=== PATIENT | male | born 1985 | race Caucasian/White ===

== ENCOUNTER 2016-08-24 16:45 | Emergency (ER) | payer BC ==
--- NOTE | 2016-08-24 18:22 | EDM.PDOC ---
ED HPI Skin/Rash - General Chief Complaint: Skin Complaint Stated Complaint: PAIN/INFECTION RT LEG Time Seen by Provider: 08/24/16 16:48 Source: Reports: Patient History Limitations: Reports: No limitations - History of Present Illness INITIAL COMMENTS - FREE TEXT/NARRATIVE: History of present illness: [] Patient complains of 3 days of a leg lesion of his right lateral leg that is causing severe pain. He denies any recent trauma to his leg. Patient states he does not feel well however he has not had any fevers, chills, the lesion is not draining any fluid. Review of systems: As per history of present illness and below otherwise all systems reviewed and negative. Past medical history: As per history of present illness and as reviewed below otherwise noncontributory. Surgical history: As per history of present illness and as reviewed below otherwise noncontributory. Social history: No reported history of drug or alcohol abuse. Family history: As per history of present illness and as reviewed below otherwise noncontributory. Physical exam: General: Well developed, well nourished in NAD HEENT: Atraumatic, normocephalic, pupils reactive, negative for conjunctival pallor or scleral icterus, mucous membranes moist, throat clear, neck supple, nontender, trachea midline. Lungs: Clear to auscultation, breath sounds equal bilaterally, chest nontender. Heart: S1S2, regular, negative for clicks, rubs, or JVD. Abdomen: Soft, nondistended, nontender. Negative for masses or hepatosplenomegaly. Negative for costovertebral tenderness. Pelvis: Stable nontender. Genitourinary: Deferred. Rectal: Deferred. Extremities: Atraumatic, negative for cords or calf pain. Neurovascular unremarkable. Neuro: Awake, alert, oriented. Cranial nerves II through XII unremarkable. Cerebellum unremarkable. Motor and sensory unremarkable throughout. Exam nonfocal. Diagnostics: [] CBC is normal and x-ray done is negative for gas or fracture. Therapeutics: []bactrim bid Impression: []cellulitis right leg Plan: []bactrim, tramadol for pain. warm soaks return if sx worsen Definitive disposition and diagnosis as appropriate pending reevaluation and review of above. - Related Data Allergies Allergy/AdvReac Type Severity Reaction Status Date / Time No Known Allergies Allergy Verified 08/24/16 17:08 Home Meds: Ambulatory Orders Medication Instructions Recorded Confirmed Sulfamethoxazole/Trimethoprim 1 each PO BID #20 tablet 08/24/16 [Bactrim Ds Tablet] traMADol [Ultram] 50 mg PO Q8H PRN #12 tablet 08/24/16 Past Medical History - Past Surgical History Musculoskeletal Surgical History: Reports: Other (see below) Other Musculoskeletal Surgeries/Procedures:: right foot partial amputation with reattachement. Social & Family History - Family History Family Medical History: Noncontributory - Tobacco Use Smoking Status *Q: Light Tobacco Smoker Years of Tobacco use: 3 Packs/Tins Daily: 0.5 - Recreational Drug Use Recreational Drug Use: No ED ROS GENERAL - Review of Systems Review Of Systems: See Below (See history of present illness) ED EXAM, SKIN/RASH Exam: See Below (See history of present illness) Course - Vital Signs Last Recorded V/S: Last Vital Signs Temp 36.6 C 08/24/16 17:09 Pulse 95 08/24/16 17:09 Resp 20 08/24/16 17:09 BP 147/85 H 08/24/16 17:09 Pulse Ox 98 08/24/16 17:09 - Orders/Labs/Meds Orders: Active Orders 24 hr Category Date Time Status Tibia Fibula Rt [CR] Stat Exams 08/24/16 17:15 Taken CULTURE BLOOD [BC] Stat Lab 08/24/16 17:28 Received CULTURE BLOOD [BC] Stat Lab 08/24/16 17:33 Received Blood Culture x2 Reflex Set [OM.PC] Stat Oth 08/24/16 17:16 Ordered Labs: Laboratory Tests 08/24/16 Range/Units 17:28 WBC 9.15 (4.0-11.0) K/uL RBC 4.85 (4.50-5.90) M/uL Hgb 14.7 (13.0-17.0) g/dL Hct 43.8 (38.0-50.0) % MCV 90.3 (80.0-98.0) fL MCH 30.3 (27.0-32.0) pg MCHC 33.6 (31.0-37.0) g/dL RDW Std Deviation 43.6 (28.0-62.0) fl RDW Coeff of Aruna 13 (11.0-15.0) % Plt Count 227 (150-400) K/uL MPV 10.00 (7.40-12.00) fL Neut % (Auto) 79.8 (48.0-80.0) % Lymph % (Auto) 12.9 L (16.0-40.0) % [place] % (Auto) 6.4 (0.0-15.0) % Eos % (Auto) 0.8 (0.0-7.0) % Baso % (Auto) 0.1 (0.0-1.5) % Neut # (Auto) 7.3 H (1.4-5.7) K/uL Lymph # (Auto) 1.2 (0.6-2.4) K/uL [place] # (Auto) 0.6 (0.0-0.8) K/uL Eos # (Auto) 0.1 (0.0-0.7) K/uL Baso # (Auto) 0.0 (0.0-0.1) K/uL Nucleated RBC % 0.0 /100WBC Nucleated RBCs # 0 K/uL Departure - Departure Time of Disposition: 18:31 Disposition: Home, Self-Care 01 Condition: good Clinical Impression: Cellulitis of leg Qualifiers: Laterality: right Qualified Code(s): L03.115 - Cellulitis of right lower limb Clinical Impression: (Ruled Out): Cellulitis and abscess of leg Prescriptions: Sulfamethoxazole/Trimethoprim [Bactrim Ds Tablet] 1 each PO BID #20 tablet traMADol [Ultram] 50 mg PO Q8H PRN #12 tablet PRN Reason: Pain Instructions: Cellulitis, Adult, [id number] Referrals: PCP,None [Primary Care Provider] - Forms: ED Department Discharge Additional Instructions: The following information is given to patients seen in the emergency department who are being discharged to home. This information is to outline your options for follow-up care. We provide all patients seen in our emergency department with a follow-up referral. The need for follow-up, as well as the timing and circumstances, are variable depending upon the specifics of your emergency department visit. If you don't have a primary care physician on staff, we will provide you with a referral. We always advise you to contact your personal physician following an emergency department visit to inform them of the circumstance of the visit and for follow-up with them and/or the need for any referrals to a consulting specialist. The emergency department will also refer you to a specialist when appropriate. This referral assures that you have the opportunity for follow-up care with a specialist. All of these measure are taken in an effort to provide you with optimal care, which includes your follow-up. Under all circumstances we always encourage you to contact your private physician who remains a resource for coordinating your care. When calling for follow-up care, please make the office aware that this follow-up is from your recent emergency room visit. If for any reason you are refused follow-up, please contact the [facility] Emergency Department at and asked to speak to the emergency department charge nurse. Tramadol and Bactrim [facility] [address] [place] [id number] - My Orders Last 24 Hours: My Active Orders 08/24/16 17:15 Tibia Fibula Rt [CR] Stat 08/24/16 17:16 Blood Culture x2 Reflex Set [OM.PC] Stat 08/24/16 17:28 CULTURE BLOOD [BC] Stat 08/24/16 17:33 CULTURE BLOOD [BC] Stat - Assessment/Plan Last 24 Hours: My Active Orders 08/24/16 17:15 Tibia Fibula Rt [CR] Stat 08/24/16 17:16 Blood Culture x2 Reflex Set [OM.PC] Stat 08/24/16 17:28 CULTURE BLOOD [BC] Stat 08/24/16 17:33 CULTURE BLOOD [BC] Stat
[2016-08-24 18:49] VITALS: BP 143/86
--- NOTE | 2016-08-25 14:10 | CR ---
EXAM DATE: 08/24/16 PATIENT'S AGE: 31 Patient: HANSA MORRIS Facility: [place], [place] Site . Site : 1985 Study: XRay Extremity tib/fib [id number]/10/2017 5:56:25 PM Ordering Physician: Joshua Childress Final Report: HISTORY: Cellulitis. Evaluate for gas-forming organism. Sore lateral mid tibia and fibula. FINDINGS: Four views of the right tibia and fibula demonstrate 2 screws within the talus. There is mild degenerative changes of the tibiotalar joint. There is mild prominence of the soft tissues overlying the mid anterior tibia. No air or radiopaque foreign body is identified within the soft tissues. No fracture or dislocation seen. IMPRESSION: No air is identified within the site of cellulitis over the mid right tibia. Dictated by Melvi Barrera MD @ 08/24/2016 6:21:29 PM Dictated by: Melvi Barrera MD @ 08/24/2016 18:21:31 (Electronic Signature) Report Signed by Proxy and Original Signed Document filed in the Medical Record. FAITH
== END 2016-08-24 18:48 | disposition home or self-care (01) ==
LOC: MW.ED 16:45
DX: L03.115 Cellulitis of right lower limb (principal); F17.210 Nicotine dependence, cigarettes, uncomplicated; Z98.890 Other specified postprocedural states
CPT/HCPCS: 36415; 73590-26-RT; 73590-RT; 85025; 87040; 99283; 99284

== ENCOUNTER 2016-12-06 15:11 | Emergency (ER) | payer BC ==
--- NOTE | 2016-12-06 15:19 | EDM.PDOC ---
ED HPI GENERAL MEDICAL PROBLEM - General Chief Complaint: Skin Complaint Stated Complaint: RASH ON ABDOMEN Time Seen by Provider: 12/06/16 15:19 Source of Information: Reports: Patient History Limitations: Reports: No Limitations - History of Present Illness INITIAL COMMENTS - FREE TEXT/NARRATIVE: HISTORY AND PHYSICAL: History of present illness: [Patient comes to the emergency room complaining of red itchy spots to his trunk and extremities. Started with itchy sensation behind his left ear but he does not believe he had any lesions. Itching and lesions began on his chest and abdomen the next day gradually spread to upper and lower extremities. Have been present for the past 4 days that are gradually worsening. Patient states that he has not been using any new laundry soap, lotions or shower gels. No one else in his home has similar symptoms. He [place] but his and children were there as well and they're symptom-free. He lives in an apartment with his family. He has otherwise been feeling well. No recent illnesses or infections. No fever or chills. No chest pain shortness of breath or difficulty breathing. No abdominal pain. He has tried oatmeal baths, calamine lotion, and Aloe Vera cream with no improvement in his itching. He has no pain associated.] Review of systems: As per history of present illness and below otherwise all systems reviewed and negative. Past medical history: As per history of present illness and as reviewed below otherwise noncontributory. Surgical history: As per history of present illness and as reviewed below otherwise noncontributory. Social history: No reported history of drug or alcohol abuse. Family history: As per history of present illness and as reviewed below otherwise noncontributory. Physical exam: HEENT: Atraumatic, normocephalic. No lesions behind either ear. Oral mucous membranes moist, no lesions noted. throat clear., neck supple, nontender, no lymphadenopathy. Lungs: Clear to auscultation, breath sounds equal bilaterally. Heart: S1S2, regular. Abdomen: Soft, nondistended, nontender. Skin: Well circumscribed erythematous maculopapular lesions scattered across chest, back, abdomen, upper and lower extremities. Scratch raymond noted to abdomen and left upper extremity. These lesions are also in the web of his fingers but they do not appear to be alyson type lesions. Genitourinary: Deferred. Rectal: Deferred. Extremities: Atraumatic, negative for cords or calf pain. Neurovascular unremarkable. Neuro: Awake, alert, oriented. Motor and sensory unremarkable throughout. Exam nonfocal. Therapeutics: [SoluMedrol 125mg IM] Impression: [allergic reaction] Plan: [Patient symptoms appear consistent with allergic reaction though his skin lesions do not look like a typical wheal/welt presentation. Will treat with Solu -Medrol 125 mg IM in the ER and he is given Rx for Medrol Dosepak. Encouraged him to establish care with a local primary care provider and to follow-up there if he has further concerns regarding this rash. Recommend Claritin or Zyrtec daily, and Benadryl at bedtime. He is in agreement with today's plan. All questions are answered and concerns are addressed.] Definitive disposition and diagnosis as appropriate pending reevaluation and review of above. - Related Data Allergies Allergy/AdvReac Type Severity Reaction Status Date / Time No Known Allergies Allergy Verified 12/06/16 15:19 Home Meds: Home Meds . [No Known Home Meds] 12/06/16 [History] Past Medical History - Past Surgical History Musculoskeletal Surgical History: Reports: Other (See Below) Social & Family History - Family History Family Medical History: Noncontributory - Tobacco Use Smoking Status *Q: Light Tobacco Smoker Years of Tobacco use: 3 Packs/Tins Daily: 0.5 - Recreational Drug Use Recreational Drug Use: No ED ROS GENERAL - Review of Systems Review Of Systems: ROS reveals no pertinent complaints other than HPI. ED EXAM, SKIN/RASH Exam: See Below Course - Vital Signs Last Recorded V/S: Last Vital Signs Temp 98.3 F 12/06/16 15:21 Pulse 80 12/06/16 15:21 Resp 18 12/06/16 15:21 BP 121/70 12/06/16 15:21 Pulse Ox 97 12/06/16 15:21 - Orders/Labs/Meds Meds: Medications Discontinued Medications Generic Name Dose Route Start Last Admin Trade Name Freq PRN Reason Stop Dose Admin Methylprednisolone Sodium Succinate 125 mg 12/06/16 15:27 12/06/16 15:35 Solu-Medrol IM 12/06/16 15:28 125 mg ONETIME ONE Administration Departure - Departure Time of Disposition: 15:30 Disposition: Home, Self-Care 01 Condition: Good Clinical Impression: Hives - Discharge Information Instructions: Hives Referrals: PCP,None [Primary Care Provider] - Forms: ED Department Discharge Additional Instructions: The following information is given to patients seen in the emergency department who are being discharged to home. This information is to outline your options for follow-up care. We provide all patients seen in our emergency department with a follow-up referral. The need for follow-up, as well as the timing and circumstances, are variable depending upon the specifics of your emergency department visit. If you don't have a primary care physician on staff, we will provide you with a referral. We always advise you to contact your personal physician following an emergency department visit to inform them of the circumstance of the visit and for follow-up with them and/or the need for any referrals to a consulting specialist. The emergency department will also refer you to a specialist when appropriate. This referral assures that you have the opportunity for follow-up care with a specialist. All of these measure are taken in an effort to provide you with optimal care, which includes your follow-up. Under all circumstances we always encourage you to contact your private physician who remains a resource for coordinating your care. When calling for follow-up care, please make the office aware that this follow-up is from your recent emergency room visit. If for any reason you are refused follow-up, please contact the [facility] emergency department at and asked to speak to the emergency department charge nurse. [address] [address] Establish care with a local primary care provider at the clinic listed above. Take Claritin 10 mg or Zyrtec 10 mg daily to reduce itching and allergic response. Return to ER as needed as discussed.
[2016-12-06 15:27] VITALS: BP 121/70
[2016-12-06] MEDS ORDERED: methylPREDNISolone Sodium Succinate 125 MG/2 ML SDV IM ONE (15:27)
== END 2016-12-06 16:04 | disposition home or self-care (01) ==
LOC: MW.ED 15:11
DX: L50.0 Allergic urticaria (principal); F17.210 Nicotine dependence, cigarettes, uncomplicated
CPT/HCPCS: 99283; J2930

== ENCOUNTER 2016-12-24 05:15 | Emergency (ER) | payer OTHER, BC ==
[2016-12-24] MEDS ORDERED: Bacitracin Oint 1 GM U/D Packet TOP ONE (05:28)
[2016-12-24] MEDS ORDERED: Ketorolac 60 MG/2 ML SDV IM ONE (05:40)
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
[2016-12-24] MEDS ORDERED: Lidocaine 1% with EPINEPHrine 1:100,000 20 ML MDV INJECT ONE (05:52)
[2016-12-24 06:48] VITALS: BP 122/79
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
== END 2016-12-24 06:50 | disposition home or self-care (01) ==
LOC: MW.ED 05:15
DX: S01.111A Laceration without foreign body of right eyelid and periocular area, initial encounter (principal); S20.219A Contusion of unspecified front wall of thorax, initial encounter; F17.210 Nicotine dependence, cigarettes, uncomplicated; V89.2XXA Person injured in unspecified motor-vehicle accident, traffic, initial encounter
CPT/HCPCS: 12011; 70486; 71020; 96372; 99284; J1885; 99283

== ENCOUNTER 2018-08-29 10:23 | Emergency (ER) | payer BC ==
[2018-08-29] MEDS ORDERED: Acetaminophen/HYDROcodone 325-5 MG Tab PO ONE (11:16)
[2018-08-29] MEDS ORDERED: Sulfamethoxazole/Trimethoprim 800-160 MG Tab PO ONE (11:16)
--- NOTE | 2018-08-29 11:18 | EDM.PDOC ---
ED HPI GENERAL MEDICAL PROBLEM - General Chief Complaint: Skin Complaint Stated Complaint: INFECTION ON LEG Time Seen by Provider: 08/29/18 11:01 Source of Information: Reports: Patient History Limitations: Reports: No Limitations - History of Present Illness INITIAL COMMENTS - FREE TEXT/NARRATIVE: HISTORY AND PHYSICAL: History of present illness: Patient is a 33-year-old male who presents to the emergency room with complaints of an abscess to the right mid lateral carcamo. 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 Noticed a small localized area that appeared to be like a "pimple" which is progressively gotten larger and more red surrounding the site. The area is fluctuant although he states that he has not had any drainage from the site. Patient denies any fever, chills, headache, change in vision, syncope or near syncope. Denies any chest pain, back pain, shortness of breath or cough. Denies any abdominal pain, nausea, vomiting, diarrhea, constipation or dysuria. Has not noted any blood in urine or stool. Patient has been eating and drinking appropriately. Review of systems: As per history of present illness and below otherwise all systems reviewed and negative. Past medical history: As per history of present illness and as reviewed below otherwise noncontributory. Surgical history: As per history of present illness and as reviewed below otherwise noncontributory. Social history: See social history for further information Family history: As per history of present illness and as reviewed below otherwise noncontributory. Physical exam: General: Well-developed and well-nourished 33-year-old male. Alert and oriented. Nontoxic appearing and in no acute distress. HEENT: Atraumatic, normocephalic, pupils equal and reactive bilaterally, negative for conjunctival pallor or scleral icterus, neck supple, nontender, trachea midline. No drooling or trismus noted. No meningeal signs. No hot potato voice noted. Lungs: Clear to auscultation, breath sounds equal bilaterally, chest nontender. Heart: S1S2, regular rate and rhythm without overt murmur Abdomen: Soft, nondistended, nontender. Pelvis: Stable nontender. Genitourinary: Deferred. Rectal: Deferred. Skin: Quarter size area of fluctuance with pinpoint center, tender with palpation. Palmar sized surface of erythema surrounding the abscess. Otherwise skin is Intact, warm, dry. No lesions or rashes noted. Extremities: See skin. Atraumatic, moves all extremities per self with difficulty or deficits, negative for cords or calf pain. Neurovascular unremarkable. Neuro: Awake, alert, oriented. Cranial nerves II through XII unremarkable. Cerebellum unremarkable. Motor and sensory unremarkable throughout. Exam nonfocal. Notes: 1% lidocaine was used to anesthetize the area. 11 blade was used to I&D the area , and not conditions were broken up. Minimal amount of purulent drainage was expressed from the site. The surrounding erythema was outlined with surgical marker. We discussed the need for close follow-up with primary care as there is both the abscess and early cellulitis surrounding skin. Supportive care measures were reviewed and discussed. Voices understanding and is agreeable to plan of care. Denies any further questions or concerns at this time. Diagnostics: None Therapeutics: I&D, Bactrim DS, [place] Prescription: Bactrim DS Tramadol Impression: Abscess Cellulitis, right lower extremity Plan: 1. Keep the area clean and dry. Continue to monitor for signs of improvement. Monitor the area that was outlined with the surgical marker as we discussed. 2. Take the antibiotic as directed. You may use the tramadol as directed. Do not take with driving or needing to be functioning outside of the house assist does cause drowsiness. 3. Follow-up with your primary care provider as we discussed. Return to the ED as needed and as discussed. Definitive disposition and diagnosis as appropriate pending reevaluation and review of above. Right Lower Leg Pain Score (Numeric/FACES): 10 - Related Data Allergies Allergy/AdvReac Type Severity Reaction Status Date / Time No Known Allergies Allergy Verified 12/24/16 05:27 Home Meds: Home Meds Sulfamethoxazole/Trimethoprim [Bactrim Ds Tablet] 1 each PO BID 10 Days #20 tablet 08/29/18 [Rx] traMADol [Ultram] 50 mg PO Q4H PRN #15 tab 08/29/18 [Rx] Past Medical History - Past Health History Medical/Surgical History: Denies Medical/Surgical History HEENT History: Reports: None Cardiovascular History: Reports: None Respiratory History: Reports: None Gastrointestinal History: Reports: None Genitourinary History: Reports: None Neurological History: Reports: None Psychiatric History: Reports: None Endocrine/Metabolic History: Reports: None Hematologic History: Reports: None Oncologic (Cancer) History: Reports: None Dermatologic History: Reports: None - Infectious Disease History Infectious Disease History: Reports: MRSA - Past Surgical History Head Surgeries/Procedures: Reports: None Musculoskeletal Surgical History: Reports: Other (See Below) Other Musculoskeletal Surgeries/Procedures:: ankle surgery Social & Family History - Family History Family Medical History: Noncontributory - Tobacco Use Smoking Status *Q: Never Smoker - Caffeine Use Caffeine Use: Reports: Coffee - Recreational Drug Use Recreational Drug Use: No ED ROS GENERAL - Review of Systems Review Of Systems: ROS reveals no pertinent complaints other than HPI. ED EXAM, SKIN/RASH Exam: See Below Course - Vital Signs Last Recorded V/S: Last Vital Signs Temp 97.2 F 08/29/18 11:54 Pulse 68 08/29/18 11:54 Resp 18 08/29/18 10:57 BP 130/80 08/29/18 11:54 Pulse Ox 97 08/29/18 11:54 - Orders/Labs/Meds Orders: Active Orders 24 hr Category Date Time Status Communication Order [RC] STAT Care 08/29/18 11:18 Active Meds: Medications Discontinued Medications Generic Name Dose Route Start Last Admin Trade Name Freq PRN Reason Stop Dose Admin Hydrocodone Bitart/Acetaminophen 1 tab 08/29/18 11:16 08/29/18 11:38 [place] 325-5 Mg PO 08/29/18 11:17 1 tab ONETIME ONE Administration Lidocaine HCl 5 ml 08/29/18 11:03 08/29/18 11:54 Xylocaine-Mpf 1% INJECT 08/29/18 11:04 5 ml ONETIME ONE Administration Trimethoprim/Sulfamethoxazole 1 tab 08/29/18 11:16 08/29/18 11:39 Septra Ds PO 08/29/18 11:17 1 tab ONETIME ONE Administration Departure - Departure Time of Disposition: 11:17 Disposition: Home, Self-Care 01 Clinical Impression: Abscess Cellulitis Qualifiers: Site of cellulitis: extremity Site of cellulitis of extremity: lower extremity Laterality: right Qualified Code(s): L03.115 - Cellulitis of right lower limb - Discharge Information Prescriptions: Sulfamethoxazole/Trimethoprim [Bactrim Ds Tablet] 1 each PO BID 10 Days #20 tablet traMADol [Ultram] 50 mg PO Q4H PRN #15 tab PRN Reason: Pain Instructions: Skin Abscess, [id number], Cellulitis, Adult, [id number] Referrals: PCP,Unknown [Primary Care Provider] - Forms: ED Department Discharge Additional Instructions: The following information is given to patients seen in the emergency department who are being discharged to home. This information is to outline your options for follow-up care. We provide all patients seen in our emergency department with a follow-up referral. The need for follow-up, as well as the timing and circumstances, are variable depending upon the specifics of your emergency department visit. If you don't have a primary care physician on staff, we will provide you with a referral. We always advise you to contact your personal physician following an emergency department visit to inform them of the circumstance of the visit and for follow-up with them and/or the need for any referrals to a consulting specialist. The emergency department will also refer you to a specialist when appropriate. This referral assures that you have the opportunity for follow-up care with a specialist. All of these measure are taken in an effort to provide you with optimal care, which includes your follow-up. Under all circumstances we always encourage you to contact your private physician who remains a resource for coordinating your care. When calling for follow-up care, please make the office aware that this follow-up is from your recent emergency room visit. If for any reason you are refused follow-up, please contact the [facility] Emergency Department at and asked to speak to the emergency department charge nurse. [facility] Primary Care [address] [place] [id number] [facility] [address] [place] [id number] 1. Keep the area clean and dry. Continue to monitor for signs of improvement. Monitor the area that was outlined with the surgical marker as we discussed. 2. Take the antibiotic as directed. You may use the tramadol as directed. Do not take with driving or needing to be functioning outside of the house assist does cause drowsiness. 3. Follow-up with your primary care provider as we discussed. Return to the ED as needed and as discussed. - My Orders Last 24 Hours: My Active Orders 08/29/18 11:18 Communication Order [RC] STAT - Assessment/Plan Last 24 Hours: My Active Orders 08/29/18 11:18 Communication Order [RC] STAT
[2018-08-29 11:55] VITALS: BP 130/80
== END 2018-08-29 11:55 | disposition home or self-care (01) ==
LOC: MW.ED 10:23
DX: L02.415 Cutaneous abscess of right lower limb (principal); L03.115 Cellulitis of right lower limb; Z79.899 Other long term (current) drug therapy
CPT/HCPCS: 10060; 99282; A9270; J2001

== ENCOUNTER 2018-11-04 20:48 | Emergency (ER) | payer BC ==
[2018-11-04] MEDS ORDERED: Sodium Chloride 0.9% 1,000 ML IV ONE (21:33)
--- NOTE | 2018-11-04 21:34 | EDM.PDOC ---
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 The spillover last 5 days. No fever chills nausea vomiting or other complaints Review of systems: As per history of present illness and below otherwise all systems reviewed and negative. Past medical history: As per history of present illness and as reviewed below otherwise noncontributory. Surgical history: As per history of present illness and as reviewed below otherwise noncontributory. Social history: No reported history of drug or alcohol abuse. Family history: As per history of present illness and as reviewed below otherwise noncontributory. Physical exam: HEENT: Atraumatic, normocephalic, pupils reactive, negative for conjunctival pallor or scleral icterus, mucous membranes moist, throat clear, neck supple, nontender, trachea midline. Lungs: Clear to auscultation, breath sounds equal bilaterally, chest nontender. Heart: S1S2, regular, negative for clicks, rubs, or JVD. Abdomen: Soft, nondistended, nontender. Negative for masses or hepatosplenomegaly. Negative for costovertebral tenderness. Pelvis: Stable nontender. Genitourinary patient has a area of erythema and induration in his left groin with no fluctuance this is approximately 3 cm x 5 cm. And tender to palpation Rectal: Deferred. Extremities: Atraumatic, negative for cords or calf pain. Neurovascular unremarkable. Neuro: Awake, alert, oriented. Cranial nerves II through XII unremarkable. Cerebellum unremarkable. Motor and sensory unremarkable throughout. Exam nonfocal. Diagnostics: CBC CMP CT abdomen and pelvis with IV contrast Therapeutics: Saline 1 L bolus Impression: #1 left groin cellulitis rule out abscess Definitive disposition and diagnosis as appropriate pending reevaluation and review of above. left groin Pain Score (Numeric/FACES): 8 - Related Data Allergies Allergy/AdvReac Type Severity Reaction Status Date / Time No Known Allergies Allergy Verified 11/04/18 21:26 Home Meds: Home Meds . [No Known Home Meds] 11/04/18 [History] Past Medical History - Past Health History Medical/Surgical History: Denies Medical/Surgical History HEENT History: Reports: None Cardiovascular History: Reports: None Respiratory History: Reports: None Gastrointestinal History: Reports: None Genitourinary History: Reports: None Neurological History: Reports: None Psychiatric History: Reports: None Endocrine/Metabolic History: Reports: None Hematologic History: Reports: None Oncologic (Cancer) History: Reports: None Dermatologic History: Reports: None - Infectious Disease History Infectious Disease History: Reports: Chicken Pox - Past Surgical History Head Surgeries/Procedures: Reports: None Musculoskeletal Surgical History: Reports: Other (See Below) Other Musculoskeletal Surgeries/Procedures:: 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 Social & Family History - Family History Family Medical History: Noncontributory - Caffeine Use Caffeine Use: Reports: Coffee - Recreational Drug Use Recreational Drug Use: Yes ED ROS GENERAL - Review of Systems Review Of Systems: ROS reveals no pertinent complaints other than HPI. ED EXAM, SKIN/RASH Exam: See Below (See dictation) Course - Vital Signs Last Recorded V/S: Last Vital Signs Temp 36.9 C 11/04/18 21:23 Pulse 93 11/04/18 21:23 Resp 18 11/04/18 21:23 BP 149/93 H 11/04/18 21:23 Pulse Ox 96 11/04/18 21:23 - Orders/Labs/Meds Labs: Laboratory Tests 11/04/18 11/04/18 Range/Units 21:39 21:39 WBC 11.81 H (4.0-11.0) K/uL RBC 4.66 (4.50-5.90) M/uL Hgb 14.5 (13.0-17.0) g/dL Hct 41.2 (38.0-50.0) % MCV 88.4 (80.0-98.0) fL MCH 31.1 (27.0-32.0) pg MCHC 35.2 (31.0-37.0) g/dL RDW Std Deviation 41.0 (28.0-62.0) fl RDW Coeff of Aruna 13 (11.0-15.0) % Plt Count 204 (150-400) K/uL MPV 10.70 (7.40-12.00) fL Neut % (Auto) 83.3 H (48.0-80.0) % Lymph % (Auto) 8.9 L (16.0-40.0) % [place] % (Auto) 6.8 (0.0-15.0) % Eos % (Auto) 0.9 (0.0-7.0) % Baso % (Auto) 0.1 (0.0-1.5) % Neut # (Auto) 9.8 H (1.4-5.7) K/uL Lymph # (Auto) 1.1 (0.6-2.4) K/uL [place] # (Auto) 0.8 (0.0-0.8) K/uL Eos # (Auto) 0.1 (0.0-0.7) K/uL Baso # (Auto) 0.0 (0.0-0.1) K/uL Nucleated RBC % 0.0 /100WBC Nucleated RBCs # 0 K/uL Sodium 134 L (136-148) mmol/L Potassium 3.6 (3.5-5.1) mmol/L Chloride 101 (98-107) mmol/L Carbon Dioxide 24.8 (21.0-32.0) mmol/L BUN 18 (7.0-18.0) mg/dL Creatinine 0.8 (0.8-1.3) mg/dL Est Cr Clr Drug Dosing 155.50 mL/min Estimated GFR (MDRD) > 60.0 ml/min Glucose 106 (74-106) mg/dL Calcium 9.0 (8.5-10.1) mg/dL Total Bilirubin 0.7 (0.2-1.0) mg/dL AST 17 (15-37) IU/L ALT 28 (14-63) IU/L Alkaline Phosphatase 73 (46-116) U/L Total Protein 7.4 (6.4-8.2) g/dL Albumin 4.2 (3.4-5.0) g/dL Globulin 3.2 (2.6-4.0) g/dL Albumin/Globulin Ratio 1.3 (0.9-1.6) Meds: Medications Discontinued Medications Generic Name Dose Route Start Last Admin Trade Name Freq PRN Reason Stop Dose Admin Sodium Chloride 1,000 mls @ 999 mls/hr 11/04/18 21:33 11/04/18 21:45 Normal Saline IV 11/04/18 22:33 999 mls/hr STAT ONE Administration Iopamidol 100 ml 11/04/18 23:10 11/04/18 23:11 Isovue Multipack-370 (76%) IVPUSH 11/04/18 23:11 100 ml ONETIME STA Administration Departure - Departure Time of Disposition: 23:26 Disposition: Home, Self-Care 01 Condition: Good Clinical Impression: Cellulitis Qualifiers: Site of cellulitis: extremity Site of cellulitis of extremity: lower extremity Laterality: right Qualified Code(s): L03.115 - Cellulitis of right lower limb - Discharge Information Referrals: PCP,None [Primary Care Provider] - Forms: ED Department Discharge Additional Instructions: The following information is given to patients seen in the emergency department who are being discharged to home. This information is to outline your options for follow-up care. We provide all patients seen in our emergency department with a follow-up referral. The need for follow-up, as well as the timing and circumstances, are variable depending upon the specifics of your emergency department visit. If you don't have a primary care physician on staff, we will provide you with a referral. We always advise you to contact your personal physician following an emergency department visit to inform them of the circumstance of the visit and for follow-up with them and/or the need for any referrals to a consulting specialist. The emergency department will also refer you to a specialist when appropriate. This referral assures that you have the opportunity for followup care with a specialist. All of these measure are taken in an effort to provide you with optimal care, which includes your followup. Under all circumstances we always encourage you to contact your private physician who remains a resource for coordinating your care. When calling for followup care, please make the office aware that this follow-up is from your recent emergency room visit. If for any reason you are refused follow-up, please contact the [facility] emergency department at and asked to speak to the emergency department charge nurse. Clindamycin and Bactrim as prescribed warm compresses as directed follow-up private medical doctor for reevaluation and return as needed as discussed
[2018-11-04 22:12] LABS: CHLORIDE,CL 101 mmol/L (98-107); SODIUM,NA 134 mmol/L (136-148)
[2018-11-04] MEDS ORDERED: Iopamidol 755 MG/ML 500 ML Multipack Bottle IVPUSH STA (23:10)
--- NOTE | 2018-11-04 23:24 | CT ---
INDICATION: Pain and swelling in left groin area. CT ABDOMEN AND PELVIS WITH CONTRAST TECHNIQUE: Multidetector CT imaging was performed through the abdomen and pelvis following intravenous contrast administration using 100 mL Isovue 370. Coronal and sagittal reconstructions were generated. COMPARISON: None. FINDINGS: Lower chest: Minimal basilar lung atelectasis. Liver: Within normal limits. Gallbladder and bile ducts: No gallbladder wall thickening or calcified gallstones. No biliary dilation identified. Pancreas: Unremarkable. Spleen: Normal. Adrenals: No nodules or masses. Kidneys, ureters, and urinary bladder: Small nonobstructing left intrarenal stones. Very small left renal cyst. No hydronephrosis. No bladder mass or definite wall thickening. Gastrointestinal tract: Normal caliber bowel without wall thickening. The appendix is normal. Vascular structures: Normal for age. Peritoneum: No free air, abscess, or significant free fluid. Lymph nodes: No pathologically enlarged nodes identified. Reproductive organs: No pelvic masses. Bones and extra-abdominal soft tissues: Unremarkable bony structures. Subcutaneous fat stranding and skin thickening over the left groin, consistent with superficial cellulitis. No fluid collections suggestive of abscess. IMPRESSION: 1. Subcutaneous fat stranding and skin thickening over the left groin consistent with superficial cellulitis. No abscess identified. 2. Small nonobstructing left intrarenal stones. ANDREINA DC MD [employer] Dictated by Dwayne Dc MD @ 11/04/2018 11:22:56 PM Dictated by: Dwayne Dc MD @ 11/04/2018 23:23:20 (Electronically Signed)
[2018-11-04 23:43] VITALS: BP 130/80
== END 2018-11-04 23:42 | disposition home or self-care (01) ==
LOC: MW.ED 20:48
DX: L03.115 Cellulitis of right lower limb (principal)
CPT/HCPCS: 74177; 80053; 85025; 96360; 99284; J7040; Q9967

== ENCOUNTER 2018-11-06 20:37 | Observation (INO) | payer BC ==
[2018-11-06] MEDS ORDERED: Sodium Chloride 0.9% 1,000 ML IV ONE (20:45)
--- NOTE | 2018-11-06 20:59 | EDM.PDOC ---
ED HPI GENERAL MEDICAL PROBLEM - General Chief Complaint: Skin Complaint Stated Complaint: HIP/PELVIS INFECTION Time Seen by Provider: 11/06/18 20:37 Source of Information: Reports: Patient History Limitations: Reports: No Limitations - History of Present Illness INITIAL COMMENTS - FREE TEXT/NARRATIVE: HISTORY AND PHYSICAL: History of present illness: Patient is a 33-year-old male presents to the ED today for concern of a cellulitis infection that has worsened despite outpatient treatment. Patient was seen here in the ED on 11/04/18 and was given a trial of outpatient antibiotics for a cellulitis. Patient returns for worsening of the cellulitis despite taking antibiotics. Patient denies any new symptoms or any other concerns at this time. While here in the ED 2 days ago, he did have a CT scan to rule out abscess was negative. Patient denies fever, chills, chest pain, shortness of breath, or cough. Denies headache, neck stiff ness, change in vision, syncope, or near syncope. Denies nausea, vomiting, abdominal pain, diarrhea, constipation, or dysuria. Has not noted any blood in urine or stool. Patient has been eating and drinking appropriately. Review of systems: As per history of present illness and below otherwise all systems reviewed and negative. Past medical history: As per history of present illness and as reviewed below otherwise noncontributory. Surgical history: As per history of present illness and as reviewed below otherwise noncontributory. Social history: See social history for further information Family history: As per history of present illness and as reviewed below otherwise noncontributory. Physical exam: General: Patient is alert, oriented, and in no acute distress. Patient sitting comfortably on exam table. HEENT: Atraumatic, normocephalic, pupils equal and reactive bilaterally, negative for conjunctival pallor or scleral icterus, mucous membranes moist, TMs normal bilaterally, throat clear, neck supple, nontender, trachea midline. No drooling or trismus noted. No meningeal signs. No hot potato voice noted. Lungs: Clear to auscultation, breath sounds equal bilaterally, chest nontender. Heart: S1S2, regular rate and rhythm without overt murmur Abdomen: Soft, nondistended, nontender. Negative for masses or hepatosplenomegaly. Negative for costovertebral tenderness. Pelvis: Stable nontender. Genitourinary: Deferred. Rectal: Deferred. Skin: Erythema is spread up into the left flank area and down into the left leg. There is 1 area of swelling in the left groin approximately 8cm by 3 cm. Extremities: Atraumatic, negative for cords or calf pain. Neurovascular unremarkable. Neuro: Awake, alert, oriented. Cranial nerves II through XII unremarkable. Cerebellum unremarkable. Motor and sensory unremarkable throughout. Exam nonfocal. Notes: Dr. Olmos directly involved in patient care. Dr. Hoffman was directly involved in patient care. Dr. Wong consult on patient and will admit to observation. Voices understanding and is agreeable to plan of care. Denies any further questions or concerns at this time. Diagnostics: CBC, CMP, UA, lactate, blood cultures x 2, US groin Therapeutics: NS, vancomycin Impression: Groin cellulitis Failed outpatient treatment Plan: 1. Admit to observation to Dr. Wong. Definitive disposition and diagnosis as appropriate pending reevaluation and review of above. Headache Pain Score (Numeric/FACES): 6 left groin Pain Score (Numeric/FACES): 7 - Related Data Allergies Allergy/AdvReac Type Severity Reaction Status Date / Time No Known Allergies Allergy Verified 11/07/18 01:00 Home Meds: Home Meds Sulfamethoxazole/Trimethoprim [Bactrim Ds Tablet] 1 each PO BID 10 Days #20 tablet 11/08/18 [Rx] Past Medical History - Past Health History Medical/Surgical History: Denies Medical/Surgical History HEENT History: Reports: None Cardiovascular History: Reports: None Respiratory History: Reports: None Gastrointestinal History: Reports: None Genitourinary History: Reports: None Neurological History: Reports: None Psychiatric History: Reports: None Endocrine/Metabolic History: Reports: None Hematologic History: Reports: None Oncologic (Cancer) History: Reports: None Dermatologic History: Reports: None - Infectious Disease History Infectious Disease History: Reports: Chicken Pox - Past Surgical History Head Surgeries/Procedures: Reports: None Musculoskeletal Surgical History: Reports: Other (See Below) Other Musculoskeletal Surgeries/Procedures:: 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 Social & Family History - Family History Family Medical History: Noncontributory - Caffeine Use Caffeine Use: Reports: Coffee ED ROS GENERAL - Review of Systems Review Of Systems: ROS reveals no pertinent complaints other than HPI. ED EXAM, SKIN/RASH Exam: See Below (see dictation) Course - Vital Signs Last Recorded V/S: Last Vital Signs Temp 36.7 C 11/08/18 08:00 Pulse 73 11/08/18 08:00 Resp 18 11/08/18 08:00 BP 130/77 11/08/18 08:00 Pulse Ox 96 11/08/18 08:00 - Orders/Labs/Meds Labs: Laboratory Tests 11/06/18 11/06/18 11/06/18 Range/Units 20:58 20:58 20:58 WBC 9.78 (4.0-11.0) K/uL RBC 4.74 (4.50-5.90) M/uL Hgb 14.2 (13.0-17.0) g/dL Hct 42.3 (38.0-50.0) % MCV 89.2 (80.0-98.0) fL MCH 30.0 (27.0-32.0) pg MCHC 33.6 (31.0-37.0) g/dL RDW Std Deviation 41.1 (28.0-62.0) fl RDW Coeff of Aruna 13 (11.0-15.0) % Plt Count 240 (150-400) K/uL MPV 10.50 (7.40-12.00) fL Neut % (Auto) 81.1 H (48.0-80.0) % Lymph % (Auto) 10.2 L (16.0-40.0) % [place] % (Auto) 7.0 (0.0-15.0) % Eos % (Auto) 1.5 (0.0-7.0) % Baso % (Auto) 0.2 (0.0-1.5) % Neut # (Auto) 7.9 H (1.4-5.7) K/uL Lymph # (Auto) 1.0 (0.6-2.4) K/uL [place] # (Auto) 0.7 (0.0-0.8) K/uL Eos # (Auto) 0.2 (0.0-0.7) K/uL Baso # (Auto) 0.0 (0.0-0.1) K/uL Nucleated RBC % 0.0 /100WBC Nucleated RBCs # 0 K/uL Lactate 0.9 (0.20-2.00) mmol/L Sodium 140 (136-148) mmol/L Potassium 4.2 (3.5-5.1) mmol/L Chloride 105 (98-107) mmol/L Carbon Dioxide 23.9 (21.0-32.0) mmol/L BUN 17 (7.0-18.0) mg/dL Creatinine 1.1 (0.8-1.3) mg/dL Est Cr Clr Drug Dosing TNP Estimated GFR (MDRD) > 60.0 ml/min Glucose 125 H (74-106) mg/dL Calcium 8.9 (8.5-10.1) mg/dL Total Bilirubin 0.3 (0.2-1.0) mg/dL AST 44 H (15-37) IU/L ALT 53 (14-63) IU/L Alkaline Phosphatase 80 (46-116) U/L Total Protein 7.3 (6.4-8.2) g/dL Albumin 3.8 (3.4-5.0) g/dL Globulin 3.5 (2.6-4.0) g/dL Albumin/Globulin Ratio 1.1 (0.9-1.6) Meds: Medications Discontinued Medications Generic Name Dose Route Start Last Admin Trade Name Freq PRN Reason Stop Dose Admin Acetaminophen 650 mg 11/06/18 22:14 11/08/18 08:52 Tylenol PO 650 mg Q6H PRN Administration Pain (mild 1-3) Acetaminophen 325 mg 11/07/18 16:09 Tylenol PO Q4H PRN Fever Greater Than 101 Hydrocodone Bitart/Acetaminophen 1 - 2 tab 11/07/18 16:09 11/08/18 11:33 [place] 325-5 Mg PO 2 tab Q4H PRN Administration Pain (moderate 4-6) Albuterol 2.5 mg 11/07/18 16:05 Proventil Neb Soln NEB ONETIME PRN Wheezing Atropine Sulfate 0.5 mg 11/07/18 16:05 Atropine 0.1 Mg/Ml IVPUSH ASDIRECTED PRN Hypo-perfusion Atropine Sulfate 1 mg 11/07/18 16:05 Atropine 0.1 Mg/Ml IVPUSH ASDIRECTED PRN Hypo-Perfusion Bupivacaine HCl Confirm 11/07/18 14:51 Sensorcaine-Mpf 0.5% Administered 11/07/18 14:52 Dose 10 ml .ROUTE .STK-MED ONE Cefazolin Sodium Confirm 11/07/18 14:51 Ancef Administered 11/07/18 14:52 Dose 1 gm .ROUTE .STK-MED ONE Dextrose/Water 50 ml 11/07/18 16:05 Dextrose 50% In Water IVPUSH ASDIRECTED PRN Hypoglycemia Enoxaparin Sodium 40 mg 11/07/18 06:45 11/08/18 06:32 Lovenox SUBCUT 40 mg Q24H IZZY Administration Epinephrine HCl 1 mg 11/07/18 16:05 Epinephrine 1:10,000 IVPUSH ASDIRECTED PRN ACLS Guidelines Fentanyl Confirm 11/07/18 15:08 Sublimaze Administered 11/07/18 15:09 Dose 100 mcg .ROUTE .STK-MED ONE Fentanyl 50 mcg 11/07/18 16:05 11/07/18 16:22 Sublimaze IVPUSH 50 mcg Q5M PRN Administration Pain Fentanyl Confirm 11/07/18 16:20 11/07/18 16:30 Sublimaze Administered 11/07/18 16:21 50 mcg Dose Administration 100 mcg .ROUTE .STK-MED ONE Sodium Chloride 1,000 mls @ 999 mls/hr 11/06/18 20:45 11/06/18 21:29 Normal Saline IV 11/06/18 21:45 999 mls/hr STAT ONE Administration Vancomycin HCl 1 gm/ Sodium 250 mls @ 250 mls/hr 11/06/18 20:45 11/06/18 22: 32 Chloride IV 11/06/18 21:44 250 mls/hr ONETIME ONE Administration Sodium Chloride 1,000 mls @ 75 mls/hr 11/06/18 22:15 11/07/18 00:03 Normal Saline IV 75 mls/hr ASDIRECTED IZZY Administration Vancomycin HCl 1.5 gm/ Sodium 500 mls @ 333.333 mls/hr 11/07/18 03:00 03:45 Chloride IV 333.333 mls/hr Q8H IZZY Administration Vancomycin HCl 1.25 gm/ Sodium 250 mls @ 166.667 mls/hr 11/07/18 11:00 11:26 Chloride IV Not Given Q8H IZZY Lactated Ringer's 1,000 mls @ 125 mls/hr 11/07/18 16:15 11/08/18 03:52 Ringers, Lactated IV 125 mls/hr ASDIRECTED IZZY Administration Lidocaine Confirm 11/07/18 15:07 Xylocaine-Mpf 2% Administered 11/07/18 15:08 Dose 5 ml .ROUTE .STK-MED ONE Midazolam HCl Confirm 11/07/18 15:08 Versed 1 Mg/Ml Administered 11/07/18 15:09 Dose 2 mg .ROUTE .STK-MED ONE Morphine Sulfate 2 mg 11/07/18 08:55 11/08/18 06:36 Morphine IVPUSH 2 mg Q2H PRN Administration Pain Morphine Sulfate 0 mg 11/07/18 16:09 Morphine IVPUSH Q1H PRN Pain (severe 7-10) Naloxone HCl 0.1 mg 11/07/18 16:05 Narcan IVPUSH ASDIRECTED PRN Respiratory Depression Ondansetron HCl 4 mg 11/07/18 06:35 Zofran Odt PO Q6H PRN nausea, able to take PO Oxycodone HCl 5 mg 11/06/18 22:13 11/07/18 23:06 Oxycodone PO 5 mg Q4H PRN Administration Pain (moderate 4-6) Propofol Confirm 11/07/18 15:08 Diprivan 20 Ml Administered 11/07/18 15:09 Dose 200 mg .ROUTE .STK-MED ONE Vancomycin HCl 1 dose 11/06/18 22:30 Pharmacy To Dose - Vancomycin .XX ASDIRECTED [facility] Departure - Departure Time of Disposition: 21:23 Disposition: Refer to Observation Clinical Impression: Cellulitis of groin, left - Discharge Information
[2018-11-06 21:30] LABS: CHLORIDE,CL 105 mmol/L (98-107); SODIUM,NA 140 mmol/L (136-148)
[2018-11-06] MEDS ORDERED: Acetaminophen 325 MG Tab PO PRN (22:14)
[2018-11-06] MEDS ORDERED: Sodium Chloride 0.9% 1,000 ML IV SCH (22:15)
[2018-11-07] MEDS: oxyCODONE 5 MG Tab PO PRN ×4 (00:03→23:06)
--- NOTE | 2018-11-07 00:14 | US ---
Indication: Left groin abscess Technique: Ultrasound left lower extremity nonvascular with color Doppler analysis Comparison: CT abdomen pelvis 07/07/2018 Findings/Impression: Small irregular fluid collection in the left groin measures 4.1 x 1.7 x 0.6 cm. This could represent a phlegmon or early abscess. There are 2 adjacent borderline prominent lymph nodes. No other abnormality. Dictated by Ghulam Paul MD @ Nov 07 2018 12:07AM Signed by Dr. Ghulam Paul @ Nov 07 2018 12:12AM
[2018-11-07] MEDS ORDERED: Vancomycin 1.5 GM in Sodium Chloride 0.9% 500 ML IV SCH (03:00)
[2018-11-07 06:17] LABS: CHLORIDE,CL 107 mmol/L (98-107); SODIUM,NA 142 mmol/L (136-148)
[2018-11-07] MEDS ORDERED: Ondansetron 4 MG Tab.DIS PO PRN (06:35)
[2018-11-07] MEDS: Enoxaparin 40 MG/0.4 ML Syringe SUBCUT SCH (07:54)
--- NOTE | 2018-11-07 08:16 | PCM.HP ---
<Skyler Pratt - Last Filed: 11/07/18 08:27> H&P History of Present Illness - General Date of Service: 11/07/18 Admit Problem/Dx: Admission Diagnosis/Problem Admission Diagnosis/Problem Cellulitis - History of Present Illness Initial Comments - Free Text/Narative: 33 y/o male presenting to the ER complaining of right groin pain. He states he has had similar episodes in the past. Pain and rash has been getting worse in the the past 5-6 days. No discharge. Rates pain 10/10 when moving around. No pain anywhere else on body. He was started on Vancomycin. He was recently seen in the ER on 11/04/18 and given antibiotics, however, he returns with increased pain and no improvement. U/S of right groin showed an abscess measuring approximately 4 cm x 1.7 cm. Denies any nausea, vomiting, chest pain, dyspnea, abdominal pain, dysuria, diarrhea. No other rashes on body. left groin Pain Score (Numeric/FACES): 10 - Related Data Allergies/Adverse Reactions: Allergies Allergy/AdvReac Type Severity Reaction Status Date / Time No Known Allergies Allergy Verified 11/07/18 01:00 Home Medications: Home Meds Clindamycin HCl [Cleocin HCl] 1 cap PO QID 11/06/18 [History] Sulfamethoxazole/Trimethoprim [Septra DS] 1 tab PO BID 11/06/18 [History] Past Medical History - Past Health History Medical/Surgical History: Denies Medical/Surgical History HEENT History: Reports: None Cardiovascular History: Reports: None Respiratory History: Reports: None Gastrointestinal History: Reports: None Genitourinary History: Reports: None Neurological History: Reports: None Psychiatric History: Reports: None Endocrine/Metabolic History: Reports: None Hematologic History: Reports: None Oncologic (Cancer) History: Reports: None Dermatologic History: Reports: None - Infectious Disease History Infectious Disease History: Reports: Chicken Pox - Past Surgical History Head Surgeries/Procedures: Reports: None Musculoskeletal Surgical History: Reports: Other (See Below) Other Musculoskeletal Surgeries/Procedures:: 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 Exam - Exam Exam: See Below - Vital Signs Vital Signs: Last Vital Signs Temp 36.9 C 11/07/18 08:00 Pulse 74 11/07/18 08:00 Resp 16 11/07/18 08:00 BP 129/77 11/07/18 08:00 Pulse Ox 95 11/07/18 03:44 Weight: 91.807 kg - Exam General: Alert, Oriented HEENT: Conjunctiva Clear Lungs: Clear to Auscultation, Normal Respiratory Effort Cardiovascular: Regular Rate, Regular Rhythm GI/Abdominal Exam: Normal Bowel Sounds, Soft, Non-Tender, No Distention Extremities: Normal Inspection, No Pedal Edema Skin: Other (area of cellulitis on left groin region with tender fluctuant area. ) - Patient Data Lab Results Last 24 hrs: Laboratory Results - last 24 hr 11/06/18 11/06/18 11/06/18 Range/Units 20:58 20:58 20:58 WBC 9.78 (4.0-11.0) K/uL RBC 4.74 (4.50-5.90) M/uL Hgb 14.2 (13.0-17.0) g/dL Hct 42.3 (38.0-50.0) % MCV 89.2 (80.0-98.0) fL MCH 30.0 (27.0-32.0) pg MCHC 33.6 (31.0-37.0) g/dL RDW Std Deviation 41.1 (28.0-62.0) fl RDW Coeff of Aruna 13 (11.0-15.0) % Plt Count 240 (150-400) K/uL MPV 10.50 (7.40-12.00) fL Neut % (Auto) 81.1 H (48.0-80.0) % Lymph % (Auto) 10.2 L (16.0-40.0) % Pratt % (Auto) 7.0 (0.0-15.0) % Eos % (Auto) 1.5 (0.0-7.0) % Baso % (Auto) 0.2 (0.0-1.5) % Neut # (Auto) 7.9 H (1.4-5.7) K/uL Lymph # (Auto) 1.0 (0.6-2.4) K/uL Pratt # (Auto) 0.7 (0.0-0.8) K/uL Eos # (Auto) 0.2 (0.0-0.7) K/uL Baso # (Auto) 0.0 (0.0-0.1) K/uL Nucleated RBC % 0.0 /100WBC Nucleated RBCs # 0 K/uL Lactate 0.9 (0.20-2.00) mmol/L Sodium 140 (136-148) mmol/L Potassium 4.2 (3.5-5.1) mmol/L Chloride 105 (98-107) mmol/L Carbon Dioxide 23.9 (21.0-32.0) mmol/L BUN 17 (7.0-18.0) mg/dL Creatinine 1.1 (0.8-1.3) mg/dL Est Cr Clr Drug Dosing TNP Estimated GFR (MDRD) > 60.0 ml/min Glucose 125 H (74-106) mg/dL Calcium 8.9 (8.5-10.1) mg/dL Total Bilirubin 0.3 (0.2-1.0) mg/dL AST 44 H (15-37) IU/L ALT 53 (14-63) IU/L Alkaline Phosphatase 80 (46-116) U/L Total Protein 7.3 (6.4-8.2) g/dL Albumin 3.8 (3.4-5.0) g/dL Globulin 3.5 (2.6-4.0) g/dL Albumin/Globulin Ratio 1.1 (0.9-1.6) 11/07/18 11/07/18 Range/Units 05:49 05:49 WBC 7.49 (4.0-11.0) K/uL RBC 4.38 L (4.50-5.90) M/uL Hgb 12.9 L (13.0-17.0) g/dL Hct 39.6 (38.0-50.0) % MCV 90.4 (80.0-98.0) fL MCH 29.5 (27.0-32.0) pg MCHC 32.6 (31.0-37.0) g/dL RDW Std Deviation 42.0 (28.0-62.0) fl RDW Coeff of Aruna 13 (11.0-15.0) % Plt Count 214 (150-400) K/uL MPV 10.30 (7.40-12.00) fL Neut % (Auto) 73.1 (48.0-80.0) % Lymph % (Auto) 16.3 (16.0-40.0) % Pratt % (Auto) 8.0 (0.0-15.0) % Eos % (Auto) 2.5 (0.0-7.0) % Baso % (Auto) 0.1 (0.0-1.5) % Neut # (Auto) 5.5 (1.4-5.7) K/uL Lymph # (Auto) 1.2 (0.6-2.4) K/uL Pratt # (Auto) 0.6 (0.0-0.8) K/uL Eos # (Auto) 0.2 (0.0-0.7) K/uL Baso # (Auto) 0.0 (0.0-0.1) K/uL Nucleated RBC % 0.0 /100WBC Nucleated RBCs # 0 K/uL Lactate (0.20-2.00) mmol/L Sodium 142 (136-148) mmol/L Potassium 4.1 (3.5-5.1) mmol/L Chloride 107 (98-107) mmol/L Carbon Dioxide 27.4 (21.0-32.0) mmol/L BUN 18 (7.0-18.0) mg/dL Creatinine 1.0 (0.8-1.3) mg/dL Est Cr Clr Drug Dosing 124.40 Estimated GFR (MDRD) > 60.0 ml/min Glucose 104 (74-106) mg/dL Calcium 8.2 L (8.5-10.1) mg/dL Total Bilirubin (0.2-1.0) mg/dL AST (15-37) IU/L ALT (14-63) IU/L Alkaline Phosphatase (46-116) U/L Total Protein (6.4-8.2) g/dL Albumin (3.4-5.0) g/dL Globulin (2.6-4.0) g/dL Albumin/Globulin Ratio (0.9-1.6) Result Diagrams: 11/07/18 05:49 11/07/18 05:49 Problem List Initiated/Reviewed/Updated: Yes Orders Last 24hrs: Active Orders 24 hr Category Date Time Status Admission Status [Patient Status] [ADT] Stat ADT 11/06/18 21:13 Active Oxygen Therapy [RC] PRN Care 11/07/18 06:35 Active Up ad Trudy [RC] ASDIRECTED Care 11/07/18 06:35 Active VTE/DVT Education [RC] PER UNIT ROUTINE Care 11/07/18 06:35 Active Vital Signs [RC] Q4H Care 11/07/18 06:35 Active Regular Diet [DIET] Diet 11/07/18 Breakfast Active BASIC METABOLIC PANEL,BMP [CHEM] AM Lab 11/08/18 05:11 Ordered CBC WITH AUTO DIFF [HEME] AM Lab 11/08/18 05:11 Ordered CULTURE BLOOD [BC] Stat Lab 11/06/18 20:58 Received CULTURE BLOOD [BC] Stat Lab 11/06/18 21:06 Received CULTURE MRSA [RM] Stat Lab 11/07/18 06:35 Ordered VANCOMYCIN TROUGH [CHEM] Timed Lab 11/08/18 10:30 Ordered Acetaminophen [Tylenol] Med 11/06/18 22:14 Active 650 mg PO Q6H PRN Enoxaparin [Lovenox] Med 11/07/18 06:45 Active 40 mg SUBCUT Q24H Ondansetron [Zofran ODT] Med 11/07/18 06:35 Active 4 mg PO Q6H PRN Pharmacy to Dose - Vancomycin Med 11/06/18 22:30 Active 1 dose .XX ASDIRECTED Sodium Chloride 0.9% [Normal Saline] 1,000 ml Med 11/06/18 22:15 Active IV ASDIRECTED Vancomycin 1.25 gm Med 11/07/18 11:00 Active Sodium Chloride 0.9% [Normal Saline] 250 ml IV Q8H oxyCODONE Med 11/06/18 22:13 Active 5 mg PO Q4H PRN Blood Culture x2 Reflex Set [OM.PC] Stat Oth 11/06/18 20:46 Ordered Resuscitation Status Routine Resus Stat 11/07/18 06:35 Ordered Medication Orders Acetaminophen (Tylenol) 650 mg PO Q6H PRN PRN Reason: Pain (mild 1-3) Enoxaparin Sodium (Lovenox) 40 mg SUBCUT Q24H [facility] Last Admin: 11/07/18 07:54 Dose: 40 mg Sodium Chloride (Normal Saline) 1,000 mls @ 75 mls/hr IV ASDIRECTED [facility] Last Admin: 11/07/18 00:03 Dose: 75 mls/hr Vancomycin HCl 1.25 gm/ Sodium (Chloride) 250 mls @ 166.667 mls/hr IV Q8H [facility] Ondansetron HCl (Zofran Odt) 4 mg PO Q6H PRN PRN Reason: nausea, able to take PO Oxycodone HCl (Oxycodone) 5 mg PO Q4H PRN PRN Reason: Pain (moderate 4-6) Last Admin: 11/07/18 04:22 Dose: 5 mg Admin: 11/07/18 00:03 Dose: 5 mg Vancomycin HCl (Pharmacy To Dose - Vancomycin) 1 dose .XX ASDIRECTED [facility] Assessment/Plan Comment:: A: 1. Left groin cellulitis with abscess P: 1. Left groin cellulitis with abscess- will consult general surgery for possible I&D. Continue vancomycin for now and pain control. Dispo:1-2 days <Mathew Wong - Last Filed: 11/07/18 10:07> H&P History of Present Illness - General Admit Problem/Dx: Admission Diagnosis/Problem Admission Diagnosis/Problem Cellulitis I have seen and examined to patient independently of medical oncologist, Skyler Alvarez MD. I have discussed the case for care of this patient with him. I have reviewed and approve of the plan of care as outlined by medical oncologist. Please see orders. Exam - Vital Signs Vital Signs: Last Vital Signs Temp 36.9 C 11/07/18 08:00 Pulse 74 11/07/18 08:00 Resp 16 11/07/18 08:00 BP 129/77 11/07/18 08:00 Pulse Ox 96 11/07/18 08:00 - Patient Data Lab Results Last 24 hrs: Laboratory Results - last 24 hr 11/06/18 11/06/18 11/06/18 Range/Units 20:58 20:58 20:58 WBC 9.78 (4.0-11.0) K/uL RBC 4.74 (4.50-5.90) M/uL Hgb 14.2 (13.0-17.0) g/dL Hct 42.3 (38.0-50.0) % MCV 89.2 (80.0-98.0) fL MCH 30.0 (27.0-32.0) pg MCHC 33.6 (31.0-37.0) g/dL RDW Std Deviation 41.1 (28.0-62.0) fl RDW Coeff of Aruna 13 (11.0-15.0) % Plt Count 240 (150-400) K/uL MPV 10.50 (7.40-12.00) fL Neut % (Auto) 81.1 H (48.0-80.0) % Lymph % (Auto) 10.2 L (16.0-40.0) % Pratt % (Auto) 7.0 (0.0-15.0) % Eos % (Auto) 1.5 (0.0-7.0) % Baso % (Auto) 0.2 (0.0-1.5) % Neut # (Auto) 7.9 H (1.4-5.7) K/uL Lymph # (Auto) 1.0 (0.6-2.4) K/uL Pratt # (Auto) 0.7 (0.0-0.8) K/uL Eos # (Auto) 0.2 (0.0-0.7) K/uL Baso # (Auto) 0.0 (0.0-0.1) K/uL Nucleated RBC % 0.0 /100WBC Nucleated RBCs # 0 K/uL Lactate 0.9 (0.20-2.00) mmol/L Sodium 140 (136-148) mmol/L Potassium 4.2 (3.5-5.1) mmol/L Chloride 105 (98-107) mmol/L Carbon Dioxide 23.9 (21.0-32.0) mmol/L BUN 17 (7.0-18.0) mg/dL Creatinine 1.1 (0.8-1.3) mg/dL Est Cr Clr Drug Dosing TNP Estimated GFR (MDRD) > 60.0 ml/min Glucose 125 H (74-106) mg/dL Calcium 8.9 (8.5-10.1) mg/dL Total Bilirubin 0.3 (0.2-1.0) mg/dL AST 44 H (15-37) IU/L ALT 53 (14-63) IU/L Alkaline Phosphatase 80 (46-116) U/L Total Protein 7.3 (6.4-8.2) g/dL Albumin 3.8 (3.4-5.0) g/dL Globulin 3.5 (2.6-4.0) g/dL Albumin/Globulin Ratio 1.1 (0.9-1.6) 11/07/18 11/07/18 Range/Units 05:49 05:49 WBC 7.49 (4.0-11.0) K/uL RBC 4.38 L (4.50-5.90) M/uL Hgb 12.9 L (13.0-17.0) g/dL Hct 39.6 (38.0-50.0) % MCV 90.4 (80.0-98.0) fL MCH 29.5 (27.0-32.0) pg MCHC 32.6 (31.0-37.0) g/dL RDW Std Deviation 42.0 (28.0-62.0) fl RDW Coeff of Aruna 13 (11.0-15.0) % Plt Count 214 (150-400) K/uL MPV 10.30 (7.40-12.00) fL Neut % (Auto) 73.1 (48.0-80.0) % Lymph % (Auto) 16.3 (16.0-40.0) % Pratt % (Auto) 8.0 (0.0-15.0) % Eos % (Auto) 2.5 (0.0-7.0) % Baso % (Auto) 0.1 (0.0-1.5) % Neut # (Auto) 5.5 (1.4-5.7) K/uL Lymph # (Auto) 1.2 (0.6-2.4) K/uL Pratt # (Auto) 0.6 (0.0-0.8) K/uL Eos # (Auto) 0.2 (0.0-0.7) K/uL Baso # (Auto) 0.0 (0.0-0.1) K/uL Nucleated RBC % 0.0 /100WBC Nucleated RBCs # 0 K/uL Lactate (0.20-2.00) mmol/L Sodium 142 (136-148) mmol/L Potassium 4.1 (3.5-5.1) mmol/L Chloride 107 (98-107) mmol/L Carbon Dioxide 27.4 (21.0-32.0) mmol/L BUN 18 (7.0-18.0) mg/dL Creatinine 1.0 (0.8-1.3) mg/dL Est Cr Clr Drug Dosing 124.40 Estimated GFR (MDRD) > 60.0 ml/min Glucose 104 (74-106) mg/dL Calcium 8.2 L (8.5-10.1) mg/dL Total Bilirubin (0.2-1.0) mg/dL AST (15-37) IU/L ALT (14-63) IU/L Alkaline Phosphatase (46-116) U/L Total Protein (6.4-8.2) g/dL Albumin (3.4-5.0) g/dL Globulin (2.6-4.0) g/dL Albumin/Globulin Ratio (0.9-1.6) Result Diagrams: 11/07/18 05:49 11/07/18 05:49 Orders Last 24hrs: Active Orders 24 hr Category Date Time Status Admission Status [Patient Status] [ADT] Stat ADT 11/06/18 21:13 Active Notify Provider Consults [RC] ASDIRECTED Care 11/07/18 08:33 Active Oxygen Therapy [RC] PRN Care 11/07/18 06:35 Active Up ad Trudy [RC] ASDIRECTED Care 11/07/18 06:35 Active VTE/DVT Education [RC] PER UNIT ROUTINE Care 11/07/18 06:35 Active Vital Signs [RC] Q4H Care 11/07/18 06:35 Active Consult to Physician [CONS] Routine Cons 11/07/18 08:32 Active Nothing per Oral Now Diet [DIET] Diet 11/07/18 Lunch Active Regular Diet [DIET] Diet 11/07/18 Breakfast Active BASIC METABOLIC PANEL,BMP [CHEM] AM Lab 11/08/18 05:11 Ordered CBC WITH AUTO DIFF [HEME] AM Lab 11/08/18 05:11 Ordered CULTURE BLOOD [BC] Stat Lab 11/06/18 20:58 Received CULTURE BLOOD [BC] Stat Lab 11/06/18 21:06 Received CULTURE MRSA [RM] Stat Lab 11/07/18 06:35 Ordered VANCOMYCIN TROUGH [CHEM] Timed Lab 11/08/18 10:30 Ordered Acetaminophen [Tylenol] Med 11/06/18 22:14 Active 650 mg PO Q6H PRN Enoxaparin [Lovenox] Med 11/07/18 06:45 Active 40 mg SUBCUT Q24H Morphine Med 11/07/18 08:55 Active 2 mg IVPUSH Q2H PRN Ondansetron [Zofran ODT] Med 11/07/18 06:35 Active 4 mg PO Q6H PRN Pharmacy to Dose - Vancomycin Med 11/06/18 22:30 Active 1 dose .XX ASDIRECTED Sodium Chloride 0.9% [Normal Saline] 1,000 ml Med 11/06/18 22:15 Active IV ASDIRECTED Vancomycin 1.25 gm Med 11/07/18 11:00 Active Sodium Chloride 0.9% [Normal Saline] 250 ml IV Q8H oxyCODONE Med 11/06/18 22:13 Active 5 mg PO Q4H PRN Blood Culture x2 Reflex Set [OM.PC] Stat Oth 11/06/18 20:46 Ordered Resuscitation Status Routine Resus Stat 11/07/18 06:35 Ordered Medication Orders Acetaminophen (Tylenol) 650 mg PO Q6H PRN PRN Reason: Pain (mild 1-3) Enoxaparin Sodium (Lovenox) 40 mg SUBCUT Q24H [facility] Last Admin: 11/07/18 07:54 Dose: 40 mg Sodium Chloride (Normal Saline) 1,000 mls @ 75 mls/hr IV ASDIRECTED [facility] Last Admin: 11/07/18 00:03 Dose: 75 mls/hr Vancomycin HCl 1.25 gm/ Sodium (Chloride) 250 mls @ 166.667 mls/hr IV Q8H [facility] Morphine Sulfate (Morphine) 2 mg IVPUSH Q2H PRN PRN Reason: Pain Ondansetron HCl (Zofran Odt) 4 mg PO Q6H PRN PRN Reason: nausea, able to take PO Oxycodone HCl (Oxycodone) 5 mg PO Q4H PRN PRN Reason: Pain (moderate 4-6) Last Admin: 11/07/18 08:45 Dose: 5 mg Admin: 11/07/18 04:22 Dose: 5 mg Admin: 11/07/18 00:03 Dose: 5 mg Vancomycin HCl (Pharmacy To Dose - Vancomycin) 1 dose .XX ASDIRECTED [facility]
--- NOTE | 2018-11-07 11:20 | PCM.PREANE ---
Preanesthetic Assessment - Anesthesia/Transfusion/Family Hx Anesthesia History: Prior Anesthesia Without Reaction Family History of Anesthesia Reaction: No Transfusion History: No Prior Transfusion(s) - Review of Systems Pulmonary: No Symptoms Cardiovascular: No Symptoms Gastrointestinal: No Symptoms Neurological: No Symptoms Other: Reports: None - Physical Assessment NPO Status Date: 11/06/18 O2 Sat by Pulse Oximetry: 95 Respiratory Rate: 16 Vital Signs: Last Vital Signs Temp 98.4 F 11/07/18 08:00 Pulse 74 11/07/18 08:00 Resp 16 11/07/18 08:00 BP 129/77 11/07/18 08:00 Pulse Ox 96 11/07/18 08:00 Height: 6 ft 3 in Weight: 204.7 kg ASA Class: 2 Mental Status: Alert & Oriented x3 Airway Class: Mallampati = 1 Dentition: Reports: Normal Dentition ROM/Head Extension: Full Lungs: Clear to Auscultation, Normal Respiratory Effort Cardiovascular: Regular Rate, Regular Rhythm - Lab Values: Laboratory Last Values WBC 7.49 K/uL (4.0-11.0) 11/07/18 05:49 RBC 4.38 M/uL (4.50-5.90) L 11/07/18 05:49 Hgb 12.9 g/dL (13.0-17.0) L 11/07/18 05:49 Hct 39.6 % (38.0-50.0) 11/07/18 05:49 MCV 90.4 fL (80.0-98.0) 11/07/18 05:49 MCH 29.5 pg (27.0-32.0) 11/07/18 05:49 MCHC 32.6 g/dL (31.0-37.0) 11/07/18 05:49 RDW Std Deviation 42.0 fl (28.0-62.0) 11/07/18 05:49 RDW Coeff of Aruna 13 % (11.0-15.0) 11/07/18 05:49 Plt Count 214 K/uL (150-400) 11/07/18 05:49 MPV 10.30 fL (7.40-12.00) 11/07/18 05:49 Neut % (Auto) 73.1 % (48.0-80.0) 11/07/18 05:49 Lymph % (Auto) 16.3 % (16.0-40.0) 11/07/18 05:49 [place] % (Auto) 8.0 % (0.0-15.0) 11/07/18 05:49 Eos % (Auto) 2.5 % (0.0-7.0) 11/07/18 05:49 Baso % (Auto) 0.1 % (0.0-1.5) 11/07/18 05:49 Neut # (Auto) 5.5 K/uL (1.4-5.7) 11/07/18 05:49 Lymph # (Auto) 1.2 K/uL (0.6-2.4) 11/07/18 05:49 [place] # (Auto) 0.6 K/uL (0.0-0.8) 11/07/18 05:49 Eos # (Auto) 0.2 K/uL (0.0-0.7) 11/07/18 05:49 Baso # (Auto) 0.0 K/uL (0.0-0.1) 11/07/18 05:49 Nucleated RBC % 0.0 /100WBC 11/07/18 05:49 Nucleated RBCs # 0 K/uL 11/07/18 05:49 Lactate 0.9 mmol/L (0.20-2.00) 11/06/18 20:58 Sodium 142 mmol/L (136-148) 11/07/18 05:49 Potassium 4.1 mmol/L (3.5-5.1) 11/07/18 05:49 Chloride 107 mmol/L (98-107) 11/07/18 05:49 Carbon Dioxide 27.4 mmol/L (21.0-32.0) 11/07/18 05:49 BUN 18 mg/dL (7.0-18.0) 11/07/18 05:49 Creatinine 1.0 mg/dL (0.8-1.3) 11/07/18 05:49 Est Cr Clr Drug Dosing 124.40 mL/min 11/07/18 05:49 Estimated GFR (MDRD) > 60.0 ml/min 11/07/18 05:49 Glucose 104 mg/dL (74-106) 11/07/18 05:49 Calcium 8.2 mg/dL (8.5-10.1) L 11/07/18 05:49 Total Bilirubin 0.3 mg/dL (0.2-1.0) 11/06/18 20:58 AST 44 IU/L (15-37) H 11/06/18 20:58 ALT 53 IU/L (14-63) 11/06/18 20:58 Alkaline Phosphatase 80 U/L (46-116) 11/06/18 20:58 Total Protein 7.3 g/dL (6.4-8.2) 11/06/18 20:58 Albumin 3.8 g/dL (3.4-5.0) 11/06/18 20:58 Globulin 3.5 g/dL (2.6-4.0) 11/06/18 20:58 Albumin/Globulin Ratio 1.1 (0.9-1.6) 11/06/18 20:58 - Allergies Allergies/Adverse Reactions: Allergies Allergy/AdvReac Type Severity Reaction Status Date / Time No Known Allergies Allergy Verified 11/07/18 01:00 - Blood Blood Available: No - Anesthesia Plan Pre-Op Medication Ordered: None - Acknowledgements Anesthesia Type Planned: General Anesthesia Pt an Appropriate Candidate for the Planned Anesthesia: Yes Alternatives and Risks of Anesthesia Discussed w Pt/Guardian: Yes Pt/Guardian Understands and Agrees with Anesthesia Plan: Yes Additional Comments: PLAN: ga/lma PreAnesthesia Questionnaire - Past Health History Medical/Surgical History: Denies Medical/Surgical History HEENT History: Reports: None Cardiovascular History: Reports: None Respiratory History: Reports: None Gastrointestinal History: Reports: None Genitourinary History: Reports: None Neurological History: Reports: None Psychiatric History: Reports: None Endocrine/Metabolic History: Reports: None Hematologic History: Reports: None Oncologic (Cancer) History: Reports: None Dermatologic History: Reports: None - Infectious Disease History Infectious Disease History: Reports: Chicken Pox - Past Surgical History Head Surgeries/Procedures: Reports: None Musculoskeletal Surgical History: Reports: Other (See Below) Other Musculoskeletal Surgeries/Procedures:: 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 - SUBSTANCE USE Smoking Status *Q: Former Smoker Second Hand Smoke Exposure: No Recreational Drug Use History: No - HOME MEDS Home Medications: Home Meds Clindamycin HCl [Cleocin HCl] 1 cap PO QID 11/06/18 [History] Sulfamethoxazole/Trimethoprim [Septra DS] 1 tab PO BID 11/06/18 [History] - CURRENT (IN HOUSE) MEDS Current Meds: Current Medications Acetaminophen (Tylenol) 650 mg PO Q6H PRN PRN Reason: Pain (mild 1-3) Enoxaparin Sodium (Lovenox) 40 mg SUBCUT Q24H [facility] Last Admin: 11/07/18 07:54 Dose: 40 mg Sodium Chloride (Normal Saline) 1,000 mls @ 75 mls/hr IV ASDIRECTED [facility] Last Admin: 11/07/18 00:03 Dose: 75 mls/hr Vancomycin HCl 1.25 gm/ Sodium (Chloride) 250 mls @ 166.667 mls/hr IV Q8H [facility] Last Admin: 11/07/18 11:10 Dose: 166.667 mls/hr Morphine Sulfate (Morphine) 2 mg IVPUSH Q2H PRN PRN Reason: Pain Ondansetron HCl (Zofran Odt) 4 mg PO Q6H PRN PRN Reason: nausea, able to take PO Oxycodone HCl (Oxycodone) 5 mg PO Q4H PRN PRN Reason: Pain (moderate 4-6) Last Admin: 11/07/18 08:45 Dose: 5 mg Vancomycin HCl (Pharmacy To Dose - Vancomycin) 1 dose .XX ASDIRECTED [facility] Discontinued Medications Sodium Chloride (Normal Saline) 1,000 mls @ 999 mls/hr IV STAT ONE Stop: 11/06/18 21:45 Last Admin: 11/06/18 21:29 Dose: 999 mls/hr Vancomycin HCl 1 gm/ Sodium (Chloride) 250 mls @ 250 mls/hr IV ONETIME ONE Stop: 11/06/18 21:44 Last Admin: 11/06/18 22:32 Dose: 250 mls/hr Vancomycin HCl 1.5 gm/ Sodium (Chloride) 500 mls @ 333.333 mls/hr IV Q8H [facility] Last Admin: 11/07/18 03:45 Dose: 333.333 mls/hr
--- NOTE | 2018-11-07 11:25 | PCM.CONS ---
H&P History of Present Illness - General Date of Service: 11/07/18 Admit Problem/Dx: Admission Diagnosis/Problem Admission Diagnosis/Problem Cellulitis I have seen and examined to patient independently of medical insurance clerk, Skyler Alvarez MD. I have discussed the case for care of this patient with him. I have reviewed and approve of the plan of care as outlined by medical insurance clerk. Please see orders. Left groin abscess Source of Information: Patient History Limitations: Reports: No Limitations - History of Present Illness Initial Comments - Free Text/Narative: Patient is a 33-year-old gentleman with a 6 day history of persistent cellulitis in the left groin. This has now developed into an abscess as documented by ultrasound. Patient will require formal surgical incision and drainage. Symptom Onset Date: 11/01/18 Duration of Symptoms: Reports: Day(s):, Getting Worse Location: Reports: Pelvis Quality: Reports: Pressure Severity: Moderate Improves with: Reports: Rest Worsens with: Reports: Movement Associated Symptoms: Reports: No Other Symptoms left groin Pain Score (Numeric/FACES): 10 - Related Data Allergies/Adverse Reactions: Allergies Allergy/AdvReac Type Severity Reaction Status Date / Time No Known Allergies Allergy Verified 11/07/18 01:00 Home Medications: Home Meds Clindamycin HCl [Cleocin HCl] 1 cap PO QID 11/06/18 [History] Sulfamethoxazole/Trimethoprim [Septra DS] 1 tab PO BID 11/06/18 [History] Past Medical History - Past Health History Medical/Surgical History: Denies Medical/Surgical History HEENT History: Reports: None Cardiovascular History: Reports: None Respiratory History: Reports: None Gastrointestinal History: Reports: None Genitourinary History: Reports: None Neurological History: Reports: None Psychiatric History: Reports: None Endocrine/Metabolic History: Reports: None Hematologic History: Reports: None Oncologic (Cancer) History: Reports: None Dermatologic History: Reports: None - Infectious Disease History Infectious Disease History: Reports: Chicken Pox - Past Surgical History Head Surgeries/Procedures: Reports: None Musculoskeletal Surgical History: Reports: Other (See Below) Other Musculoskeletal Surgeries/Procedures:: 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 Social & Family History - Family History Family Medical History: Noncontributory - Tobacco Use Smoking Status *Q: Former Smoker Used Tobacco, but Quit: Yes Month/Year Tobacco Last Used: 2014 Second Hand Smoke Exposure: No - Caffeine Use Caffeine Use: Reports: Coffee - Recreational Drug Use Recreational Drug Use: No H&P Review of Systems - Review of Systems: Review Of Systems: See Below General: Reports: Malaise. Denies: Fever, Chills, Weakness, Fatigue HEENT: Reports: No Symptoms Pulmonary: Denies: Shortness of Breath, Wheezing Cardiovascular: Reports: No Symptoms Gastrointestinal: Reports: No Symptoms Genitourinary: Reports: No Symptoms Musculoskeletal: Reports: No Symptoms Skin: Reports: Other (Left groin/inguinal abscess) Psychiatric: Reports: No Symptoms Neurological: Reports: No Symptoms Exam - Exam Exam: See Below - Vital Signs Vital Signs: Last Vital Signs Temp 98.4 F 11/07/18 08:00 Pulse 74 11/07/18 08:00 Resp 16 11/07/18 08:00 BP 129/77 11/07/18 08:00 Pulse Ox 96 11/07/18 08:00 Weight: 451 lb 4.58 oz - Exam General: Alert, Oriented, Cooperative, Mild Distress HEENT: Conjunctiva Clear, EACs Clear, Pupils Equal, Pupils Reactive. No: Scleral Icterus Neck: Supple Lungs: Clear to Auscultation, Normal Respiratory Effort Cardiovascular: Regular Rate, Regular Rhythm. No: Tachycardia GI/Abdominal Exam: Normal Bowel Sounds, Soft, Non-Tender (Male) Exam: Other (Left groin abscess) Rectal (Males) Exam: Deferred Back Exam: Normal Inspection Extremities: Normal Inspection Peripheral Pulses: 4+: Posterior Tibial (L), Posterior Tibial (R), Dorsalis Pedis (L), Dorsalis Pedis (R) Skin: Warm, Dry, Intact Neurological: Cranial Nerves Intact, Reflexes Equal Bilateral Neuro Extensive - Mental Status: Alert, Oriented x3, Normal Mood/Affect, Normal Cognition Psychiatric: Alert, Normal Affect, Normal Mood - Patient Data Lab Results Last 24 hrs: Laboratory Results - last 24 hr 11/06/18 11/06/18 11/06/18 Range/Units 20:58 20:58 20:58 WBC 9.78 (4.0-11.0) K/uL RBC 4.74 (4.50-5.90) M/uL Hgb 14.2 (13.0-17.0) g/dL Hct 42.3 (38.0-50.0) % MCV 89.2 (80.0-98.0) fL MCH 30.0 (27.0-32.0) pg MCHC 33.6 (31.0-37.0) g/dL RDW Std Deviation 41.1 (28.0-62.0) fl RDW Coeff of Aruna 13 (11.0-15.0) % Plt Count 240 (150-400) K/uL MPV 10.50 (7.40-12.00) fL Neut % (Auto) 81.1 H (48.0-80.0) % Lymph % (Auto) 10.2 L (16.0-40.0) % [place] % (Auto) 7.0 (0.0-15.0) % Eos % (Auto) 1.5 (0.0-7.0) % Baso % (Auto) 0.2 (0.0-1.5) % Neut # (Auto) 7.9 H (1.4-5.7) K/uL Lymph # (Auto) 1.0 (0.6-2.4) K/uL [place] # (Auto) 0.7 (0.0-0.8) K/uL Eos # (Auto) 0.2 (0.0-0.7) K/uL Baso # (Auto) 0.0 (0.0-0.1) K/uL Nucleated RBC % 0.0 /100WBC Nucleated RBCs # 0 K/uL Lactate 0.9 (0.20-2.00) mmol/L Sodium 140 (136-148) mmol/L Potassium 4.2 (3.5-5.1) mmol/L Chloride 105 (98-107) mmol/L Carbon Dioxide 23.9 (21.0-32.0) mmol/L BUN 17 (7.0-18.0) mg/dL Creatinine 1.1 (0.8-1.3) mg/dL Est Cr Clr Drug Dosing TNP Estimated GFR (MDRD) > 60.0 ml/min Glucose 125 H (74-106) mg/dL Calcium 8.9 (8.5-10.1) mg/dL Total Bilirubin 0.3 (0.2-1.0) mg/dL AST 44 H (15-37) IU/L ALT 53 (14-63) IU/L Alkaline Phosphatase 80 (46-116) U/L Total Protein 7.3 (6.4-8.2) g/dL Albumin 3.8 (3.4-5.0) g/dL Globulin 3.5 (2.6-4.0) g/dL Albumin/Globulin Ratio 1.1 (0.9-1.6) 11/07/18 11/07/18 Range/Units 05:49 05:49 WBC 7.49 (4.0-11.0) K/uL RBC 4.38 L (4.50-5.90) M/uL Hgb 12.9 L (13.0-17.0) g/dL Hct 39.6 (38.0-50.0) % MCV 90.4 (80.0-98.0) fL MCH 29.5 (27.0-32.0) pg MCHC 32.6 (31.0-37.0) g/dL RDW Std Deviation 42.0 (28.0-62.0) fl RDW Coeff of Aruna 13 (11.0-15.0) % Plt Count 214 (150-400) K/uL MPV 10.30 (7.40-12.00) fL Neut % (Auto) 73.1 (48.0-80.0) % Lymph % (Auto) 16.3 (16.0-40.0) % [place] % (Auto) 8.0 (0.0-15.0) % Eos % (Auto) 2.5 (0.0-7.0) % Baso % (Auto) 0.1 (0.0-1.5) % Neut # (Auto) 5.5 (1.4-5.7) K/uL Lymph # (Auto) 1.2 (0.6-2.4) K/uL [place] # (Auto) 0.6 (0.0-0.8) K/uL Eos # (Auto) 0.2 (0.0-0.7) K/uL Baso # (Auto) 0.0 (0.0-0.1) K/uL Nucleated RBC % 0.0 /100WBC Nucleated RBCs # 0 K/uL Lactate (0.20-2.00) mmol/L Sodium 142 (136-148) mmol/L Potassium 4.1 (3.5-5.1) mmol/L Chloride 107 (98-107) mmol/L Carbon Dioxide 27.4 (21.0-32.0) mmol/L BUN 18 (7.0-18.0) mg/dL Creatinine 1.0 (0.8-1.3) mg/dL Est Cr Clr Drug Dosing 124.40 Estimated GFR (MDRD) > 60.0 ml/min Glucose 104 (74-106) mg/dL Calcium 8.2 L (8.5-10.1) mg/dL Total Bilirubin (0.2-1.0) mg/dL AST (15-37) IU/L ALT (14-63) IU/L Alkaline Phosphatase (46-116) U/L Total Protein (6.4-8.2) g/dL Albumin (3.4-5.0) g/dL Globulin (2.6-4.0) g/dL Albumin/Globulin Ratio (0.9-1.6) Result Diagrams: 11/07/18 05:49 11/07/18 05:49 Consult PN Assessment/Plan Procedures: Procedures ASSAY OF LACTIC ACID (03/28/18) BLOOD CULTURE FOR BACTERIA (03/28/18) CHEST X-RAY 2VW FRONTAL&LATL (12/24/16) COMPLETE CBC W/AUTO DIFF WBC (03/28/18) COMPREHEN METABOLIC PANEL (03/28/18) CT MAXILLOFACIAL W/O DYE (12/24/16) CULTURE AEROBIC IDENTIFY (03/28/18) CULTURE OTHR SPECIMN AEROBIC (03/28/18) DRAINAGE OF SKIN ABSCESS (08/29/18) DRUG SCRN GOLDIE LEVETIRACETAM (03/28/18) EMERGENCY DEPT VISIT (08/29/18) EMERGENCY DEPT VISIT (03/28/18) EMERGENCY DEPT VISIT (12/24/16) EMERGENCY DEPT VISIT (12/06/16) EMERGENCY DEPT VISIT (08/24/16) HYDRATE IV INFUSION ADD-ON (03/28/18) MICROBE SUSCEPTIBLE CONRAD (03/28/18) ROUTINE VENIPUNCTURE (03/28/18) RPR F/E/E/N/L/M 2.5 CM/< (12/24/16) THER/PROPH/DIAG INJ IV PUSH (03/28/18) THER/PROPH/DIAG INJ SC/IM (12/24/16) URINALYSIS AUTO W/SCOPE (03/28/18) URINE CULTURE/COLONY COUNT (03/28/18) X-RAY EXAM OF LOWER LEG (08/24/16) (1) Abscess SNOMED Code(s): 733313823 Code(s): L02.91 - CUTANEOUS ABSCESS, UNSPECIFIED Priority: High Current Visit: Yes Problem List Initiated/Reviewed/Updated: Yes Plan: Incision and drainage left groin abscess. The operative procedure, along with the risks including but not limited to bleeding, infection, recurrence of the abscess, reaction to anesthesia, pneumonia, deep venous thrombosis, pulmonary emboli, myocardial infarction a been reviewed with the patient. He states he understands. His questions have been answered. He does wish to proceed.
[2018-11-07] MEDS: Morphine 2 MG/ML Syringe IVPUSH PRN ×3 (14:13→20:37)
[2018-11-07] MEDS ORDERED: Bupivacaine 0.5% 10 ML SDV ONE (14:51)
[2018-11-07] MEDS ORDERED: ceFAZolin 1 GM Vial ONE (14:51)
[2018-11-07] MEDS ORDERED: Lidocaine 2% 5 ML SDV ONE (15:07)
[2018-11-07] MEDS ORDERED: Midazolam 1 MG/ML 2 ML SDV ONE (15:08)
[2018-11-07] MEDS ORDERED: Propofol 200 MG/20 ML SDV ONE (15:08)
[2018-11-07] MEDS ORDERED: fentaNYL 100 MCG/2 ML SDV ONE ×2 (15:08→16:20)
[2018-11-07] MEDS ORDERED: Atropine 0.1 MG/ML 10 ML Syringe IVPUSH PRN ×2 (16:05)
[2018-11-07] MEDS ORDERED: 50% Dextrose in Water 50 ML Syringe IVPUSH PRN (16:05)
[2018-11-07] MEDS ORDERED: fentaNYL 100 MCG/2 ML SDV IVPUSH PRN (16:05)
[2018-11-07] MEDS ORDERED: Naloxone 0.4 MG/ML Syringe IVPUSH PRN (16:05)
[2018-11-07] MEDS ORDERED: Albuterol 0.083% 2.5 MG/3 ML Neb Soln NEB PRN (16:05)
[2018-11-07] MEDS ORDERED: EPINEPHrine 1:10,000 1 MG/10 ML Syringe IVPUSH PRN (16:05)
[2018-11-07] MEDS ORDERED: Morphine 10 MG/ML Syringe IVPUSH PRN (16:09)
[2018-11-07] MEDS ORDERED: Acetaminophen 325 MG Tab PO PRN (16:09)
--- NOTE | 2018-11-07 16:11 | PCM.OPNOTE ---
- General Post-Op/Procedure Note Date of Surgery/Procedure: 11/07/18 Operative Procedure(s): I & D left groin abscess Pre Op Diagnosis: Left groin abscess Anesthesia Technique: General LMA Primary Surgeon: Catalino Cortés Fluid Replacement, Intraop: 350 EBL in mLs: 5 Condition: Fair Free Text/Narrative:: Intake & Output 11/07/18 11/07/18 11/07/18 03:59 11:59 19:59 Intake Total 1652 250 Output Total 700 Balance 952 250 DICTATION 465806 CPT CODE 44371
--- NOTE | 2018-11-07 16:37 | PCM.POSTAN ---
POST ANESTHESIA ASSESSMENT - MENTAL STATUS Mental Status: Alert, Oriented - VITAL SIGNS Pulse Rate: 80 SaO2: 98 Resp Rate: 12 - RESPIRATORY Respiratory Status: Respiratory Rate WNL, Airway Patent, O2 Saturation Stable - CARDIOVASCULAR CV Status: Pulse Rate WNL, Blood Pressure Stable - GASTROINTESTINAL GI Status: No Symptoms - PAIN Pain Score: 2 - POST OP HYDRATION Hydration Status: Adequate & Stable
--- NOTE | 2018-11-07 16:40 | OR ---
SURGEON: Catalino Cortés M.D. DATE OF PROCEDURE: 11/07/2018 OPERATION PERFORMED: Incision and drainage of left groin abscess. PRIMARY SURGEON: Catalino Cortés M.D. ANESTHESIA: General LMA. ASA CLASSIFICATION: II. PREOPERATIVE DIAGNOSIS: Left groin abscess. POSTOPERATIVE DIAGNOSIS: Left groin abscess. ESTIMATED BLOOD LOSS: 5 mL. INTRAOPERATIVE FLUID REPLACEMENT: 350 mL of crystalloid. DESCRIPTION OF PROCEDURE: The patient was taken to the operating room and placed on the operating table in the supine position. Time-out was called for appropriate identification of patient and procedure. Following satisfactory attainment of general anesthesia with placement of an LMA, the left groin was prepped with Betadine solution and sterile drapes were applied. The skin directly overlying the abscess was incised. A small amount of purulent material was present. Aerobic and anaerobic cultures were obtained and sent for culture, sensitivity, and Gram stain. The wound was copiously irrigated with several 100 mL of 1% Ancef solution. All fluid was aspirated. Bleeding sites were electrocoagulated. The wound was further inspected and no other bleeding was noted. All loculations were broken up and there did not appear to be any deep abscesses. A large Meggan drain was brought to the operating table and 2 separate Meggan drains were placed into the wound and secured with 2-0 nylon sutures. The wound was then dressed with 4x4s and an ABD held in place with mesh panties. Following emergence from anesthesia and extubation, the patient was taken to recovery room in stable condition. ROBEL / JAZMYN /[id number]
[2018-11-07] MEDS: Lactated Ringers 1,000 ML IV SCH ×2 (17:03→18:32)
--- NOTE | 2018-11-07 17:35 | PCM48HPAN ---
Post Anesthesia Note - EVALUATION WITHIN 48HRS OF ANESTHETIC Vital Signs in Normal Range: Yes Patient Participated in Evaluation: Yes Respiratory Function Stable: Yes Airway Patent: Yes Cardiovascular Function Stable: Yes Hydration Status Stable: Yes Pain Control Satisfactory: Yes Nausea and Vomiting Control Satisfactory: Yes Mental Status Recovered: Yes Pulse Rate: 80 SaO2: 96 Resp Rate: 16
[2018-11-08] MEDS: Lactated Ringers 1,000 ML IV SCH (03:52)
[2018-11-08] MEDS: Morphine 2 MG/ML Syringe IVPUSH PRN ×2 (04:01→06:36)
[2018-11-08 05:38] LABS: CHLORIDE,CL 106 mmol/L (98-107); SODIUM,NA 141 mmol/L (136-148)
[2018-11-08] MEDS: Enoxaparin 40 MG/0.4 ML Syringe SUBCUT SCH (06:32)
[2018-11-08] MEDS: Acetaminophen/HYDROcodone 325-5 MG Tab PO PRN ×2 (06:43→11:33)
--- NOTE | 2018-11-08 09:27 | PCM.SN ---
- Free Text/Narrative Note: Patient seen and examined. Patient is much more comfortable. Erythema is resolving. Still has a small amount of drainage. RECOMMEND: Patient may shower. If patient is discharge, I would like to see him on 11/10 to remove the Meggan drains.
[2018-11-08 09:35] VITALS: BP 130/77
--- NOTE | 2018-11-08 09:40 | PCM.DCSUM1 ---
Discharge Summary - Hospital Course Free Text/Narrative:: 33 y/o male admitted for left groin cellulitis with abscess. He was started on Vancomycin which helped improve his WBC. No fevers. General surgery was consulted and patient underwent I&D with drain placement. His cellulitis was regressing at time of discharge. He was prescribed Bactrim for 10 days. He needs to follow-up with Dr. Cortés on , 11/10/18 for drain removal. - Discharge Data Discharge Date: 11/08/18 Discharge Disposition: Home, Self-Care 01 Condition: Good - Patient Summary/Data Operative Procedure(s) Performed: I & D left groin abscess Consults: Consultations 11/07/18 08:32 Consult to Physician [CONS] Routine - Patient Instructions Diet: Regular Diet as Tolerated Notify Provider of: Fever, Increased Pain, Swelling and Redness, Drainage, Nausea and/or Vomiting - Discharge Plan *PRESCRIPTION DRUG MONITORING PROGRAM REVIEWED*: Not Applicable *COPY OF PRESCRIPTION DRUG MONITORING REPORT IN PATIENT AMEE: Not Applicable Prescriptions/Med Rec: Sulfamethoxazole/Trimethoprim [Bactrim Ds Tablet] 1 each PO BID 10 Days #20 tablet Home Medications: Home Meds Sulfamethoxazole/Trimethoprim [Bactrim Ds Tablet] 1 each PO BID 10 Days #20 tablet 11/08/18 [Rx] Patient Handouts: Cellulitis, Adult, [id number], Incision and Drainage, Care After Referrals: Catalino Cortés MD [Physician] - 11/10/18 8:45 am - Discharge Summary/Plan Comment DC Time >30 min.: No - Patient Data Vitals - Most Recent: Last Vital Signs Temp 36.7 C 11/08/18 08:00 Pulse 73 11/08/18 08:00 Resp 18 11/08/18 08:00 BP 130/77 11/08/18 08:00 Pulse Ox 95 11/08/18 08:00 Weight - Most Recent: 92.85 kg I&O - Last 24 hours: Intake & Output 11/07/18 11/08/18 11/08/18 22:59 06:59 14:59 Intake Total 2325 940 Output Total 1675 1900 Balance 650 -960 Lab Results - Last 24 hrs: Laboratory Results - last 24 hr 11/08/18 11/08/18 Range/Units 05:01 05:05 WBC 6.98 (4.0-11.0) K/uL RBC 4.33 L (4.50-5.90) M/uL Hgb 12.8 L (13.0-17.0) g/dL Hct 38.7 (38.0-50.0) % MCV 89.4 (80.0-98.0) fL MCH 29.6 (27.0-32.0) pg MCHC 33.1 (31.0-37.0) g/dL RDW Std Deviation 40.6 (28.0-62.0) fl RDW Coeff of Aruna 13 (11.0-15.0) % Plt Count 231 (150-400) K/uL MPV 10.20 (7.40-12.00) fL Nucleated RBC % 0.0 /100WBC Nucleated RBCs # 0 K/uL Sodium 141 (136-148) mmol/L Potassium 4.1 (3.5-5.1) mmol/L Chloride 106 (98-107) mmol/L Carbon Dioxide 27.8 (21.0-32.0) mmol/L BUN 14 (7.0-18.0) mg/dL Creatinine 0.9 (0.8-1.3) mg/dL Est Cr Clr Drug Dosing 138.23 mL/min Estimated GFR (MDRD) > 60.0 ml/min Glucose 98 (74-106) mg/dL Calcium 8.7 (8.5-10.1) mg/dL CONRAD Results - Last 24 hrs: Microbiology 11/06/18 21:06 Aerobic Blood Culture - Preliminary Blood - Venous - Lab Draw NO GROWTH AFTER 1 DAY Anaerobic Blood Culture - Preliminary NO GROWTH AFTER 1 DAY 11/06/18 20:58 Aerobic Blood Culture - Preliminary Blood - Venous NO GROWTH AFTER 1 DAY Anaerobic Blood Culture - Preliminary NO GROWTH AFTER 1 DAY 11/07/18 15:43 Gram Stain - Preliminary Groin, Left Med Orders - Current: Current Medications Acetaminophen (Tylenol) 650 mg PO Q6H PRN PRN Reason: Pain (mild 1-3) Last Admin: 11/08/18 08:52 Dose: 650 mg Acetaminophen (Tylenol) 325 mg PO Q4H PRN PRN Reason: Fever Greater Than 101 Hydrocodone Bitart/Acetaminophen ([place] 325-5 Mg) 1 - 2 tab PO Q4H PRN PRN Reason: Pain (moderate 4-6) Last Admin: 11/08/18 06:43 Dose: 1 tab Enoxaparin Sodium (Lovenox) 40 mg SUBCUT Q24H [facility] Last Admin: 11/08/18 06:32 Dose: 40 mg Sodium Chloride (Normal Saline) 1,000 mls @ 75 mls/hr IV ASDIRECTED [facility] Last Admin: 11/07/18 00:03 Dose: 75 mls/hr Vancomycin HCl 1.25 gm/ Sodium (Chloride) 250 mls @ 166.667 mls/hr IV Q8H [facility] Last Admin: 11/08/18 03:51 Dose: 166.667 mls/hr Lactated Ringer's (Ringers, Lactated) 1,000 mls @ 125 mls/hr IV ASDIRECTED [facility] Last Admin: 11/08/18 03:52 Dose: 125 mls/hr Morphine Sulfate (Morphine) 2 mg IVPUSH Q2H PRN PRN Reason: Pain Last Admin: 11/08/18 06:36 Dose: 2 mg Morphine Sulfate (Morphine) 0 mg IVPUSH Q1H PRN PRN Reason: Pain (severe 7-10) Ondansetron HCl (Zofran Odt) 4 mg PO Q6H PRN PRN Reason: nausea, able to take PO Oxycodone HCl (Oxycodone) 5 mg PO Q4H PRN PRN Reason: Pain (moderate 4-6) Last Admin: 11/07/18 23:06 Dose: 5 mg Vancomycin HCl (Pharmacy To Dose - Vancomycin) 1 dose .XX ASDIRECTED [facility] Discontinued Medications Albuterol (Proventil Neb Soln) 2.5 mg NEB ONETIME PRN PRN Reason: Wheezing Atropine Sulfate (Atropine 0.1 Mg/Ml) 0.5 mg IVPUSH ASDIRECTED PRN PRN Reason: Hypo-perfusion Atropine Sulfate (Atropine 0.1 Mg/Ml) 1 mg IVPUSH ASDIRECTED PRN PRN Reason: Hypo-Perfusion Bupivacaine HCl (Sensorcaine-Mpf 0.5%) Confirm Administered Dose 10 ml .ROUTE .STK-MED ONE Stop: 11/07/18 14:52 Cefazolin Sodium (Ancef) Confirm Administered Dose 1 gm .ROUTE .STK-MED ONE Stop: 11/07/18 14:52 Dextrose/Water (Dextrose 50% In Water) 50 ml IVPUSH ASDIRECTED PRN PRN Reason: Hypoglycemia Epinephrine HCl (Epinephrine 1:10,000) 1 mg IVPUSH ASDIRECTED PRN PRN Reason: ACLS Guidelines Fentanyl (Sublimaze) Confirm Administered Dose 100 mcg .ROUTE .STK-MED ONE Stop: 11/07/18 15:09 Fentanyl (Sublimaze) 50 mcg IVPUSH Q5M PRN PRN Reason: Pain Last Admin: 11/07/18 16:22 Dose: 50 mcg Fentanyl (Sublimaze) Confirm Administered Dose 100 mcg .ROUTE .STK-MED ONE Stop: 11/07/18 16:21 Last Admin: 11/07/18 16:30 Dose: 50 mcg Sodium Chloride (Normal Saline) 1,000 mls @ 999 mls/hr IV STAT ONE Stop: 11/06/18 21:45 Last Admin: 11/06/18 21:29 Dose: 999 mls/hr Vancomycin HCl 1 gm/ Sodium (Chloride) 250 mls @ 250 mls/hr IV ONETIME ONE Stop: 11/06/18 21:44 Last Admin: 11/06/18 22:32 Dose: 250 mls/hr Vancomycin HCl 1.5 gm/ Sodium (Chloride) 500 mls @ 333.333 mls/hr IV Q8H [facility] Last Admin: 11/07/18 03:45 Dose: 333.333 mls/hr Lidocaine (Xylocaine-Mpf 2%) Confirm Administered Dose 5 ml .ROUTE .STK-MED ONE Stop: 11/07/18 15:08 Midazolam HCl (Versed 1 Mg/Ml) Confirm Administered Dose 2 mg .ROUTE .STK-MED ONE Stop: 11/07/18 15:09 Naloxone HCl (Narcan) 0.1 mg IVPUSH ASDIRECTED PRN PRN Reason: Respiratory Depression Propofol (Diprivan 20 Ml) Confirm Administered Dose 200 mg .ROUTE .STK-MED ONE Stop: 11/07/18 15:09
== END 2018-11-08 11:45 | disposition home or self-care (01) ==
LOC: MW.ED 20:37 → MW.MS 21:13
PROVIDERS: ADMIT Internal Medicine; ATTEND Internal Medicine
DX: L02.214 Cutaneous abscess of groin (principal); L03.314 Cellulitis of groin; Z87.891 Personal history of nicotine dependence
CPT/HCPCS: 10060; 36415; 76881; 80048; 80053; 80202; 83605; 85025; 85027; 87040; 87070; 87075; 87077; 87186; 87205; 96361; 96365; 96366; 96372; 96375; 96376; 99284; A9270; G0378; J0690; J1650; J2001; J2250; J2270; J2704; J3010; J3370; J7040; J7050; J7120; 00400; J3490

== ENCOUNTER 2018-12-16 14:12 | Observation (INO) | payer BC ==
[2018-12-16] MEDS ORDERED: Ondansetron 4 MG Tab.DIS PO PRN (15:21)
[2018-12-16] MEDS ORDERED: Acetaminophen/HYDROcodone 325-5 MG Tab PO PRN (15:21)
[2018-12-16] MEDS ORDERED: Enoxaparin 40 MG/0.4 ML Syringe SUBCUT SCH (15:30)
--- NOTE | 2018-12-16 16:00 | PCM.HP ---
Addendum entered and electronically signed by Ezekiel Munguia MD 12/16/18 19: 07: Case precepted with Dr. Hoffman. Original Note: H&P History of Present Illness - General Date of Service: 12/16/18 Admit Problem/Dx: Admission Diagnosis/Problem Admission Diagnosis/Problem Cellulitis - History of Present Illness Initial Comments - Free Text/Narative: Patient is a 33-year-old male who is a direct admit from [facility] residency clinic after presenting with right hand swelling and pain for the past 4 days. The dorsal aspect of patient's right hand has become increasingly swollen, red and painful after starting off as a scrape. Patient also notes that he got bit by a mosquito on his right elbow which has now also become more red and swollen over the past few days. Patient tried taking some left over Bactrim tablets that he had from recent hospitalization 1.5 months ago for groin abscess drainage. Patient has history of skin abscesses and MRSA cellulitis. He also reports having subjective fevers, chills, sweats and muscle aches. Right Arm Pain Score (Numeric/FACES): 1 - Related Data Allergies/Adverse Reactions: Allergies Allergy/AdvReac Type Severity Reaction Status Date / Time No Known Allergies Allergy Verified 12/16/18 15:45 Home Medications: Home Meds Sulfamethoxazole/Trimethoprim [Bactrim Ds Tablet] 1 each PO BID 10 Days #20 tablet 11/08/18 [Rx] Past Medical History - Past Health History Medical/Surgical History: Denies Medical/Surgical History HEENT History: Reports: None Cardiovascular History: Reports: None Respiratory History: Reports: None Gastrointestinal History: Reports: None Genitourinary History: Reports: None Neurological History: Reports: None Psychiatric History: Reports: None Endocrine/Metabolic History: Reports: None Hematologic History: Reports: None Oncologic (Cancer) History: Reports: None Dermatologic History: Reports: None - Infectious Disease History Infectious Disease History: Reports: Chicken Pox - Past Surgical History Head Surgeries/Procedures: Reports: None Musculoskeletal Surgical History: Reports: Other (See Below) Other Musculoskeletal Surgeries/Procedures:: 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 Social & Family History - Family History Family Medical History: Noncontributory - Tobacco Use Smoking Status *Q: Former Smoker Packs/Tins Daily: 1 Used Tobacco, but Quit: No Month/Year Tobacco Last Used: 2010 Second Hand Smoke Exposure: No - Caffeine Use Caffeine Use: Reports: Coffee - Recreational Drug Use Recreational Drug Use: No H&P Review of Systems - Review of Systems: Review Of Systems: ROS reveals no pertinent complaints other than HPI. Exam - Exam Exam: See Below - Vital Signs Vital Signs: Last Vital Signs Temp 97.8 F 12/16/18 15:21 Pulse 71 12/16/18 15:21 Resp 16 12/16/18 15:21 BP 116/84 12/16/18 15:21 Pulse Ox 96 12/16/18 15:21 Weight: 193 lb 8 oz - Exam General: Alert, Oriented, Cooperative HEENT: Conjunctiva Clear, EOMI, Pupils Equal Neck: Supple, Trachea Midline. No: Lymphadenopathy Lungs: Clear to Auscultation, Normal Respiratory Effort Cardiovascular: Regular Rate, Regular Rhythm GI/Abdominal Exam: Normal Bowel Sounds, Soft, Non-Tender, No Distention Extremities: Normal Capillary Refill. No: No Pedal Edema Peripheral Pulses: 2+: Radial (L), Radial (R), Posterior Tibial (L), Posterior Tibial (R) Skin: Other (dorsal aspcect of right hand is erythematous, edematous, tender to palpation and increased warmth. There is also a 5 cm x 5cm area of erythema distal to right elbow. Able to move fingers and almost make a closed fist but with pain.) Neurological: Cranial Nerves Intact, Normal Gait, Normal Speech, Other (5/5 strength in upper and lower extremities bilaterally.) Psychiatric: Alert, Normal Affect, Normal Mood - Patient Data Result Diagrams: 12/16/18 16:04 12/16/18 16:04 Problem List Initiated/Reviewed/Updated: Yes Orders Last 24hrs: Active Orders 24 hr Category Date Time Status Patient Status [ADT] Routine ADT 12/16/18 15:21 Active Oxygen Therapy [RC] PRN Care 12/16/18 15:21 Active Up ad Trudy [RC] ASDIRECTED Care 12/16/18 15:21 Active VTE/DVT Education [RC] PER UNIT ROUTINE Care 12/16/18 15:21 Active Vital Signs [RC] Q4H Care 12/16/18 15:21 Active Regular Diet [DIET] Diet 12/16/18 Dinner Active Elbow Min 3V Rt [CR] Stat Exams 12/16/18 15:34 Ordered Hand Comp Min 3V Rt [CR] Stat Exams 12/16/18 15:34 Ordered CBC WITH AUTO DIFF [HEME] Stat Lab 12/16/18 15:27 Ordered COMPREHENSIVE METABOLIC PN,CMP [CHEM] Stat Lab 12/16/18 15:27 Ordered CULTURE BLOOD [BC] Stat Lab 12/16/18 15:27 Ordered CULTURE BLOOD [BC] Stat Lab 12/16/18 15:27 Ordered CULTURE WOUND [RM] Routine Lab 12/16/18 15:37 Ordered LACTATE WITH REFLEX [BG] Stat Lab 12/16/18 15:27 Ordered Acetaminophen [Tylenol] Med 12/16/18 15:21 Ordered 650 mg PO Q4H PRN Acetaminophen/HYDROcodone [[place] 325-5 MG] Med 12/16/18 15:21 Ordered 1 tab PO Q4H PRN Enoxaparin [Lovenox] Med 12/16/18 15:30 Ordered 40 mg SUBCUT Q24H Morphine Med 12/16/18 15:21 Ordered 2 mg IVPUSH Q2H PRN Ondansetron [Zofran ODT] Med 12/16/18 15:21 Ordered 4 mg PO Q4H PRN Pharmacy to Dose - Vancomycin Med 12/16/18 15:30 Ordered 1 dose .XX ASDIRECTED Blood Culture x2 Reflex Set [OM.PC] Stat Oth 12/16/18 15:27 Ordered Resuscitation Status Routine Resus Stat 12/16/18 15:21 Ordered Medication Orders Acetaminophen (Tylenol) 650 mg PO Q4H PRN PRN Reason: Pain (Mild 1-3)/fever Hydrocodone Bitart/Acetaminophen ([place] 325-5 Mg) 1 tab PO Q4H PRN PRN Reason: Pain (moderate 4-6) Enoxaparin Sodium (Lovenox) 40 mg SUBCUT Q24H [facility] Morphine Sulfate (Morphine) 2 mg IVPUSH Q2H PRN PRN Reason: Pain (severe 7-10) Stop: 12/17/18 15:23 Ondansetron HCl (Zofran Odt) 4 mg PO Q4H PRN PRN Reason: nausea, able to take PO Vancomycin HCl (Pharmacy To Dose - Vancomycin) 1 dose .XX ASDIRECTED [facility] Assessment/Plan Comment:: Assessment: 1. Cellulitis of right hand and right elbow. Plan: 1. For cellulitis, patient will be started on IV vancomycin. Will order CBC, CMP , lactate, blood cultures and wound culture. Will also order x-ray of right hand as well as right elbow to rule out any gas or bone involvement. Will monitor for improvement of area of erythema.
--- NOTE | 2018-12-16 16:16 | CR ---
Indication: Cellulitis Technique: Right elbow 3 views Comparison: None Findings: Bones: Alignment is normal. No fractures or bone lesions. No sign of osteomyelitis. Joint spaces: Joint spaces are well maintained. No degenerative changes. No sign of joint effusion. Soft tissues: Unremarkable. No soft gas or other focal abnormality. Impression: Normal right elbow. Dictated by Ghulam Paul MD @ Dec 16 2018 4:11PM Signed by Dr. Ghulam Paul @ Dec 16 2018 4:13PM
[2018-12-16 16:50] LABS: BLOOD UREA NITROGEN,BUN 17 mg/dL (7.0-18.0); CARBON DIOXIDE,CO2 22.4 mmol/L (21.0-32.0); CHLORIDE,CL 104 mmol/L (98-107); GLUCOSE RANDOM 139 mg/dL (74-106); POTASSIUM,K 3.8 mmol/L (3.5-5.1); SODIUM,NA 138 mmol/L (136-148)
--- NOTE | 2018-12-16 19:30 | CR ---
Indication: Cellulitis Technique: Three views right hand Comparison: None Findings: Bones: Alignment is normal. No fractures or bone lesions. Joint spaces: Unremarkable. Soft tissues: Unremarkable. Impression: Negative. Dictated by Lore Chavez MD @ Dec 16 2018 7:27PM Signed by Dr. Lore Chavez @ Dec 16 2018 7:28PM
[2018-12-16] MEDS: Morphine 2 MG/ML Syringe IVPUSH PRN (20:59)
[2018-12-16] MEDS: Acetaminophen 325 MG Tab PO PRN (21:06)
[2018-12-17] MEDS: Morphine 2 MG/ML Syringe IVPUSH PRN ×4 (00:38→11:29)
[2018-12-17 06:29] LABS: BLOOD UREA NITROGEN,BUN 15 mg/dL (7.0-18.0); CARBON DIOXIDE,CO2 26.1 mmol/L (21.0-32.0); CHLORIDE,CL 107 mmol/L (98-107); GLUCOSE RANDOM 95 mg/dL (74-106); POTASSIUM,K 4.2 mmol/L (3.5-5.1); SODIUM,NA 141 mmol/L (136-148)
[2018-12-17 08:08] VITALS: BP 112/60; PULSE 76
--- NOTE | 2018-12-17 10:13 | PCM.DCSUM1 ---
<Skyler Pratt - Last Filed: 12/17/18 10:08> Discharge Summary - Hospital Course Free Text/Narrative:: 33 y/o male here presented to PCP's clinic for right hand pain. Found to have right hand cellulitis on dorsal side near 5th MCP. Swollen, red, tender. Failed antibiotic treatment with Bactrim. He was started on IV vancomycin. He was recently seen about 1 week ago for left groin abscess which was I&D by Dr. Cortés. Case was discussed with Dr. Cortés who stated that if needed he needs to be evaluated by hand surgeon. Case discussed with Dr. Skinner and Dr. Meyers at [facility]. Who have accepted the patient. - Discharge Data Discharge Date: 12/17/18 Discharge Disposition: DC/Tfer to [facility] Condition: Good - Patient Instructions Diet: Regular Diet as Tolerated, Drink 8-10+ Glasses/Day Activity: Apply Ice, As Tolerated Notify Provider of: Fever, Increased Pain, Swelling and Redness, Drainage, Nausea and/or Vomiting - Discharge Plan *PRESCRIPTION DRUG MONITORING PROGRAM REVIEWED*: Not Applicable *COPY OF PRESCRIPTION DRUG MONITORING REPORT IN PATIENT AMEE: Not Applicable Home Medications: Home Meds Sulfamethoxazole/Trimethoprim [Bactrim Ds Tablet] 1 each PO BID 10 Days #20 tablet 11/08/18 [Rx] - Discharge Summary/Plan Comment DC Time >30 min.: No - Patient Data Vitals - Most Recent: Last Vital Signs Temp 36.7 C 12/17/18 08:00 Pulse 76 12/17/18 08:00 Resp 19 12/17/18 08:00 BP 112/60 12/17/18 08:00 Pulse Ox 99 12/17/18 08:00 Weight - Most Recent: 87.77 kg I&O - Last 24 hours: Intake & Output 12/16/18 12/17/18 12/17/18 22:59 06:59 14:59 Intake Total 240 1250 Output Total 0 800 Balance 240 450 Lab Results - Last 24 hrs: Laboratory Results - last 24 hr 12/16/18 12/16/18 12/16/18 Range/Units 16:04 16:04 16:04 WBC 8.56 (4.0-11.0) K/uL RBC 4.97 (4.50-5.90) M/uL Hgb 15.0 (13.0-17.0) g/dL Hct 44.4 (38.0-50.0) % MCV 89.3 (80.0-98.0) fL MCH 30.2 (27.0-32.0) pg MCHC 33.8 (31.0-37.0) g/dL RDW Std Deviation 43.7 (28.0-62.0) fl RDW Coeff of Aruna 13 (11.0-15.0) % Plt Count 207 (150-400) K/uL MPV 10.40 (7.40-12.00) fL Neut % (Auto) 84.5 H (48.0-80.0) % Lymph % (Auto) 9.1 L (16.0-40.0) % [place] % (Auto) 5.7 (0.0-15.0) % Eos % (Auto) 0.6 (0.0-7.0) % Baso % (Auto) 0.1 (0.0-1.5) % Neut # (Auto) 7.2 H (1.4-5.7) K/uL Lymph # (Auto) 0.8 (0.6-2.4) K/uL [place] # (Auto) 0.5 (0.0-0.8) K/uL Eos # (Auto) 0.1 (0.0-0.7) K/uL Baso # (Auto) 0.0 (0.0-0.1) K/uL Nucleated RBC % 0.0 /100WBC Nucleated RBCs # 0 K/uL Lactate 0.8 (0.20-2.00) mmol/L Sodium 138 (136-148) mmol/L Potassium 3.8 (3.5-5.1) mmol/L Chloride 104 (98-107) mmol/L Carbon Dioxide 22.4 (21.0-32.0) mmol/L BUN 17 (7.0-18.0) mg/dL Creatinine 0.7 L (0.8-1.3) mg/dL Est Cr Clr Drug Dosing 177.72 mL/min Estimated GFR (MDRD) > 60.0 ml/min Glucose 139 H (74-106) mg/dL Calcium 9.2 (8.5-10.1) mg/dL Total Bilirubin 0.6 (0.2-1.0) mg/dL AST 12 L (15-37) IU/L ALT 24 (14-63) IU/L Alkaline Phosphatase 70 (46-116) U/L Total Protein 7.3 (6.4-8.2) g/dL Albumin 3.7 (3.4-5.0) g/dL Globulin 3.6 (2.6-4.0) g/dL Albumin/Globulin Ratio 1.0 (0.9-1.6) 12/17/18 12/17/18 Range/Units 05:55 05:55 WBC 7.19 (4.0-11.0) K/uL RBC 4.86 (4.50-5.90) M/uL Hgb 14.4 (13.0-17.0) g/dL Hct 43.5 (38.0-50.0) % MCV 89.5 (80.0-98.0) fL MCH 29.6 (27.0-32.0) pg MCHC 33.1 (31.0-37.0) g/dL RDW Std Deviation 43.4 (28.0-62.0) fl RDW Coeff of Aruna 13 (11.0-15.0) % Plt Count 223 (150-400) K/uL MPV 10.30 (7.40-12.00) fL Neut % (Auto) 72.9 (48.0-80.0) % Lymph % (Auto) 17.2 (16.0-40.0) % [place] % (Auto) 7.4 (0.0-15.0) % Eos % (Auto) 2.4 (0.0-7.0) % Baso % (Auto) 0.1 (0.0-1.5) % Neut # (Auto) 5.2 (1.4-5.7) K/uL Lymph # (Auto) 1.2 (0.6-2.4) K/uL [place] # (Auto) 0.5 (0.0-0.8) K/uL Eos # (Auto) 0.2 (0.0-0.7) K/uL Baso # (Auto) 0.0 (0.0-0.1) K/uL Nucleated RBC % 0.0 /100WBC Nucleated RBCs # 0 K/uL Lactate (0.20-2.00) mmol/L Sodium 141 (136-148) mmol/L Potassium 4.2 (3.5-5.1) mmol/L Chloride 107 (98-107) mmol/L Carbon Dioxide 26.1 (21.0-32.0) mmol/L BUN 15 (7.0-18.0) mg/dL Creatinine 0.8 (0.8-1.3) mg/dL Est Cr Clr Drug Dosing 155.50 mL/min Estimated GFR (MDRD) > 60.0 ml/min Glucose 95 (74-106) mg/dL Calcium 9.2 (8.5-10.1) mg/dL Total Bilirubin (0.2-1.0) mg/dL AST (15-37) IU/L ALT (14-63) IU/L Alkaline Phosphatase (46-116) U/L Total Protein (6.4-8.2) g/dL Albumin (3.4-5.0) g/dL Globulin (2.6-4.0) g/dL Albumin/Globulin Ratio (0.9-1.6) Med Orders - Current: Current Medications Acetaminophen (Tylenol) 650 mg PO Q4H PRN PRN Reason: Pain (Mild 1-3)/fever Last Admin: 12/16/18 21:06 Dose: 650 mg Hydrocodone Bitart/Acetaminophen ([place] 325-5 Mg) 1 tab PO Q4H PRN PRN Reason: Pain (moderate 4-6) Last Admin: 12/16/18 16:44 Dose: 1 tab Enoxaparin Sodium (Lovenox) 40 mg SUBCUT Q24H IZZY Last Admin: 12/16/18 16:39 Dose: 40 mg Vancomycin HCl 1.25 gm/ Sodium (Chloride) 250 mls @ 166.667 mls/hr IV Q8H IZZY Last Admin: 12/17/18 10:07 Dose: 166.667 mls/hr Morphine Sulfate (Morphine) 2 mg IVPUSH Q2H PRN PRN Reason: Pain (severe 7-10) Stop: 12/17/18 15:23 Last Admin: 12/17/18 09:13 Dose: 2 mg Ondansetron HCl (Zofran Odt) 4 mg PO Q4H PRN PRN Reason: nausea, able to take PO Vancomycin HCl (Pharmacy To Dose - Vancomycin) 1 dose .XX ASDIRECTED [facility] <Demario Hoffman - Last Filed: 12/19/18 19:49> - Patient Data Vitals - Most Recent: Last Vital Signs Temp 36.7 C 12/17/18 08:00 Pulse 76 12/17/18 08:00 Resp 19 12/17/18 08:00 BP 112/60 12/17/18 08:00 Pulse Ox 99 12/17/18 08:00 CONRAD Results - Last 24 hrs: Microbiology 12/16/18 16:16 Aerobic Blood Culture - Preliminary Blood - Venous - Lab Draw NO GROWTH AFTER 3 DAYS Anaerobic Blood Culture - Preliminary NO GROWTH AFTER 3 DAYS 12/16/18 16:04 Aerobic Blood Culture - Preliminary Blood - Venous NO GROWTH AFTER 3 DAYS Anaerobic Blood Culture - Preliminary NO GROWTH AFTER 3 DAYS Med Orders - Current: Current Medications Discontinued Medications Acetaminophen (Tylenol) 650 mg PO Q4H PRN PRN Reason: Pain (Mild 1-3)/fever Last Admin: 12/17/18 10:16 Dose: 650 mg Hydrocodone Bitart/Acetaminophen ([place] 325-5 Mg) 1 tab PO Q4H PRN PRN Reason: Pain (moderate 4-6) Last Admin: 12/16/18 16:44 Dose: 1 tab Enoxaparin Sodium (Lovenox) 40 mg SUBCUT Q24H [facility] Last Admin: 12/16/18 16:39 Dose: 40 mg Vancomycin HCl 1.25 gm/ Sodium (Chloride) 250 mls @ 166.667 mls/hr IV Q8H [facility] Last Admin: 12/17/18 10:07 Dose: 166.667 mls/hr Morphine Sulfate (Morphine) 2 mg IVPUSH Q2H PRN PRN Reason: Pain (severe 7-10) Stop: 12/17/18 15:23 Last Admin: 12/17/18 11:29 Dose: 2 mg Ondansetron HCl (Zofran Odt) 4 mg PO Q4H PRN PRN Reason: nausea, able to take PO Vancomycin HCl (Pharmacy To Dose - Vancomycin) 1 dose .XX ASDIRECTED [facility] - Free Text/Narrative Note: I have evaluated the patient. I have discussed findings and treatment plan with resident. I agree with the assessment and plan outlined in the following note.
[2018-12-17] MEDS: Acetaminophen 325 MG Tab PO PRN (10:16)
== END 2018-12-17 12:20 | disposition critical access hospital (66) ==
LOC: MW.MS 14:12
PROVIDERS: ADMIT Internal Medicine; ATTEND Internal Medicine
DX: L03.113 Cellulitis of right upper limb (principal); Z87.891 Personal history of nicotine dependence
CPT/HCPCS: 36415; 73080; 73130; 80048; 80053; 83605; 85025; 87040; 96365; 96366; 96372; 96375; 96376; A9270; G0378; J1650; J2270; J3370; J7050

== ENCOUNTER 2019-11-06 20:25 | Inpatient (IN) | payer BC, OTHER ==
[2019-11-06] MEDS ORDERED: Sodium Chloride 0.9% 1,000 ML IV ONE (20:44)
[2019-11-06] MEDS ORDERED: Morphine 4 MG/ML Syringe IVPUSH ONE (20:48)
--- NOTE | 2019-11-06 20:48 | EDM.PDOC ---
ED HPI GENERAL MEDICAL PROBLEM - General Chief Complaint: Skin Complaint Stated Complaint: INFECTION RIGHT ARM Time Seen by Provider: 11/06/19 20:36 Source of Information: Reports: Patient History Limitations: Reports: No Limitations - History of Present Illness INITIAL COMMENTS - FREE TEXT/NARRATIVE: HISTORY AND PHYSICAL: History of present illness: Patient is a 34-year-old male who presents to the emergency room with complaints of right elbow cellulitis. Patient has a longstanding history of getting cellulitis infections that require admission for IV antibiotics. He most recently was admitted in December 2018 for a right elbow cellulitis which required a few days of IV vancomycin. He states approximately a week ago he started to notice some redness and swelling in the right elbow, denies any injury or trauma. He started his Bactrim DS that he has at home and has been taking this as prescribed but feels the area is not improving. He is here with the assumption that he will most likely be admitted again. Patient denies any fever, chills, headache, change in vision, syncope or near syncope. Denies any chest pain, back pain, shortness of breath or cough. Denies any abdominal pain, nausea, vomiting, diarrhea, constipation or dysuria. Has not noted any blood in urine or stool. Patient has been eating and drinking appropriately. Denies any alcohol or drug abuse Review of systems: As per history of present illness and below otherwise all systems reviewed and negative. Past medical history: As per history of present illness and as reviewed below otherwise noncontributory. Surgical history: As per history of present illness and as reviewed below otherwise noncontributory. Social history: See social history for further information Family history: As per history of present illness and as reviewed below otherwise noncontributory. Physical exam: General: Well-developed and well-nourished 34-year-old male. Alert and oriented. Nontoxic-appearing and in no acute distress. HEENT: Atraumatic, normocephalic, pupils equal and reactive bilaterally, negative for conjunctival pallor or scleral icterus, mucous membranes moist, TMs normal bilaterally, throat clear, neck supple, nontender, trachea midline. No drooling or trismus noted. No meningeal signs. No hot potato voice noted. Lungs: Clear to auscultation, breath sounds equal bilaterally. Heart: S1S2, regular rate and rhythm without overt murmur Abdomen: Soft, nondistended, nontender. Negative for masses or hepatosplenomegaly. Negative for costovertebral tenderness. Skin: Abrasion and soft tissue to right elbow. Erythema of mid forearm into the proximal elbow. Otherwise remaining skin is intact, warm, dry. No lesions or rashes noted. Extremities: See SKIN for details. Atraumatic, pain sedated with flexion and extension of the right elbow. He is able to demonstrate range of motion although difficulty with full extension of the elbow. Otherwise moves all extremities per self without difficulty or deficits. Strong radial pulse. Capillary refill less than 3 seconds. Neurovascular unremarkable. Neuro: Awake, alert, oriented. Cranial nerves II through XII unremarkable. Cerebellum unremarkable. Motor and sensory unremarkable throughout. Exam nonfocal. Notes: Patient has failed outpatient antibiotic therapy. The area was outlined with a surgical marker. He is agreeable to admission and would prefer to stay for IV antibiotics. Lab work is unremarkable. Cultures pending. X-ray shows soft tissue swelling, no bony abnormalities. I did consult with gilles Rodrigestalist on-call, he is agreeable to accepting this patient for further care and management. Diagnostics: CBC, CMP, lactate, blood cultures x2, elbow x-ray Therapeutics: IV fluid, morphine, vancomycin Impression: Cellulitis, right elbow History of MRSA Plan: Observation admission to Med-Surg Definitive disposition and diagnosis as appropriate pending reevaluation and review of above. right elbow Pain Score (Numeric/FACES): 7 - Related Data Allergies Allergy/AdvReac Type Severity Reaction Status Date / Time No Known Allergies Allergy Verified 11/06/19 20:32 Home Meds: Home Meds Sulfamethoxazole/Trimethoprim [Bactrim Ds Tablet] 1 each PO BID 10 Days #20 tablet 11/08/18 [Rx] Past Medical History - Past Health History Medical/Surgical History: Denies Medical/Surgical History HEENT History: Reports: None Cardiovascular History: Reports: None Respiratory History: Reports: None Gastrointestinal History: Reports: None Genitourinary History: Reports: None Neurological History: Reports: None Psychiatric History: Reports: None Endocrine/Metabolic History: Reports: None Hematologic History: Reports: None Oncologic (Cancer) History: Reports: None Dermatologic History: Reports: None - Infectious Disease History Infectious Disease History: Reports: Chicken Pox, MRSA - Past Surgical History Head Surgeries/Procedures: Reports: None HEENT Surgical History: Reports: Oral Surgery Musculoskeletal Surgical History: Reports: Other (See Below) Other Musculoskeletal Surgeries/Procedures:: 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 Social & Family History - Family History Family Medical History: Noncontributory - Tobacco Use Smoking Status *Q: Former Smoker Used Tobacco, but Quit: Yes Month/Year Tobacco Last Used: 2010 - Caffeine Use Caffeine Use: Reports: Coffee - Recreational Drug Use Recreational Drug Use: No ED ROS GENERAL - Review of Systems Review Of Systems: Comprehensive ROS is negative, except as noted in HPI. ED EXAM, SKIN/RASH Exam: See Below (See dictation) Course - Vital Signs Last Recorded V/S: Last Vital Signs Temp 97.7 F 11/06/19 20:33 Pulse 82 11/06/19 20:33 Resp 17 11/06/19 20:33 BP 116/75 11/06/19 20:33 Pulse Ox 97 11/06/19 20:33 - Orders/Labs/Meds Orders: Active Orders 24 hr Category Date Time Status Admission Status [Patient Status] [ADT] Stat ADT 11/06/19 21:37 Active CULTURE BLOOD [BC] Stat Lab 11/06/19 20:45 Received CULTURE BLOOD [BC] Stat Lab 11/06/19 21:02 Received Vancomycin 1 gm Med 11/06/19 20:49 Active Sodium Chloride 0.9% [Normal Saline (AdvBag)] 250 ml IV ONETIME Blood Culture x2 Reflex Set [OM.PC] Stat Oth 11/06/19 20:44 Ordered Medication Orders Vancomycin HCl 1 gm/ Sodium (Chloride) 250 mls @ 166 mls/hr IV ONETIME ONE Stop: 11/06/19 22:19 Last Admin: 11/06/19 21:18 Dose: 166 mls/hr Documented by: MORELIA Labs: Laboratory Tests 11/06/19 11/06/19 11/06/19 Range/Units 20:45 20:45 20:45 WBC 6.33 (4.0-11.0) K/uL RBC 4.36 L (4.50-5.90) M/uL Hgb 12.7 L (13.0-17.0) g/dL Hct 38.2 (38.0-50.0) % MCV 87.6 (80.0-98.0) fL MCH 29.1 (27.0-32.0) pg MCHC 33.2 (31.0-37.0) g/dL RDW Std Deviation 40.3 (28.0-62.0) fl RDW Coeff of Aruna 12 (11.0-15.0) % Plt Count 255 (150-400) K/uL MPV 10.20 (7.40-12.00) fL Neut % (Auto) 72.0 (48.0-80.0) % Lymph % (Auto) 16.7 (16.0-40.0) % Sac % (Auto) 7.7 (0.0-15.0) % Eos % (Auto) 3.3 (0.0-7.0) % Baso % (Auto) 0.3 (0.0-1.5) % Neut # (Auto) 4.6 (1.4-5.7) K/uL Lymph # (Auto) 1.1 (0.6-2.4) K/uL Sac # (Auto) 0.5 (0.0-0.8) K/uL Eos # (Auto) 0.2 (0.0-0.7) K/uL Baso # (Auto) 0.0 (0.0-0.1) K/uL Nucleated RBC % 0.0 /100WBC Nucleated RBCs # 0 K/uL Lactate 0.6 (0.20-2.00) mmol/L Sodium 136 (136-148) mmol/L Potassium 4.0 (3.5-5.1) mmol/L Chloride 102 (98-107) mmol/L Carbon Dioxide 23.6 (21.0-32.0) mmol/L BUN 14 (7.0-18.0) mg/dL Creatinine 1.0 (0.8-1.3) mg/dL Est Cr Clr Drug Dosing 123.23 mL/min Estimated GFR (MDRD) > 60.0 ml/min Glucose 108 H (74-106) mg/dL Calcium 8.4 L (8.5-10.1) mg/dL Total Bilirubin 0.2 (0.2-1.0) mg/dL AST 18 (15-37) IU/L ALT 26 (14-63) IU/L Alkaline Phosphatase 86 (46-116) U/L Total Protein 7.3 (6.4-8.2) g/dL Albumin 3.7 (3.4-5.0) g/dL Globulin 3.6 (2.6-4.0) g/dL Albumin/Globulin Ratio 1.0 (0.9-1.6) Meds: Medications Generic Name Dose Route Start Last Admin Trade Name Guanakito PRN Reason Stop Dose Admin Vancomycin HCl 1 gm/ Sodium 250 mls @ 166 mls/hr 11/06/19 20:49 11/06/19 21:18 Chloride IV 11/06/19 22:19 166 mls/hr ONETIME ONE Administration Discontinued Medications Generic Name Dose Route Start Last Admin Trade Name Guan[place]ito PRN Reason Stop Dose Admin Sodium Chloride 1,000 mls @ 999 mls/hr 11/06/19 20:44 11/06/19 21:18 Normal Saline IV 11/06/19 21:44 999 mls/hr STAT ONE Administration Morphine Sulfate 4 mg 11/06/19 20:48 11/06/19 21:17 Morphine IVPUSH 11/06/19 20:49 4 mg ONETIME ONE Administration Departure - Departure Time of Disposition: 21:45 Disposition: Admitted As Inpatient 65 Clinical Impression: History of MRSA infection Cellulitis Qualifiers: Site of cellulitis: extremity Site of cellulitis of extremity: upper extremity Laterality: right Qualified Code(s): L03.113 - Cellulitis of right upper limb - Discharge Information Referrals: Jayesh Reyes MD [Primary Care Provider] - Forms: ED Department Discharge Sepsis Event Note (ED) - Evaluation Sepsis Screening Result: No Definite Risk - Focused Exam Vital Signs: Vital Signs Temp Pulse Resp BP Pulse Ox 11/06/19 20:33 97.7 F 82 17 116/75 97 - My Orders Last 24 Hours: My Active Orders 11/06/19 20:44 Blood Culture x2 Reflex Set [OM.PC] Stat 11/06/19 20:45 CULTURE BLOOD [BC] Stat 11/06/19 20:49 Vancomycin 1 gm Sodium Chloride 0.9% [Normal Saline (AdvBag)] 250 ml IV ONETIME 11/06/19 21:02 CULTURE BLOOD [BC] Stat 11/06/19 21:37 Admission Status [Patient Status] [ADT] Stat - Assessment/Plan Last 24 Hours: My Active Orders 11/06/19 20:44 Blood Culture x2 Reflex Set [OM.PC] Stat 11/06/19 20:45 CULTURE BLOOD [BC] Stat 11/06/19 20:49 Vancomycin 1 gm Sodium Chloride 0.9% [Normal Saline (AdvBag)] 250 ml IV ONETIME 11/06/19 21:02 CULTURE BLOOD [BC] Stat 11/06/19 21:37 Admission Status [Patient Status] [ADT] Stat
[2019-11-06 21:19] LABS: BLOOD UREA NITROGEN,BUN 14 mg/dL (7.0-18.0); CARBON DIOXIDE,CO2 23.6 mmol/L (21.0-32.0); CHLORIDE,CL 102 mmol/L (98-107); GLUCOSE RANDOM 108 mg/dL (74-106); SODIUM,NA 136 mmol/L (136-148)
--- NOTE | 2019-11-06 21:43 | CR ---
Right elbow: 3 views of the right elbow were obtained. Soft tissue swelling is identified. No joint effusion is seen. No radiopaque foreign body is seen within the soft tissues. No acute fracture or other bony abnormality is identified. Impression: 1. Soft tissue swelling. 2. No additional abnormality is appreciated on right elbow study. Diagnostic code #2 Study was dictated in MDT
[2019-11-06] MEDS ORDERED: Acetaminophen 325 MG Tab PO PRN (23:28)
--- NOTE | 2019-11-06 23:34 | PCM.HP.2 ---
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 Patient has been taking bactrim without any improvement. He denies any fevers or swelling of the elbow joint. right elbow Pain Score (Numeric/FACES): 2 - Related Data Allergies/Adverse Reactions: Allergies Allergy/AdvReac Type Severity Reaction Status Date / Time No Known Allergies Allergy Verified 11/06/19 22:38 Home Medications: Home Meds Sulfamethoxazole/Trimethoprim [Bactrim Ds Tablet] 1 each PO BID 10 Days #20 tablet 11/08/18 [Rx] Past Medical History - Past Health History Medical/Surgical History: Denies Medical/Surgical History HEENT History: Reports: None Cardiovascular History: Reports: None Respiratory History: Reports: None Gastrointestinal History: Reports: None Genitourinary History: Reports: None Neurological History: Reports: None Psychiatric History: Reports: None Endocrine/Metabolic History: Reports: None Hematologic History: Reports: None Oncologic (Cancer) History: Reports: None Dermatologic History: Reports: None - Infectious Disease History Infectious Disease History: Reports: Chicken Pox, MRSA - Past Surgical History Head Surgeries/Procedures: Reports: None HEENT Surgical History: Reports: Oral Surgery Musculoskeletal Surgical History: Reports: Other (See Below) Other Musculoskeletal Surgeries/Procedures:: 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 Social & Family History - Family History Family Medical History: Noncontributory - Tobacco Use Smoking Status *Q: Former Smoker Used Tobacco, but Quit: Yes Month/Year Tobacco Last Used: 2010 - Caffeine Use Caffeine Use: Reports: None - Recreational Drug Use Recreational Drug Use: No H&P Review of Systems - Review of Systems: Review Of Systems: Comprehensive ROS is negative, except as noted in HPI. Exam - Exam Exam: See Below - Vital Signs Vital Signs: Last Vital Signs Temp 36.6 C 11/06/19 22:19 Pulse 70 11/06/19 22:19 Resp 16 11/06/19 22:19 BP 134/72 11/06/19 22:19 Pulse Ox 98 11/06/19 22:19 Weight: 91.354 kg - Exam General: Alert, Oriented HEENT: Mucosa Moist & [place] Neck: Supple Lungs: Clear to Auscultation, Normal Respiratory Effort Cardiovascular: Regular Rate, Regular Rhythm GI/Abdominal Exam: Normal Bowel Sounds, Soft, Non-Tender Extremities: Non-Tender, No Pedal Edema, Other (erythema over right forearm e xtending over elbow , abrasion noted proximal to elbow, no effusion noted, no drainage or area of fluctuance.). No: Joint Swelling Neurological: No: Focal Deficit - Patient Data Lab Results Last 24 hrs: Laboratory Results - last 24 hr 11/06/19 11/06/19 11/06/19 Range/Units 20:45 20:45 20:45 WBC 6.33 (4.0-11.0) K/uL RBC 4.36 L (4.50-5.90) M/uL Hgb 12.7 L (13.0-17.0) g/dL Hct 38.2 (38.0-50.0) % MCV 87.6 (80.0-98.0) fL MCH 29.1 (27.0-32.0) pg MCHC 33.2 (31.0-37.0) g/dL RDW Std Deviation 40.3 (28.0-62.0) fl RDW Coeff of Aruna 12 (11.0-15.0) % Plt Count 255 (150-400) K/uL MPV 10.20 (7.40-12.00) fL Neut % (Auto) 72.0 (48.0-80.0) % Lymph % (Auto) 16.7 (16.0-40.0) % [place] % (Auto) 7.7 (0.0-15.0) % Eos % (Auto) 3.3 (0.0-7.0) % Baso % (Auto) 0.3 (0.0-1.5) % Neut # (Auto) 4.6 (1.4-5.7) K/uL Lymph # (Auto) 1.1 (0.6-2.4) K/uL [place] # (Auto) 0.5 (0.0-0.8) K/uL Eos # (Auto) 0.2 (0.0-0.7) K/uL Baso # (Auto) 0.0 (0.0-0.1) K/uL Nucleated RBC % 0.0 /100WBC Nucleated RBCs # 0 K/uL Lactate 0.6 (0.20-2.00) mmol/L Sodium 136 (136-148) mmol/L Potassium 4.0 (3.5-5.1) mmol/L Chloride 102 (98-107) mmol/L Carbon Dioxide 23.6 (21.0-32.0) mmol/L BUN 14 (7.0-18.0) mg/dL Creatinine 1.0 (0.8-1.3) mg/dL Est Cr Clr Drug Dosing 123.23 mL/min Estimated GFR (MDRD) > 60.0 ml/min Glucose 108 H (74-106) mg/dL Calcium 8.4 L (8.5-10.1) mg/dL Total Bilirubin 0.2 (0.2-1.0) mg/dL AST 18 (15-37) IU/L ALT 26 (14-63) IU/L Alkaline Phosphatase 86 (46-116) U/L Total Protein 7.3 (6.4-8.2) g/dL Albumin 3.7 (3.4-5.0) g/dL Globulin 3.6 (2.6-4.0) g/dL Albumin/Globulin Ratio 1.0 (0.9-1.6) Result Diagrams: 11/08/19 06:07 11/08/19 06:07 Sepsis Event Note - Evaluation Sepsis Screening Result: No Definite Risk - Focused Exam Vital Signs: Vital Signs Temp Pulse Resp BP Pulse Ox 11/06/19 22:19 36.6 C 70 16 134/72 98 11/06/19 20:33 36.5 C 82 17 116/75 97 Date Exam was Performed: 11/08/19 Time Exam was Performed: 17:29 Problem List Initiated/Reviewed/Updated: No Orders Last 24hrs: Active Orders 24 hr Category Date Time Status Admission Status [Patient Status] [ADT] Stat ADT 11/06/19 21:37 Active Antiembolic Devices [RC] PER UNIT ROUTINE Care 11/06/19 23:29 Ordered Oxygen Therapy [RC] PRN Care 11/06/19 23:28 Ordered Up ad Trudy [RC] ASDIRECTED Care 11/06/19 23:28 Ordered VTE/DVT Education [RC] PER UNIT ROUTINE Care 06/22/20 23:28 Ordered Vital Signs [RC] Q4H Care 11/06/19 23:28 Ordered Regular Diet [DIET] Diet 11/06/19 Breakfast Ordered BASIC METABOLIC PANEL,BMP [CHEM] AM Lab 11/07/19 05:11 Ordered CBC WITH AUTO DIFF [HEME] AM Lab 11/07/19 05:11 Ordered CULTURE BLOOD [BC] Stat Lab 11/06/19 20:45 Received CULTURE BLOOD [BC] Stat Lab 11/06/19 21:02 Received VANCOMYCIN TROUGH [CHEM] Timed Lab 11/08/19 14:30 Ordered Acetaminophen [Tylenol] Med 11/06/19 23:28 Ordered 650 mg PO Q4H PRN Ibuprofen [Motrin] Med 11/06/19 23:28 Ordered 400 mg PO Q6H PRN Pharmacy to Dose - Vancomycin Med 11/06/19 23:30 Ordered 1 dose .XX ASDIRECTED VANCOmycin/Water for INJ (PEG) [VANCOmycin 1.5 GM/300 Med 11/07/19 07:00 Active ML Premix] 300 ml IV Q8H oxyCODONE Med 11/06/19 23:28 Ordered 5 mg PO Q4H PRN Blood Culture x2 Reflex Set [OM.PC] Stat Oth 11/06/19 20:44 Ordered Sequential Compression Device [OM.PC] Per Unit Routine Oth 11/06/19 23:28 Ordered Resuscitation Status Routine Resus Stat 11/06/19 23:28 Ordered Medication Orders Vancomycin HCl (Vancomycin 1.5 Gm/300 Ml Premix) 300 mls @ 200 mls/hr IV Q8H [facility] Vancomycin HCl (Pharmacy To Dose - Vancomycin) 1 dose .XX ASDIRECTED [facility] Assessment/Plan Comment:: 34 yo male admitted for right arm cellulitis. We will treat with vancomycin.
[2019-11-07] MEDS: oxyCODONE 5 MG Tab PO PRN ×4 (01:34→19:57)
[2019-11-07] MEDS: Ibuprofen 400 MG Tab PO PRN (06:21)
[2019-11-07 06:45] LABS: BLOOD UREA NITROGEN,BUN 12 mg/dL (7.0-18.0); CARBON DIOXIDE,CO2 25.3 mmol/L (21.0-32.0); CHLORIDE,CL 105 mmol/L (98-107); GLUCOSE RANDOM 101 mg/dL (74-106); POTASSIUM,K 4.1 mmol/L (3.5-5.1); SODIUM,NA 138 mmol/L (136-148)
--- NOTE | 2019-11-07 12:18 | PCM.PN ---
- General Info Date of Service: 11/07/19 Subjective Update: Mentions pain in right elbow same as yesterday; no new complaints however Functional Status: Reports: Pain Controlled - Review of Systems General: Denies: No Symptoms, Fever, Fatigue, Malaise, Chills HEENT: Reports: No Symptoms Pulmonary: Reports: No Symptoms Cardiovascular: Reports: No Symptoms Gastrointestinal: Reports: No Symptoms Genitourinary: Reports: No Symptoms Musculoskeletal: Reports: Other (left elbow pain ) Neurological: Reports: No Symptoms Psychiatric: Reports: No Symptoms - Patient Data Vitals - Most Recent: Last Vital Signs Temp 97.6 F 11/07/19 08:12 Pulse 76 11/07/19 08:12 Resp 17 11/07/19 08:12 BP 117/67 11/07/19 08:12 Pulse Ox 95 11/07/19 08:12 Weight - Most Recent: 91.354 kg I&O - Last 24 Hours: Intake & Output 11/06/19 11/07/19 11/07/19 22:59 06:59 14:59 Intake Total 1050 Output Total 900 Balance 150 Lab Results Last 24 Hours: Laboratory Results - last 24 hr 11/06/19 11/06/19 11/06/19 Range/Units 20:45 20:45 20:45 WBC 6.33 (4.0-11.0) K/uL RBC 4.36 L (4.50-5.90) M/uL Hgb 12.7 L (13.0-17.0) g/dL Hct 38.2 (38.0-50.0) % MCV 87.6 (80.0-98.0) fL MCH 29.1 (27.0-32.0) pg MCHC 33.2 (31.0-37.0) g/dL RDW Std Deviation 40.3 (28.0-62.0) fl RDW Coeff of Aruna 12 (11.0-15.0) % Plt Count 255 (150-400) K/uL MPV 10.20 (7.40-12.00) fL Neut % (Auto) 72.0 (48.0-80.0) % Lymph % (Auto) 16.7 (16.0-40.0) % [place] % (Auto) 7.7 (0.0-15.0) % Eos % (Auto) 3.3 (0.0-7.0) % Baso % (Auto) 0.3 (0.0-1.5) % Neut # (Auto) 4.6 (1.4-5.7) K/uL Lymph # (Auto) 1.1 (0.6-2.4) K/uL [place] # (Auto) 0.5 (0.0-0.8) K/uL Eos # (Auto) 0.2 (0.0-0.7) K/uL Baso # (Auto) 0.0 (0.0-0.1) K/uL Nucleated RBC % 0.0 /100WBC Nucleated RBCs # 0 K/uL Lactate 0.6 (0.20-2.00) mmol/L Sodium 136 (136-148) mmol/L Potassium 4.0 (3.5-5.1) mmol/L Chloride 102 (98-107) mmol/L Carbon Dioxide 23.6 (21.0-32.0) mmol/L BUN 14 (7.0-18.0) mg/dL Creatinine 1.0 (0.8-1.3) mg/dL Est Cr Clr Drug Dosing 123.23 mL/min Estimated GFR (MDRD) > 60.0 ml/min Glucose 108 H (74-106) mg/dL Calcium 8.4 L (8.5-10.1) mg/dL Total Bilirubin 0.2 (0.2-1.0) mg/dL AST 18 (15-37) IU/L ALT 26 (14-63) IU/L Alkaline Phosphatase 86 (46-116) U/L Total Protein 7.3 (6.4-8.2) g/dL Albumin 3.7 (3.4-5.0) g/dL Globulin 3.6 (2.6-4.0) g/dL Albumin/Globulin Ratio 1.0 (0.9-1.6) 11/07/19 11/07/19 Range/Units 06:02 06:02 WBC 5.15 (4.0-11.0) K/uL RBC 4.29 L (4.50-5.90) M/uL Hgb 12.3 L (13.0-17.0) g/dL Hct 37.8 L (38.0-50.0) % MCV 88.1 (80.0-98.0) fL MCH 28.7 (27.0-32.0) pg MCHC 32.5 (31.0-37.0) g/dL RDW Std Deviation 40.2 (28.0-62.0) fl RDW Coeff of Aruna 13 (11.0-15.0) % Plt Count 240 (150-400) K/uL MPV 10.50 (7.40-12.00) fL Neut % (Auto) 68.9 (48.0-80.0) % Lymph % (Auto) 17.5 (16.0-40.0) % [place] % (Auto) 9.9 (0.0-15.0) % Eos % (Auto) 3.5 (0.0-7.0) % Baso % (Auto) 0.2 (0.0-1.5) % Neut # (Auto) 3.6 (1.4-5.7) K/uL Lymph # (Auto) 0.9 (0.6-2.4) K/uL [place] # (Auto) 0.5 (0.0-0.8) K/uL Eos # (Auto) 0.2 (0.0-0.7) K/uL Baso # (Auto) 0.0 (0.0-0.1) K/uL Nucleated RBC % 0.0 /100WBC Nucleated RBCs # 0 K/uL Lactate (0.20-2.00) mmol/L Sodium 138 (136-148) mmol/L Potassium 4.1 (3.5-5.1) mmol/L Chloride 105 (98-107) mmol/L Carbon Dioxide 25.3 (21.0-32.0) mmol/L BUN 12 (7.0-18.0) mg/dL Creatinine 0.9 (0.8-1.3) mg/dL Est Cr Clr Drug Dosing 136.92 mL/min Estimated GFR (MDRD) > 60.0 ml/min Glucose 101 (74-106) mg/dL Calcium 8.5 (8.5-10.1) mg/dL Total Bilirubin (0.2-1.0) mg/dL AST (15-37) IU/L ALT (14-63) IU/L Alkaline Phosphatase (46-116) U/L Total Protein (6.4-8.2) g/dL Albumin (3.4-5.0) g/dL Globulin (2.6-4.0) g/dL Albumin/Globulin Ratio (0.9-1.6) Med Orders - Current: Current Medications Acetaminophen (Tylenol) 650 mg PO Q4H PRN PRN Reason: Pain (Mild 1-3)/fever Vancomycin HCl (Vancomycin 1.5 Gm/300 Ml Premix) 300 mls @ 200 mls/hr IV Q8H IZZY Last Admin: 11/07/19 06:15 Dose: 200 mls/hr Documented by: Ibuprofen (Motrin) 400 mg PO Q6H PRN PRN Reason: Pain (mild 1-3) Last Admin: 11/07/19 06:21 Dose: 400 mg Documented by: Oxycodone HCl (Oxycodone) 5 mg PO Q4H PRN PRN Reason: Pain (moderate 4-6) Last Admin: 11/07/19 08:56 Dose: 5 mg Documented by: Vancomycin HCl (Pharmacy To Dose - Vancomycin) 1 dose .XX ASDIRECTED [facility] Discontinued Medications Sodium Chloride (Normal Saline) 1,000 mls @ 999 mls/hr IV STAT ONE Stop: 11/06/19 21:44 Last Admin: 11/06/19 21:18 Dose: 999 mls/hr Documented by: Vancomycin HCl 1 gm/ Sodium (Chloride) 250 mls @ 166 mls/hr IV ONETIME ONE Stop: 11/06/19 22:19 Last Admin: 11/06/19 21:18 Dose: 166 mls/hr Documented by: Morphine Sulfate (Morphine) 4 mg IVPUSH ONETIME ONE Stop: 11/06/19 20:49 Last Admin: 11/06/19 21:17 Dose: 4 mg Documented by: - Exam Quality Assessment: No: Supplemental Oxygen General: Alert, Oriented, Cooperative, No Acute Distress HEENT: EOMI Neck: Supple Lungs: Clear to Auscultation, Normal Respiratory Effort Cardiovascular: Regular Rate, Regular Rhythm GI/Abdominal Exam: Soft, Non-Tender Extremities: Other (right elbow: redness unchanged from admission; similar ROM reductions secondary to pain ; minimal swelling at joint ) Skin: Warm Neurological: No New Focal Deficit Psy/Mental Status: Alert Sepsis Event Note - Evaluation Sepsis Screening Result: No Definite Risk - Focused Exam Vital Signs: Vital Signs Temp Pulse Resp BP Pulse Ox 11/07/19 08:12 97.6 F 76 17 117/67 95 11/07/19 06:28 98.1 F 80 20 120/72 95 Date Exam was Performed: 11/07/19 Time Exam was Performed: 12:19 - Problem List Review Problem List Initiated/Reviewed/Updated: Yes - Plan Plan:: Assessment: 1. Right arm cellulitis 2. hx of MRSA. Plan Admitted to observation. Full code 1. Continue Vancomycin for now. Bcx pending. Pt otherwise afebrile and not showing signs of sepsis. Cellulitis overlying right elbow joint; continue to monitor, if not improving , worsening pain and or further reduction ROM ; will consider further imaging. 2. Continue pain control w. current management. :oxycodone/Tylenol/ibuprofen.
[2019-11-07] MEDS ORDERED: Ketorolac 30 MG/ML SDV IVPUSH ONE (15:41)
[2019-11-07] MEDS ORDERED: diphenhydrAMINE 50 MG/ML SDV IVPUSH ONE (15:41)
[2019-11-07] MEDS ORDERED: Metoclopramide 10 MG/2 ML SDV IVPUSH ONE (15:41)
[2019-11-08] MEDS: oxyCODONE 5 MG Tab PO PRN ×4 (06:18→20:03)
[2019-11-08 06:39] LABS: BLOOD UREA NITROGEN,BUN 13 mg/dL (7.0-18.0); CARBON DIOXIDE,CO2 26.2 mmol/L (21.0-32.0); CHLORIDE,CL 105 mmol/L (98-107); GLUCOSE RANDOM 97 mg/dL (74-106); POTASSIUM,K 4.5 mmol/L (3.5-5.1); SODIUM,NA 138 mmol/L (136-148)
--- NOTE | 2019-11-08 09:13 | PCM.PN ---
- General Info Date of Service: 11/08/19 Subjective Update: No new pain; mentions tightness in elbow improved Functional Status: Reports: Pain Controlled - Review of Systems General: Denies: Fever, Weakness, Malaise, Chills HEENT: Reports: No Symptoms Pulmonary: Reports: No Symptoms Cardiovascular: Reports: No Symptoms Gastrointestinal: Reports: No Symptoms Musculoskeletal: Reports: Arm Pain Skin: Reports: Other (erythema) Neurological: Reports: No Symptoms - Patient Data Vitals - Most Recent: Last Vital Signs Temp 97.4 F 11/08/19 04:00 Pulse 76 11/08/19 04:00 Resp 16 11/08/19 04:00 BP 105/68 11/08/19 04:00 Pulse Ox 98 11/08/19 04:00 Weight - Most Recent: 91.354 kg I&O - Last 24 Hours: Intake & Output 11/07/19 11/08/19 11/08/19 22:59 06:59 14:59 Intake Total 1140 1600 Output Total 1256 1500 Balance -116 100 Lab Results Last 24 Hours: Laboratory Results - last 24 hr 11/08/19 11/08/19 Range/Units 06:07 06:07 WBC 4.43 (4.0-11.0) K/uL RBC 4.22 L (4.50-5.90) M/uL Hgb 12.5 L (13.0-17.0) g/dL Hct 37.1 L (38.0-50.0) % MCV 87.9 (80.0-98.0) fL MCH 29.6 (27.0-32.0) pg MCHC 33.7 (31.0-37.0) g/dL RDW Std Deviation 39.6 (28.0-62.0) fl RDW Coeff of Aruna 12 (11.0-15.0) % Plt Count 246 (150-400) K/uL MPV 10.00 (7.40-12.00) fL Neut % (Auto) 53.0 (48.0-80.0) % Lymph % (Auto) 32.1 (16.0-40.0) % [place] % (Auto) 8.6 (0.0-15.0) % Eos % (Auto) 6.1 (0.0-7.0) % Baso % (Auto) 0.2 (0.0-1.5) % Neut # (Auto) 2.4 (1.4-5.7) K/uL Lymph # (Auto) 1.4 (0.6-2.4) K/uL [place] # (Auto) 0.4 (0.0-0.8) K/uL Eos # (Auto) 0.3 (0.0-0.7) K/uL Baso # (Auto) 0.0 (0.0-0.1) K/uL Nucleated RBC % 0.0 /100WBC Nucleated RBCs # 0 K/uL Sodium 138 (136-148) mmol/L Potassium 4.5 (3.5-5.1) mmol/L Chloride 105 (98-107) mmol/L Carbon Dioxide 26.2 (21.0-32.0) mmol/L BUN 13 (7.0-18.0) mg/dL Creatinine 0.8 (0.8-1.3) mg/dL Est Cr Clr Drug Dosing 154.04 mL/min Estimated GFR (MDRD) > 60.0 ml/min Glucose 97 (74-106) mg/dL Calcium 8.4 L (8.5-10.1) mg/dL Total Bilirubin 0.3 (0.2-1.0) mg/dL AST 16 (15-37) IU/L ALT 26 (14-63) IU/L Alkaline Phosphatase 71 (46-116) U/L Total Protein 6.8 (6.4-8.2) g/dL Albumin 3.2 L (3.4-5.0) g/dL Globulin 3.6 (2.6-4.0) g/dL Albumin/Globulin Ratio 0.9 (0.9-1.6) Meir Results Last 24 Hours: Microbiology 11/06/19 21:02 Aerobic Blood Culture - Preliminary Blood - Venous - Lab Draw NO GROWTH AFTER 1 DAY Anaerobic Blood Culture - Preliminary NO GROWTH AFTER 1 DAY 11/06/19 20:45 Aerobic Blood Culture - Preliminary Blood - Venous NO GROWTH AFTER 1 DAY Anaerobic Blood Culture - Preliminary NO GROWTH AFTER 1 DAY Med Orders - Current: Current Medications Acetaminophen (Tylenol) 650 mg PO Q4H PRN PRN Reason: Pain (Mild 1-3)/fever Vancomycin HCl (Vancomycin 1.5 Gm/300 Ml Premix) 300 mls @ 200 mls/hr IV Q8H [facility] Last Admin: 11/08/19 06:15 Dose: 200 mls/hr Documented by: Ibuprofen (Motrin) 400 mg PO Q6H PRN PRN Reason: Pain (mild 1-3) Last Admin: 11/07/19 06:21 Dose: 400 mg Documented by: Oxycodone HCl (Oxycodone) 5 mg PO Q4H PRN PRN Reason: Pain (moderate 4-6) Last Admin: 11/08/19 06:18 Dose: 5 mg Documented by: Vancomycin HCl (Pharmacy To Dose - Vancomycin) 1 dose .XX ASDIRECTED [facility] Discontinued Medications Diphenhydramine HCl (Benadryl) 25 mg IVPUSH ONETIME ONE Stop: 11/07/19 15:42 Last Admin: 11/07/19 16:38 Dose: 25 mg Documented by: Sodium Chloride (Normal Saline) 1,000 mls @ 999 mls/hr IV STAT ONE Stop: 11/06/19 21:44 Last Admin: 11/06/19 21:18 Dose: 999 mls/hr Documented by: Vancomycin HCl 1 gm/ Sodium (Chloride) 250 mls @ 166 mls/hr IV ONETIME ONE Stop: 11/06/19 22:19 Last Admin: 11/06/19 21:18 Dose: 166 mls/hr Documented by: Ketorolac Tromethamine (Toradol) 30 mg IVPUSH ONETIME ONE Stop: 11/07/19 15:42 Last Admin: 11/07/19 16:34 Dose: 30 mg Documented by: Metoclopramide HCl (Reglan) 10 mg IVPUSH ONETIME ONE Stop: 11/07/19 15:42 Last Admin: 11/07/19 16:32 Dose: 10 mg Documented by: Morphine Sulfate (Morphine) 4 mg IVPUSH ONETIME ONE Stop: 11/06/19 20:49 Last Admin: 11/06/19 21:17 Dose: 4 mg Documented by: - Exam Quality Assessment: No: Supplemental Oxygen General: Alert, Oriented, Cooperative, No Acute Distress HEENT: Pupils Equal Neck: Supple Lungs: Clear to Auscultation, Normal Respiratory Effort Cardiovascular: Regular Rate, Regular Rhythm GI/Abdominal Exam: Soft Extremities: Arm Pain, Other (right elbow: decreased ROM secondary to pain in elbow/edema ) Wound/Incisions: Erythema Improving Neurological: No New Focal Deficit Psy/Mental Status: Alert, Normal Affect, Normal Mood Sepsis Event Note - Evaluation Sepsis Screening Result: No Definite Risk - Focused Exam Vital Signs: Vital Signs Temp Pulse Resp BP Pulse Ox 11/08/19 04:00 97.4 F 76 16 105/68 98 11/08/19 00:15 97.8 F 80 16 99/66 97 Date Exam was Performed: 11/08/19 Time Exam was Performed: 10:57 - Problem List Review Problem List Initiated/Reviewed/Updated: Yes - Plan Plan:: Assessment: 1. Right arm cellulitis 2. hx of MRSA. Plan Admitted to observation. Full code 1. Continue Vancomycin for now. Bcx pending. Pt otherwise afebrile and not showing signs of sepsis. Cellulitis overlying right elbow joint interval improvement , ROM improving. Vitals stable. Will speak with orthopedics if any additional intervention required 2. Continue pain control w. current management. :oxycodone/Tylenol/ibuprofen.
[2019-11-08] MEDS: Ibuprofen 400 MG Tab PO PRN (18:15)
[2019-11-09 06:39] LABS: BLOOD UREA NITROGEN,BUN 12 mg/dL (7.0-18.0); CARBON DIOXIDE,CO2 26.3 mmol/L (21.0-32.0); CHLORIDE,CL 105 mmol/L (98-107); GLUCOSE RANDOM 97 mg/dL (74-106); POTASSIUM,K 4.2 mmol/L (3.5-5.1); SODIUM,NA 140 mmol/L (136-148)
[2019-11-09] MEDS ORDERED: oxyCODONE 5 MG Tab PO PRN (08:07)
--- NOTE | 2019-11-09 11:03 | PCM.DCSUM1 ---
<Aimee Parikh - Last Filed: 11/09/19 11:44> Discharge Summary - Hospital Course Free Text/Narrative:: Patient is a 34 y.o male with significant PMH repeated episodes of cellulites; presented w. increasing swelling, redness and decrease ROM of right elbow for 4- 5 days prior to admission. Mentions using, as prescribed, Bactrim DS BID x 4 days but noticed swelling and redness was tracking up his left forearm. Presented to ED. ED course: imaging did not yield any significant abscesses and or fx/dislocation. pt denied any trauma and or abrasion to area. hospital course: pt. remained afebrile. Bcx x 2 days negative. Orthopedics did not feel an I/D was warranted. Continued on Vancomycin w. daily improvement of erythema, edema and ROM returned back to full range. Pain controlled w. oxycodone and Tylenol. Afebrile and requested discharge. Based off hx of previous sensitivities; pt was sent home on doxycycline for 10 days BID; advised to follow up with PCP; appointment made. Advised to notify provider or proceed to ED if fevers, chills ,BA, loss of ROM develops. - Discharge Data Discharge Date: 11/09/19 Discharge Disposition: Home, Self-Care 01 Condition: Stable - Referral to Home Health Primary Care Physician: Jayesh Reyes MD - Discharge Plan Prescriptions/Med Rec: Doxycycline [Vibramycin] 100 mg PO BID 10 Days #20 tab Home Medications: Home Meds Acetaminophen [Tylenol] 650 mg PO Q4H PRN tablet 11/09/19 [Rx] Doxycycline [Vibramycin] 100 mg PO BID 10 Days #20 tab 11/09/19 [Rx] Patient Handouts: Doxycycline tablets or capsules, Cellulitis, Adult, [id number] Referrals: [facility] [Outside] Jayesh Reyes MD [Primary Care Provider] - 11/14/19 3:30 pm (Arrive 15 minutes early with a photo ID, insurance card, discharge paperwork, and a mask if you have one. ) - Discharge Summary/Plan Comment DC Time >30 min.: No - Patient Data Vitals - Most Recent: Last Vital Signs Temp 97.7 F 11/09/19 08:00 Pulse 70 11/09/19 08:00 Resp 16 11/09/19 08:00 BP 123/75 11/09/19 08:00 Pulse Ox 97 11/09/19 08:00 Weight - Most Recent: 91.354 kg I&O - Last 24 hours: Intake & Output 11/08/19 11/09/19 11/09/19 22:59 06:59 14:59 Intake Total 900 Output Total 900 1325 Balance -900 -425 Lab Results - Last 24 hrs: Laboratory Results - last 24 hr 11/08/19 11/09/19 11/09/19 Range/Units 13:39 05:58 05:58 WBC 4.04 (4.0-11.0) K/uL RBC 4.32 L (4.50-5.90) M/uL Hgb 12.8 L (13.0-17.0) g/dL Hct 37.8 L (38.0-50.0) % MCV 87.5 (80.0-98.0) fL MCH 29.6 (27.0-32.0) pg MCHC 33.9 (31.0-37.0) g/dL RDW Std Deviation 39.5 (28.0-62.0) fl RDW Coeff of Aruna 12 (11.0-15.0) % Plt Count 273 (150-400) K/uL MPV 9.80 (7.40-12.00) fL Neut % (Auto) 49.1 (48.0-80.0) % Lymph % (Auto) 37.6 (16.0-40.0) % [place] % (Auto) 7.4 (0.0-15.0) % Eos % (Auto) 5.7 (0.0-7.0) % Baso % (Auto) 0.2 (0.0-1.5) % Neut # (Auto) 2.0 (1.4-5.7) K/uL Lymph # (Auto) 1.5 (0.6-2.4) K/uL [place] # (Auto) 0.3 (0.0-0.8) K/uL Eos # (Auto) 0.2 (0.0-0.7) K/uL Baso # (Auto) 0.0 (0.0-0.1) K/uL Nucleated RBC % 0.0 /100WBC Nucleated RBCs # 0 K/uL Sodium 140 (136-148) mmol/L Potassium 4.2 (3.5-5.1) mmol/L Chloride 105 (98-107) mmol/L Carbon Dioxide 26.3 (21.0-32.0) mmol/L BUN 12 (7.0-18.0) mg/dL Creatinine 0.8 (0.8-1.3) mg/dL Est Cr Clr Drug Dosing 154.04 mL/min Estimated GFR (MDRD) > 60.0 ml/min Glucose 97 (74-106) mg/dL Calcium 8.4 L (8.5-10.1) mg/dL Total Bilirubin 0.2 (0.2-1.0) mg/dL AST 17 (15-37) IU/L ALT 28 (14-63) IU/L Alkaline Phosphatase 69 (46-116) U/L Total Protein 6.8 (6.4-8.2) g/dL Albumin 3.2 L (3.4-5.0) g/dL Globulin 3.6 (2.6-4.0) g/dL Albumin/Globulin Ratio 0.9 (0.9-1.6) Vancomycin Trough 16.5 H (5.0-10.0) ug/mL CONRAD Results - Last 24 hrs: Microbiology 11/06/19 21:02 Aerobic Blood Culture - Preliminary Blood - Venous - Lab Draw NO GROWTH AFTER 2 DAYS Anaerobic Blood Culture - Preliminary NO GROWTH AFTER 2 DAYS 11/06/19 20:45 Aerobic Blood Culture - Preliminary Blood - Venous NO GROWTH AFTER 2 DAYS Anaerobic Blood Culture - Preliminary NO GROWTH AFTER 2 DAYS Med Orders - Current: Current Medications Acetaminophen (Tylenol) 650 mg PO Q4H PRN PRN Reason: Pain (Mild 1-3)/fever Vancomycin HCl (Vancomycin 1.5 Gm/300 Ml Premix) 300 mls @ 200 mls/hr IV Q8H IZZY Last Admin: 11/09/19 05:48 Dose: 200 mls/hr Documented by: Ibuprofen (Motrin) 400 mg PO Q6H PRN PRN Reason: Pain (mild 1-3) Last Admin: 11/08/19 18:15 Dose: 400 mg Documented by: Oxycodone HCl (Oxycodone) 5 mg PO Q8H PRN PRN Reason: Pain (moderate 4-6) Vancomycin HCl (Pharmacy To Dose - Vancomycin) 1 dose .XX ASDIRECTED IZZY Discontinued Medications Diphenhydramine HCl (Benadryl) 25 mg IVPUSH ONETIME ONE Stop: 11/07/19 15:42 Last Admin: 11/07/19 16:38 Dose: 25 mg Documented by: Sodium Chloride (Normal Saline) 1,000 mls @ 999 mls/hr IV STAT ONE Stop: 11/06/19 21:44 Last Admin: 11/06/19 21:18 Dose: 999 mls/hr Documented by: Vancomycin HCl 1 gm/ Sodium (Chloride) 250 mls @ 166 mls/hr IV ONETIME ONE Stop: 11/06/19 22:19 Last Admin: 11/06/19 21:18 Dose: 166 mls/hr Documented by: Ketorolac Tromethamine (Toradol) 30 mg IVPUSH ONETIME ONE Stop: 11/07/19 15:42 Last Admin: 11/07/19 16:34 Dose: 30 mg Documented by: Metoclopramide HCl (Reglan) 10 mg IVPUSH ONETIME ONE Stop: 11/07/19 15:42 Last Admin: 11/07/19 16:32 Dose: 10 mg Documented by: Morphine Sulfate (Morphine) 4 mg IVPUSH ONETIME ONE Stop: 11/06/19 20:49 Last Admin: 11/06/19 21:17 Dose: 4 mg Documented by: Oxycodone HCl (Oxycodone) 5 mg PO Q4H PRN PRN Reason: Pain (moderate 4-6) Last Admin: 11/08/19 20:03 Dose: 5 mg Documented by: <Demario Hoffman - Last Filed: 11/10/19 21:40> Discharge Summary - Referral to Home Health Primary Care Physician: Jayesh Reyes MD - Patient Data Vitals - Most Recent: Last Vital Signs Temp 36.6 C 11/09/19 11:24 Pulse 71 11/09/19 11:24 Resp 14 11/09/19 11:24 BP 122/73 11/09/19 11:24 Pulse Ox 95 11/09/19 11:24 CONRAD Results - Last 24 hrs: Microbiology 11/06/19 21:02 Aerobic Blood Culture - Preliminary Blood - Venous - Lab Draw NO GROWTH AFTER 4 DAYS Anaerobic Blood Culture - Preliminary NO GROWTH AFTER 4 DAYS 06/22/20 20:45 Aerobic Blood Culture - Preliminary Blood - Venous NO GROWTH AFTER 4 DAYS Anaerobic Blood Culture - Preliminary NO GROWTH AFTER 4 DAYS Med Orders - Current: Current Medications Discontinued Medications Acetaminophen (Tylenol) 650 mg PO Q4H PRN PRN Reason: Pain (Mild 1-3)/fever Diphenhydramine HCl (Benadryl) 25 mg IVPUSH ONETIME ONE Stop: 11/07/19 15:42 Last Admin: 11/07/19 16:38 Dose: 25 mg Documented by: Sodium Chloride (Normal Saline) 1,000 mls @ 999 mls/hr IV STAT ONE Stop: 11/06/19 21:44 Last Admin: 11/06/19 21:18 Dose: 999 mls/hr Documented by: Vancomycin HCl 1 gm/ Sodium (Chloride) 250 mls @ 166 mls/hr IV ONETIME ONE Stop: 11/06/19 22:19 Last Admin: 11/06/19 21:18 Dose: 166 mls/hr Documented by: Vancomycin HCl (Vancomycin 1.5 Gm/300 Ml Premix) 300 mls @ 200 mls/hr IV Q8H IZZY Last Admin: 11/09/19 05:48 Dose: 200 mls/hr Documented by: Ibuprofen (Motrin) 400 mg PO Q6H PRN PRN Reason: Pain (mild 1-3) Last Admin: 11/08/19 18:15 Dose: 400 mg Documented by: Ketorolac Tromethamine (Toradol) 30 mg IVPUSH ONETIME ONE Stop: 11/07/19 15:42 Last Admin: 11/07/19 16:34 Dose: 30 mg Documented by: Metoclopramide HCl (Reglan) 10 mg IVPUSH ONETIME ONE Stop: 11/07/19 15:42 Last Admin: 11/07/19 16:32 Dose: 10 mg Documented by: Morphine Sulfate (Morphine) 4 mg IVPUSH ONETIME ONE Stop: 11/06/19 20:49 Last Admin: 11/06/19 21:17 Dose: 4 mg Documented by: Oxycodone HCl (Oxycodone) 5 mg PO Q4H PRN PRN Reason: Pain (moderate 4-6) Last Admin: 11/08/19 20:03 Dose: 5 mg Documented by: Oxycodone HCl (Oxycodone) 5 mg PO Q8H PRN PRN Reason: Pain (moderate 4-6) Vancomycin HCl (Pharmacy To Dose - Vancomycin) 1 dose .XX ASDIRECTED IZZY - Free Text/Narrative Note: I have seen and evaluated the patient with the resident. I have discussed findings and treatment plan with resident. I agree with the assessment and plan as outlined in the following note.
[2019-11-09 11:26] VITALS: BP 122/73; PULSE 71
== END 2019-11-09 12:15 | disposition home or self-care (01) | DRG 603 ==
LOC: MW.ED 20:25 → MW.MS 21:52
PROVIDERS: ADMIT Internal Medicine; ATTEND Internal Medicine
DX: L03.113 Cellulitis of right upper limb (principal); Z86.14 Personal history of Methicillin resistant Staphylococcus aureus infection
CPT/HCPCS: 36415; 73080-26-RT; 73080-RT; 80048; 80053; 80202; 83605; 85025; 87040; 96365; 96375; 99283; 99284-25; A9270-GY; J1200; J1885; J2270; J2765; J3370; J7030; J7050

== ENCOUNTER 2020-12-11 14:19 | Inpatient (IN) | payer OTHER ==
--- NOTE | 2020-12-11 15:46 | EDM.PDOC ---
ED HPI GENERAL MEDICAL PROBLEM - General Chief Complaint: Skin Complaint Stated Complaint: INFECTION ON RIGHT KNEE Time Seen by Provider: 12/11/20 14:50 Source of Information: Reports: Patient History Limitations: Reports: No Limitations - History of Present Illness INITIAL COMMENTS - FREE TEXT/NARRATIVE: HISTORY AND PHYSICAL: History of present illness: Patient is a 35-year-old male who presents to the emergency room with complaints of skin infection to his right knee. Patient has a longstanding history of MRSA and staph infections. He noticed a small ingrown hair/reddened area to his right knee 3 days ago, started taking Bactrim DS (left over from previous infections) over the past 3 days. Redness continues to grow in size and is uncomfortable to touch. He denies any injury, trauma or falls. Patient denies any fever, chills, headache, change in vision, syncope or near syncope. Denies any chest pain, back pain, shortness of breath or cough. Denies any GI or symptoms. Patient has been eating and drinking appropriately. Denies any IV drug use. Review of systems: As per history of present illness and below otherwise all systems reviewed and negative. Past medical history: As per history of present illness and as reviewed below otherwise noncontributory. Surgical history: As per history of present illness and as reviewed below otherwise noncontri butory. Social history: See social history for further information Family history: As per history of present illness and as reviewed below otherwise noncontributory. Physical exam: General: Well developed and well nourished 35-year-old male. Alert and orientated x 3. Nontoxic in appearance and in no acute distress. Vital signs are stable and have been reviewed by me. Nursing notes were reviewed. HEENT: Atraumatic, normocephalic, pupils equal and reactive bilaterally, negative for conjunctival pallor or scleral icterus, mucous membranes moist, TMs normal bilaterally, throat clear, neck supple, nontender, trachea midline. No drooling or trismus noted. No meningeal signs. No hot potato voice noted. Lungs: Clear to auscultation bilaterally. No wheezes, rales, or rhonchi. Chest nontender. Normal work of breathing, no accessory muscles used. Heart: S1S2, regular rate and rhythm without overt murmur, gallops, or rubs. No JVD. No peripheral edema Abdomen: Soft, nondistended, nontender. Normoactive bowel sounds. Negative for masses or costovertebral tenderness. Skin: Skin break down on the right patella, nonfluctuant. Diffuse erythema noted from patella down the anterior carcamo, ending above the ankle. Remaining skin is intact, warm, dry. No lesions or rashes noted. Hematologic: No petechiae or purpra. Mucosa appropriate color and normal nail bed color and refill. Extremities: Atraumatic, tenderness to right patella, good flexion and extension. He moves all extremities per self without difficulty or deficits, negative for cords or calf pain. Neurovascular unremarkable. Neuro: Awake, alert, oriented. Cranial nerves II through XII unremarkable. Cerebellum unremarkable. Motor and sensory unremarkable throughout. Exam nonfocal. Psychiatric: Mood and affect are appropriate. Normal thought process. Answering questions appropriately. Notes: *This patient was seen and evaluated during the 2019 SARS-CoV-2 novel coronavirus pandemic period. Community viral transmission is ongoing at time of this encounter and the emergency department is operating under pandemic response procedures. Patient is a 35-year-old male who presents to the emergency room with complaints of cellulitic infection of the right lower extremity. He states it started out as an ingrown hair and then redness extended down his carcamo. He has been taking Bactrim DS twice daily for the past 3 days without any improvement. We will do basic lab work and blood cultures. I have talked with the patient about today's findings, in addition to providing specific details for plan of care. Since he has failed outpatient therapy I feel he should be admitted for IV antibiotics. He states this did happen approximately a year ago with the same problem. Soft tissue swelling overlying the patella. No other acute findings. Lab work is unremarkable. Spoke with Dr Hoffman, who is agreeable to keeping patient for further care and management. Patient is vitally stable. He is agreeable to being admitted. Diagnostics: CBC, CMP, BC x 2, knee x-ray, COVID Therapeutics: Vancomycin Impression: Cellulitis Plan: Inpatient admission Definitive disposition and diagnosis as appropriate pending reevaluation and review of above. Duration: Day(s): Location: Reports: Lower Extremity, Right - Related Data Allergies Allergy/AdvReac Type Severity Reaction Status Date / Time No Known Allergies Allergy Verified 11/06/19 22:38 Home Meds: Home Meds Acetaminophen [Tylenol] 650 mg PO Q4H PRN tablet 11/09/19 [Rx] Doxycycline [Vibramycin] 100 mg PO BID 10 Days #20 tab 11/09/19 [Rx] Past Medical History - Past Health History Medical/Surgical History: Denies Medical/Surgical History HEENT History: Reports: None Cardiovascular History: Reports: None Respiratory History: Reports: None Gastrointestinal History: Reports: None Genitourinary History: Reports: None Neurological History: Reports: None Psychiatric History: Reports: None Endocrine/Metabolic History: Reports: None Hematologic History: Reports: None Oncologic (Cancer) History: Reports: None Dermatologic History: Reports: None - Infectious Disease History Infectious Disease History: Reports: Chicken Pox, MRSA - Past Surgical History Head Surgeries/Procedures: Reports: None HEENT Surgical History: Reports: Oral Surgery Musculoskeletal Surgical History: Reports: Other (See Below) Other Musculoskeletal Surgeries/Procedures:: 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 Social & Family History - Family History Family Medical History: No Pertinent Family History - Caffeine Use Caffeine Use: Reports: None - Recreational Drug Use Recreational Drug Use: No ED ROS GENERAL - Review of Systems Review Of Systems: Comprehensive ROS is negative, except as noted in HPI. ED EXAM, SKIN/RASH Exam: See Below (See dictation) Course - Vital Signs Last Recorded V/S: Last Vital Signs Temp 97.8 F 12/11/20 14:48 Pulse 79 12/11/20 14:48 Resp 16 12/11/20 14:48 BP 128/80 12/11/20 14:48 Pulse Ox 97 12/11/20 14:48 - Orders/Labs/Meds Orders: Active Orders 24 hr Category Date Time Status Admission Status [Patient Status] [ADT] Stat ADT 12/11/20 16:15 Active CORONAVIRUS COVID-19 ATIF [MOLEC] Stat Lab 12/11/20 16:46 Ordered CULTURE BLOOD [BC] Stat Lab 12/11/20 15:19 Received CULTURE BLOOD [BC] Stat Lab 12/11/20 15:25 Received Blood Culture x2 Reflex Set [OM.PC] Stat Oth 12/11/20 14:53 Ordered Labs: Laboratory Tests 12/11/20 12/11/20 Range/Units 15:19 15:19 WBC 9.24 (4.0-11.0) K/uL RBC 4.48 L (4.50-5.90) M/uL Hgb 13.2 (13.0-17.0) g/dL Hct 38.9 (38.0-50.0) % MCV 86.8 (80.0-98.0) fL MCH 29.5 (27.0-32.0) pg MCHC 33.9 (31.0-37.0) g/dL RDW Std Deviation 41.6 (28.0-62.0) fl RDW Coeff of Aruna 13 (11.0-15.0) % Plt Count 230 (150-400) K/uL MPV 10.70 (7.40-12.00) fL Neut % (Auto) 78.8 (48.0-80.0) % Lymph % (Auto) 11.1 L (16.0-40.0) % [place] % (Auto) 6.8 (0.0-15.0) % Eos % (Auto) 3.2 (0.0-7.0) % Baso % (Auto) 0.1 (0.0-1.5) % Neut # (Auto) 7.3 H (1.4-5.7) K/uL Lymph # (Auto) 1.0 (0.6-2.4) K/uL [place] # (Auto) 0.6 (0.0-0.8) K/uL Eos # (Auto) 0.3 (0.0-0.7) K/uL Baso # (Auto) 0.0 (0.0-0.1) K/uL Nucleated RBC % 0.0 /100WBC Nucleated RBCs # 0 K/uL Sodium 137 (136-148) mmol/L Potassium 4.1 (3.5-5.1) mmol/L Chloride 101 (98-107) mmol/L Carbon Dioxide 26.2 (21.0-32.0) mmol/L BUN 13 (7.0-18.0) mg/dL Creatinine 1.0 (0.8-1.3) mg/dL Est Cr Clr Drug Dosing 122.06 mL/min Estimated GFR (MDRD) > 60.0 ml/min Glucose 89 (74-106) mg/dL Calcium 8.9 (8.5-10.1) mg/dL Total Bilirubin 0.4 (0.2-1.0) mg/dL AST 15 (15-37) IU/L ALT 25 (14-63) IU/L Alkaline Phosphatase 78 (46-116) U/L Total Protein 7.5 (6.4-8.2) g/dL Albumin 4.0 (3.4-5.0) g/dL Globulin 3.5 (2.6-4.0) g/dL Albumin/Globulin Ratio 1.1 (0.9-1.6) Meds: Medications Discontinued Medications Generic Name Dose Route Start Last Admin Trade Name Frelibertad PRN Reason Stop Dose Admin Vancomycin HCl 1 gm/ Sodium 250 mls @ 166 mls/hr 12/11/20 15:38 12/11/20 16:30 Chloride IV 12/11/20 17:08 166 mls/hr ONETIME ONE Administration Morphine Sulfate 4 mg 12/11/20 15:51 12/11/20 16:30 Morphine 4 Mg/Ml Syringe IVPUSH 12/11/20 15:52 4 mg ONETIME ONE Administration Ondansetron HCl 4 mg 12/11/20 15:57 12/11/20 16:30 Ondansetron 4 Mg/2 Ml Sdv IVPUSH 12/11/20 15:58 4 mg ONETIME ONE Administration Departure - Departure Time of Disposition: 16:54 Disposition: Admitted As Inpatient 65 Clinical Impression: Cellulitis Qualifiers: Site of cellulitis: extremity Site of cellulitis of extremity: lower extremity Laterality: right Qualified Code(s): L03.115 - Cellulitis of right lower limb - Discharge Information Referrals: Jayesh Reyes MD [Primary Care Provider] - Forms: ED Department Discharge Sepsis Event Note (ED) - Evaluation Sepsis Screening Result: No Definite Risk - Focused Exam Vital Signs: Vital Signs Temp Pulse Resp BP Pulse Ox 12/11/20 14:48 97.8 F 79 16 128/80 97 - My Orders Last 24 Hours: My Active Orders 12/11/20 14:53 Blood Culture x2 Reflex Set [OM.PC] Stat 12/11/20 15:19 CULTURE BLOOD [BC] Stat 12/11/20 15:25 CULTURE BLOOD [BC] Stat 12/11/20 16:15 Admission Status [Patient Status] [ADT] Stat 12/11/20 16:46 CORONAVIRUS COVID-19 ATIF [MOLEC] Stat - Assessment/Plan Last 24 Hours: My Active Orders 12/11/20 14:53 Blood Culture x2 Reflex Set [OM.PC] Stat 12/11/20 15:19 CULTURE BLOOD [BC] Stat 12/11/20 15:25 CULTURE BLOOD [BC] Stat 12/11/20 16:15 Admission Status [Patient Status] [ADT] Stat 12/11/20 16:46 CORONAVIRUS COVID-19 ATIF [MOLEC] Stat
[2020-12-11] MEDS ORDERED: Morphine 4 MG/ML Syringe IVPUSH ONE (15:51)
[2020-12-11] MEDS ORDERED: Ondansetron 4 MG/2 ML SDV IVPUSH ONE (15:57)
[2020-12-11 15:59] LABS: BLOOD UREA NITROGEN,BUN 13 mg/dL (7.0-18.0); CARBON DIOXIDE,CO2 26.2 mmol/L (21.0-32.0); CHLORIDE,CL 101 mmol/L (98-107); GLUCOSE RANDOM 89 mg/dL (74-106); POTASSIUM,K 4.1 mmol/L (3.5-5.1); SODIUM,NA 137 mmol/L (136-148)
--- NOTE | 2020-12-11 16:16 | CR ---
Indication: Cellulitis. Technique: Right knee 3 views. Comparison: None. Findings: No acute fracture or dislocation. The patella is normally aligned. Mild medial compartment narrowing. Trace knee joint effusion. Soft tissue swelling overlying the patella. No soft tissue gas. Impression: Soft tissue swelling overlying the patella. No other acute findings. Dictated by Adalgisa Alejandro MD @ 12/11/2020 4:14:[address] Adalgisa Alejandro @ Dec 11 2020 4:14PM
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
[2020-12-11] MEDS: Enoxaparin 40 MG/0.4 ML Syringe SUBCUT SCH (18:16)
[2020-12-11] MEDS: Morphine 2 MG/ML SYRINGE IVPUSH PRN (20:45)
[2020-12-12] MEDS: Morphine 2 MG/ML SYRINGE IVPUSH PRN ×3 (00:28→17:14)
[2020-12-12] MEDS: VANCOmycin 1.5 GM/300 ML 1.5 GM in Premix Bag 1 BAG IV SCH ×4 (00:33→23:59)
[2020-12-12 07:12] LABS: BLOOD UREA NITROGEN,BUN 15 mg/dL (7.0-18.0); CARBON DIOXIDE,CO2 27.8 mmol/L (21.0-32.0); CHLORIDE,CL 104 mmol/L (98-107); GLUCOSE RANDOM 97 mg/dL (74-106); POTASSIUM,K 4.3 mmol/L (3.5-5.1); SODIUM,NA 140 mmol/L (136-148)
--- NOTE | 2020-12-12 12:16 | PCM.PN ---
- General Info Date of Service: 12/12/20 Admission Dx/Problem (Free Text): Admission Diagnosis/Problem Admission Diagnosis/Problem Cellulitis Subjective Update: 35-year-old male with a history of recurrent MRSA skin infections admitted for right anterior knee cellulitis after failing outpatient Bactrim. Patient is treated with vancomycin. Pain is controlled. Patient states that his right leg is improving and the swelling has gone down. Patient denies pain. Patient is drinking fluids and tolerating diet. Patient denies difficulty with range of motion of the right knee. - Review of Systems General: Denies: Fever, Chills HEENT: Reports: No Symptoms Pulmonary: Reports: No Symptoms Cardiovascular: Reports: No Symptoms Gastrointestinal: Reports: No Symptoms Genitourinary: Reports: No Symptoms Musculoskeletal: Reports: Leg Pain. Denies: Joint Pain, Joint Swelling - Patient Data Vitals - Most Recent: Last Vital Signs Temp 97.8 F 12/12/20 07:25 Pulse 89 12/12/20 07:25 Resp 22 H 12/12/20 07:25 BP 111/66 12/12/20 07:25 Pulse Ox 95 12/12/20 07:25 Weight - Most Recent: 203 lb 3.2 oz I&O - Last 24 Hours: Intake & Output 12/11/20 12/12/20 12/12/20 22:59 06:59 14:59 Intake Total 34 750 Output Total 1000 Balance 34 -250 Lab Results Last 24 Hours: Laboratory Results - last 24 hr 12/11/20 12/11/20 12/11/20 Range/Units 15:19 15:19 16:04 WBC 9.24 (4.0-11.0) K/uL RBC 4.48 L (4.50-5.90) M/uL Hgb 13.2 (13.0-17.0) g/dL Hct 38.9 (38.0-50.0) % MCV 86.8 (80.0-98.0) fL MCH 29.5 (27.0-32.0) pg MCHC 33.9 (31.0-37.0) g/dL RDW Std Deviation 41.6 (28.0-62.0) fl RDW Coeff of Aruna 13 (11.0-15.0) % Plt Count 230 (150-400) K/uL MPV 10.70 (7.40-12.00) fL Neut % (Auto) 78.8 (48.0-80.0) % Lymph % (Auto) 11.1 L (16.0-40.0) % [place] % (Auto) 6.8 (0.0-15.0) % Eos % (Auto) 3.2 (0.0-7.0) % Baso % (Auto) 0.1 (0.0-1.5) % Neut # (Auto) 7.3 H (1.4-5.7) K/uL Lymph # (Auto) 1.0 (0.6-2.4) K/uL [place] # (Auto) 0.6 (0.0-0.8) K/uL Eos # (Auto) 0.3 (0.0-0.7) K/uL Baso # (Auto) 0.0 (0.0-0.1) K/uL Nucleated RBC % 0.0 /100WBC Nucleated RBCs # 0 K/uL Sodium 137 (136-148) mmol/L Potassium 4.1 (3.5-5.1) mmol/L Chloride 101 (98-107) mmol/L Carbon Dioxide 26.2 (21.0-32.0) mmol/L BUN 13 (7.0-18.0) mg/dL Creatinine 1.0 (0.8-1.3) mg/dL Est Cr Clr Drug Dosing 122.06 mL/min Estimated GFR (MDRD) > 60.0 ml/min Glucose 89 (74-106) mg/dL Calcium 8.9 (8.5-10.1) mg/dL Total Bilirubin 0.4 (0.2-1.0) mg/dL AST 15 (15-37) IU/L ALT 25 (14-63) IU/L Alkaline Phosphatase 78 (46-116) U/L Total Protein 7.5 (6.4-8.2) g/dL Albumin 4.0 (3.4-5.0) g/dL Globulin 3.5 (2.6-4.0) g/dL Albumin/Globulin Ratio 1.1 (0.9-1.6) SARS-CoV-2 RNA (ATIF) NEGATIVE (NEGATIVE) 12/12/20 12/12/20 Range/Units 05:58 05:58 WBC 8.13 (4.0-11.0) K/uL RBC 4.51 (4.50-5.90) M/uL Hgb 13.1 (13.0-17.0) g/dL Hct 39.8 (38.0-50.0) % MCV 88.2 (80.0-98.0) fL MCH 29.0 (27.0-32.0) pg MCHC 32.9 (31.0-37.0) g/dL RDW Std Deviation 41.7 (28.0-62.0) fl RDW Coeff of Aruna 13 (11.0-15.0) % Plt Count 235 (150-400) K/uL MPV 11.00 (7.40-12.00) fL Neut % (Auto) 77.8 (48.0-80.0) % Lymph % (Auto) 11.9 L (16.0-40.0) % [place] % (Auto) 7.1 (0.0-15.0) % Eos % (Auto) 3.0 (0.0-7.0) % Baso % (Auto) 0.2 (0.0-1.5) % Neut # (Auto) 6.3 H (1.4-5.7) K/uL Lymph # (Auto) 1.0 (0.6-2.4) K/uL [place] # (Auto) 0.6 (0.0-0.8) K/uL Eos # (Auto) 0.2 (0.0-0.7) K/uL Baso # (Auto) 0.0 (0.0-0.1) K/uL Nucleated RBC % 0.0 /100WBC Nucleated RBCs # 0 K/uL Sodium 140 (136-148) mmol/L Potassium 4.3 (3.5-5.1) mmol/L Chloride 104 (98-107) mmol/L Carbon Dioxide 27.8 (21.0-32.0) mmol/L BUN 15 (7.0-18.0) mg/dL Creatinine 1.2 (0.8-1.3) mg/dL Est Cr Clr Drug Dosing 101.71 mL/min Estimated GFR (MDRD) > 60.0 ml/min Glucose 97 (74-106) mg/dL Calcium 8.5 (8.5-10.1) mg/dL Total Bilirubin (0.2-1.0) mg/dL AST (15-37) IU/L ALT (14-63) IU/L Alkaline Phosphatase (46-116) U/L Total Protein (6.4-8.2) g/dL Albumin (3.4-5.0) g/dL Globulin (2.6-4.0) g/dL Albumin/Globulin Ratio (0.9-1.6) SARS-CoV-2 RNA (ATIF) (NEGATIVE) Med Orders - Current: Current Medications Enoxaparin Sodium (Enoxaparin 40 Mg/0.4 Ml Syringe) 40 mg SUBCUT Q24H [facility] Last Admin: 12/11/20 18:16 Dose: 40 mg Documented by: Vancomycin HCl 1.5 gm/ Premix 300 mls @ 150 mls/hr IV Q8H [facility] Last Admin: 12/12/20 08:56 Dose: 150 mls/hr Documented by: Morphine Sulfate (Morphine 2 Mg/Ml Syringe) 2 mg IVPUSH Q2H PRN PRN Reason: Pain Last Admin: 12/12/20 07:41 Dose: 2 mg Documented by: Vancomycin HCl (Pharmacy To Dose - Vancomycin) 1 dose .XX ASDIRECTED [facility] Discontinued Medications Vancomycin HCl 1 gm/ Sodium (Chloride) 250 mls @ 166 mls/hr IV ONETIME ONE Stop: 12/11/20 17:08 Last Admin: 12/11/20 16:30 Dose: 166 mls/hr Documented by: Morphine Sulfate (Morphine 4 Mg/Ml Syringe) 4 mg IVPUSH ONETIME ONE Stop: 12/11/20 15:52 Last Admin: 12/11/20 16:30 Dose: 4 mg Documented by: Ondansetron HCl (Ondansetron 4 Mg/2 Ml Sdv) 4 mg IVPUSH ONETIME ONE Stop: 12/11/20 15:58 Last Admin: 12/11/20 16:30 Dose: 4 mg Documented by: - Exam General: Alert, Oriented Neck: Supple Lungs: Clear to Auscultation Cardiovascular: Regular Rate, Regular Rhythm GI/Abdominal Exam: Soft, Non-Tender, No Distention Extremities: Other (Right anterior knee erythema and swelling has decreased compared to yesterday. Area is steep tender to touch.) Peripheral Pulses: 2+: Dorsalis Pedis (L), Dorsalis Pedis (R) Neurological: No New Focal Deficit - Patient Data Lab Results Last 24 hrs: Laboratory Results - last 24 hr 12/11/20 12/11/20 12/11/20 Range/Units 15:19 15:19 16:04 WBC 9.24 (4.0-11.0) K/uL RBC 4.48 L (4.50-5.90) M/uL Hgb 13.2 (13.0-17.0) g/dL Hct 38.9 (38.0-50.0) % MCV 86.8 (80.0-98.0) fL MCH 29.5 (27.0-32.0) pg MCHC 33.9 (31.0-37.0) g/dL RDW Std Deviation 41.6 (28.0-62.0) fl RDW Coeff of Aruna 13 (11.0-15.0) % Plt Count 230 (150-400) K/uL MPV 10.70 (7.40-12.00) fL Neut % (Auto) 78.8 (48.0-80.0) % Lymph % (Auto) 11.1 L (16.0-40.0) % [place] % (Auto) 6.8 (0.0-15.0) % Eos % (Auto) 3.2 (0.0-7.0) % Baso % (Auto) 0.1 (0.0-1.5) % Neut # (Auto) 7.3 H (1.4-5.7) K/uL Lymph # (Auto) 1.0 (0.6-2.4) K/uL [place] # (Auto) 0.6 (0.0-0.8) K/uL Eos # (Auto) 0.3 (0.0-0.7) K/uL Baso # (Auto) 0.0 (0.0-0.1) K/uL Nucleated RBC % 0.0 /100WBC Nucleated RBCs # 0 K/uL Sodium 137 (136-148) mmol/L Potassium 4.1 (3.5-5.1) mmol/L Chloride 101 (98-107) mmol/L Carbon Dioxide 26.2 (21.0-32.0) mmol/L BUN 13 (7.0-18.0) mg/dL Creatinine 1.0 (0.8-1.3) mg/dL Est Cr Clr Drug Dosing 122.06 mL/min Estimated GFR (MDRD) > 60.0 ml/min Glucose 89 (74-106) mg/dL Calcium 8.9 (8.5-10.1) mg/dL Total Bilirubin 0.4 (0.2-1.0) mg/dL AST 15 (15-37) IU/L ALT 25 (14-63) IU/L Alkaline Phosphatase 78 (46-116) U/L Total Protein 7.5 (6.4-8.2) g/dL Albumin 4.0 (3.4-5.0) g/dL Globulin 3.5 (2.6-4.0) g/dL Albumin/Globulin Ratio 1.1 (0.9-1.6) SARS-CoV-2 RNA (ATIF) NEGATIVE (NEGATIVE) 12/12/20 12/12/20 Range/Units 05:58 05:58 WBC 8.13 (4.0-11.0) K/uL RBC 4.51 (4.50-5.90) M/uL Hgb 13.1 (13.0-17.0) g/dL Hct 39.8 (38.0-50.0) % MCV 88.2 (80.0-98.0) fL MCH 29.0 (27.0-32.0) pg MCHC 32.9 (31.0-37.0) g/dL RDW Std Deviation 41.7 (28.0-62.0) fl RDW Coeff of Aruna 13 (11.0-15.0) % Plt Count 235 (150-400) K/uL MPV 11.00 (7.40-12.00) fL Neut % (Auto) 77.8 (48.0-80.0) % Lymph % (Auto) 11.9 L (16.0-40.0) % [place] % (Auto) 7.1 (0.0-15.0) % Eos % (Auto) 3.0 (0.0-7.0) % Baso % (Auto) 0.2 (0.0-1.5) % Neut # (Auto) 6.3 H (1.4-5.7) K/uL Lymph # (Auto) 1.0 (0.6-2.4) K/uL [place] # (Auto) 0.6 (0.0-0.8) K/uL Eos # (Auto) 0.2 (0.0-0.7) K/uL Baso # (Auto) 0.0 (0.0-0.1) K/uL Nucleated RBC % 0.0 /100WBC Nucleated RBCs # 0 K/uL Sodium 140 (136-148) mmol/L Potassium 4.3 (3.5-5.1) mmol/L Chloride 104 (98-107) mmol/L Carbon Dioxide 27.8 (21.0-32.0) mmol/L BUN 15 (7.0-18.0) mg/dL Creatinine 1.2 (0.8-1.3) mg/dL Est Cr Clr Drug Dosing 101.71 mL/min Estimated GFR (MDRD) > 60.0 ml/min Glucose 97 (74-106) mg/dL Calcium 8.5 (8.5-10.1) mg/dL Total Bilirubin (0.2-1.0) mg/dL AST (15-37) IU/L ALT (14-63) IU/L Alkaline Phosphatase (46-116) U/L Total Protein (6.4-8.2) g/dL Albumin (3.4-5.0) g/dL Globulin (2.6-4.0) g/dL Albumin/Globulin Ratio (0.9-1.6) SARS-CoV-2 RNA (ATIF) (NEGATIVE) Result Diagrams: 12/12/20 05:58 12/12/20 05:58 Sepsis Event Note - Evaluation Sepsis Screening Result: No Definite Risk - Focused Exam Vital Signs: Vital Signs Temp Pulse Resp BP Pulse Ox 12/12/20 07:25 97.8 F 89 22 H 111/66 95 12/12/20 05:00 98.4 F 82 16 104/73 97 12/12/20 00:26 98 F 74 16 121/65 95 - Problem List & Annotations (1) Cellulitis of right knee SNOMED Code(s): 45517322793365739 Code(s): L03.115 - CELLULITIS OF RIGHT LOWER LIMB Status: Acute Current Visit: Yes (2) History of MRSA infection SNOMED Code(s): 354203089, 480957017 Code(s): Z86.14 - PERSONAL HISTORY OF METHICILLIN RESIS STAPH INFECTION Status: Acute Current Visit: No - Problem List Review Problem List Initiated/Reviewed/Updated: Yes - My Orders Last 24 Hours: My Active Orders 12/11/20 Dinner Regular Diet [DIET] 12/11/20 17:46 Morphine 2 mg IVPUSH Q2H PRN 12/11/20 17:51 Oxygen Therapy [RC] PRN Up ad Trudy [RC] ASDIRECTED VTE/DVT Education [RC] PER UNIT ROUTINE Vital Signs [RC] Q4H Resuscitation Status Routine 12/11/20 18:00 Enoxaparin [Lovenox] 40 mg SUBCUT Q24H Pharmacy to Dose - Vancomycin 1 dose .XX ASDIRECTED 12/12/20 00:30 VANCOmycin 1.5 GM/300 ML 1.5 gm Premix Bag 1 bag IV Q8H - Plan Plan:: 35-year-old male with history of multiple recurrent MRSA skin infections admitted for cellulitis of the right anterior knee skin. Skin infection is improving, patient is afebrile. WBC count down trended. Vital signs are stable. Pain is controlled. Blood cultures are pending. Continue patient on IV vancomycin. Will consider discharge tomorrow. DVT prophylaxis with Lovenox.
[2020-12-12] MEDS: Enoxaparin 40 MG/0.4 ML Syringe SUBCUT SCH (17:18)
[2020-12-12] MEDS: Acetaminophen/HYDROcodone 325-10 MG Tab PO PRN (21:53)
[2020-12-13] MEDS: Acetaminophen/HYDROcodone 325-10 MG Tab PO PRN ×2 (05:14→12:35)
[2020-12-13 08:33] LABS: BLOOD UREA NITROGEN,BUN 12 mg/dL (7.0-18.0); CARBON DIOXIDE,CO2 27.8 mmol/L (21.0-32.0); CHLORIDE,CL 104 mmol/L (98-107); GLUCOSE RANDOM 100 mg/dL (74-106); POTASSIUM,K 4.4 mmol/L (3.5-5.1); SODIUM,NA 141 mmol/L (136-148)
[2020-12-13] MEDS: VANCOmycin 1.5 GM/300 ML 1.5 GM in Premix Bag 1 BAG IV SCH (11:06)
--- NOTE | 2020-12-13 11:35 | PCM.DCSUM1 ---
Discharge Summary - Hospital Course Free Text/Narrative:: 35-year-old male with a history of multiple MRSA infections presented with erythema, swelling and tenderness over the anterior right knee. Patient failed outpatient antibiotics with Bactrim. Patient's patient stated that he has MRSA skin infections 4-5 times per year and is hospitalized once per year requiring IV antibiotics. Patient was admitted for right anterior knees cellulitis and IV vancomycin. His CBC and BMP were trended. Patient's white count down trended and creatinine was within normal limits. Patient's pain was controlled with hydromorphone. Patient was tolerating p.o. intake and diet. Patient's pain subsided and the erythema regressed. Patient did not have difficulty with range of motion of his right knee. Patient's cellulitis is improving and is being discharged on doxycycline. - Discharge Data Discharge Date: 12/13/20 Discharge Disposition: Home, Self-Care 01 Condition: Stable - Referral to Home Health Primary Care Physician: Jayesh Reyes MD - Discharge Diagnosis/Problem(s) (1) Cellulitis of right knee SNOMED Code(s): 64847771295789627 ICD Code: L03.115 - CELLULITIS OF RIGHT LOWER LIMB Status: Acute Current Visit: Yes (2) History of MRSA infection SNOMED Code(s): 260023634, 444078858 ICD Code: Z86.14 - PERSONAL HISTORY OF METHICILLIN RESIS STAPH INFECTION Status: Acute Current Visit: No - Patient Instructions Diet: Regular Diet as Tolerated Activity: As Tolerated Notify Provider of: Fever, Increased Pain, Swelling and Redness - Discharge Plan *PRESCRIPTION DRUG MONITORING PROGRAM REVIEWED*: Not Applicable *COPY OF PRESCRIPTION DRUG MONITORING REPORT IN PATIENT AMEE: Not Applicable Prescriptions/Med Rec: Doxycycline [Vibra-Tabs] 100 mg PO Q12HR 10 Days #20 tab Home Medications: Home Meds Doxycycline [Vibra-Tabs] 100 mg PO Q12HR 10 Days #20 tab 12/13/20 [Rx] Patient Handouts: Cellulitis, Adult Referrals: Jayesh Reyes MD [Primary Care Provider] - 12/19/20 10:45 am - Discharge Summary/Plan Comment DC Time >30 min.: Yes - Review of Systems General: Denies: Fever, Weakness, Chills HEENT: Reports: No Symptoms Pulmonary: Reports: No Symptoms Cardiovascular: Denies: Chest Pain, Palpitations, Edema Gastrointestinal: Reports: No Symptoms Genitourinary: Reports: No Symptoms Musculoskeletal: Denies: Leg Pain, Joint Pain, Joint Swelling Neurological: Reports: No Symptoms Psychiatric: Reports: No Symptoms - Patient Data Vitals - Most Recent: Last Vital Signs Temp 97.8 F 12/13/20 07:54 Pulse 67 12/13/20 07:54 Resp 22 H 12/13/20 07:54 BP 106/55 L 12/13/20 07:54 Pulse Ox 93 L 12/13/20 07:54 Weight - Most Recent: 203 lb 3.2 oz I&O - Last 24 hours: Intake & Output 12/12/20 12/13/20 12/13/20 22:59 06:59 14:59 Intake Total 1134 850 Output Total 1400 850 Balance -266 0 Lab Results - Last 24 hrs: Laboratory Results - last 24 hr 12/13/20 12/13/20 12/13/20 Range/Units 08:08 08:08 08:08 WBC 6.28 (4.0-11.0) K/uL RBC 4.55 (4.50-5.90) M/uL Hgb 13.3 (13.0-17.0) g/dL Hct 39.7 (38.0-50.0) % MCV 87.3 (80.0-98.0) fL MCH 29.2 (27.0-32.0) pg MCHC 33.5 (31.0-37.0) g/dL RDW Std Deviation 41.5 (28.0-62.0) fl RDW Coeff of Aruna 13 (11.0-15.0) % Plt Count 229 (150-400) K/uL MPV 10.40 (7.40-12.00) fL Neut % (Auto) 73.4 (48.0-80.0) % Lymph % (Auto) 13.7 L (16.0-40.0) % [place] % (Auto) 8.4 (0.0-15.0) % Eos % (Auto) 4.3 (0.0-7.0) % Baso % (Auto) 0.2 (0.0-1.5) % Neut # (Auto) 4.6 (1.4-5.7) K/uL Lymph # (Auto) 0.9 (0.6-2.4) K/uL [place] # (Auto) 0.5 (0.0-0.8) K/uL Eos # (Auto) 0.3 (0.0-0.7) K/uL Baso # (Auto) 0.0 (0.0-0.1) K/uL Nucleated RBC % 0.0 /100WBC Nucleated RBCs # 0 K/uL Sodium 141 (136-148) mmol/L Potassium 4.4 (3.5-5.1) mmol/L Chloride 104 (98-107) mmol/L Carbon Dioxide 27.8 (21.0-32.0) mmol/L BUN 12 (7.0-18.0) mg/dL Creatinine 0.9 (0.8-1.3) mg/dL Est Cr Clr Drug Dosing 135.62 mL/min Estimated GFR (MDRD) > 60.0 ml/min Glucose 100 (74-106) mg/dL Calcium 8.5 (8.5-10.1) mg/dL Vancomycin Trough 16.4 H (5.0-10.0) ug/mL CONRAD Results - Last 24 hrs: Microbiology 12/11/20 15:25 Aerobic Blood Culture - Preliminary Blood - Venous - Lab Draw NO GROWTH AFTER 1 DAY Anaerobic Blood Culture - Preliminary NO GROWTH AFTER 1 DAY 12/11/20 15:19 Aerobic Blood Culture - Preliminary Blood - Venous NO GROWTH AFTER 1 DAY Anaerobic Blood Culture - Preliminary NO GROWTH AFTER 1 DAY Med Orders - Current: Current Medications Hydrocodone Bitart/Acetaminophen (Acetaminophen/Hydrocodone 325-10 Mg Tab) 1 tab PO Q6H PRN PRN Reason: Pain Last Admin: 12/13/20 05:14 Dose: 1 tab Documented by: Enoxaparin Sodium (Enoxaparin 40 Mg/0.4 Ml Syringe) 40 mg SUBCUT Q24H IZZY Last Admin: 12/12/20 17:18 Dose: 40 mg Documented by: Vancomycin HCl 1.5 gm/ Premix 300 mls @ 150 mls/hr IV Q12H [facility] Vancomycin HCl (Pharmacy To Dose - Vancomycin) 1 dose .XX ASDIRECTED IZZY Discontinued Medications Vancomycin HCl 1 gm/ Sodium (Chloride) 250 mls @ 166 mls/hr IV ONETIME ONE Stop: 12/11/20 17:08 Last Admin: 12/11/20 16:30 Dose: 166 mls/hr Documented by: Vancomycin HCl 1.5 gm/ Premix 300 mls @ 150 mls/hr IV Q8H IZZY Last Admin: 12/13/20 11:06 Dose: Not Given Documented by: Morphine Sulfate (Morphine 4 Mg/Ml Syringe) 4 mg IVPUSH ONETIME ONE Stop: 12/11/20 15:52 Last Admin: 12/11/20 16:30 Dose: 4 mg Documented by: Morphine Sulfate (Morphine 2 Mg/Ml Syringe) 2 mg IVPUSH Q2H PRN PRN Reason: Pain Last Admin: 12/12/20 17:14 Dose: 2 mg Documented by: Ondansetron HCl (Ondansetron 4 Mg/2 Ml Sdv) 4 mg IVPUSH ONETIME ONE Stop: 12/11/20 15:58 Last Admin: 12/11/20 16:30 Dose: 4 mg Documented by: - Exam General: Reports: Alert, Oriented, Cooperative, No Acute Distress Neck: Reports: Supple Lungs: Reports: Clear to Auscultation Cardiovascular: Reports: Regular Rate, Regular Rhythm, No Murmurs GI/Abdominal Exam: Normal Bowel Sounds, Soft, Non-Tender, No Distention Extremities: No Pedal Edema, Other (Right lower extremity erythema has regressed and only involves the anterior skin over the patella. Skin over anterior patella tender to touch. No swelling. Warm to touch. Range of motion intact.). No: Santana's Sign, Leg Pain Wound/Incisions: Reports: No Drainage Neurological: Reports: No New Focal Deficit
[2020-12-13] MEDS ORDERED: VANCOmycin 1.5 GM/300 ML 1.5 GM in Premix Bag 1 BAG IV SCH (12:30)
[2020-12-13 15:01] VITALS: BP 120/73; PULSE 70
== END 2020-12-13 15:45 | disposition home or self-care (01) | DRG 603 ==
LOC: MW.ED 14:19 → MW.MS 16:15
PROVIDERS: ADMIT Internal Medicine; ATTEND Internal Medicine
DX: L03.115 Cellulitis of right lower limb (principal); Z86.14 Personal history of Methicillin resistant Staphylococcus aureus infection; Z20.822 Contact with and (suspected) exposure to COVID-19
CPT/HCPCS: 36415; 73562-26-RT; 73562-RT; 80048; 80053; 80202; 85025; 87040; 99284-25; A9270-GY; J1650; J2270; J2405; J3370; J7050; U0002

== ENCOUNTER 2021-01-30 03:21 | Emergency (ER) | payer OTHER ==
[2021-01-30] MEDS ORDERED: Ondansetron 4 MG Tab.DIS PO ONE (03:44)
[2021-01-30] MEDS ORDERED: Lactated Ringers 1,000 ML IV ONE (03:44)
--- NOTE | 2021-01-30 03:46 | EDM.PDOC ---
ED HPI GENERAL MEDICAL PROBLEM - General Chief Complaint: General Stated Complaint: COVID POSITIVE, VOMITING, BACK PAIN Time Seen by Provider: 01/30/21 03:41 Source of Information: Reports: Patient History Limitations: Reports: No Limitations - History of Present Illness INITIAL COMMENTS - FREE TEXT/NARRATIVE: 36-year-old male presents with symptoms consistent with Covid. He admits to chest congestion, cough, fever, chills, anosmia, glutei, generalized malaise and diffuse myalgia and 4days of vomiting. He was not vaccinated against Covid. ROS: A 10-point review of systems, other than pertinent positives and negatives as stated per HPI, is otherwise negative Past medical history: No additional pertinent history Past Surgical history: No additional pertinent history Social history: No additional pertinent history Family history: No additional pertinent history PHYSICAL EXAM General: AOx4, GCS = 15, mild distress HEENT: dry mucous membrane Neck: supple, no meningismus, no Kernig or Brudzinski Cardiac: S1S2 RRR Respiratory: CTAB, no crackles or rales, no wheezing Abdomen: Soft, nontender, no rebound or guarding, nondistended, no pulsatile mass. Back: nontender Musculoskeletal: NVI distally, no deformity Neuro: No focal deficits, CN 2 - 12 WNL. Generalized Pain Score (Numeric/FACES): 8 - Related Data Allergies Allergy/AdvReac Type Severity Reaction Status Date / Time No Known Allergies Allergy Verified 01/30/21 03:50 Home Meds: Home Meds Doxycycline [Vibra-Tabs] 100 mg PO Q12HR 10 Days #20 tab 12/13/20 [Rx] Benzonatate 100 mg PO BID #10 capsule 01/30/21 [Rx] Ondansetron [Zofran ODT] 4 mg PO Q6H PRN #12 tab.dis 01/30/21 [Rx] Past Medical History - Past Health History Medical/Surgical History: Denies Medical/Surgical History HEENT History: Reports: None Cardiovascular History: Reports: None Respiratory History: Reports: None Gastrointestinal History: Reports: None Genitourinary History: Reports: None Neurological History: Reports: None Psychiatric History: Reports: None Endocrine/Metabolic History: Reports: None Hematologic History: Reports: None Oncologic (Cancer) History: Reports: None Dermatologic History: Reports: None, Cellulitis - Infectious Disease History Infectious Disease History: Reports: Chicken Pox, MRSA - Past Surgical History Head Surgeries/Procedures: Reports: None HEENT Surgical History: Reports: Oral Surgery Musculoskeletal Surgical History: Reports: Other (See Below) Other Musculoskeletal Surgeries/Procedures:: 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 Social & Family History - Family History Family Medical History: No Pertinent Family History - Caffeine Use Caffeine Use: Reports: Coffee, Soda, Tea - Sexual History Sexual History: Reports: Sexually Active, Single Partner (Sexually active with his . No history of STIs.) - Living Situation & Occupation Living situation: Reports: , with Spouse Occupation: Employed ED ROS GENERAL - Review of Systems Review Of Systems: See Below (see dictation) ED EXAM, GENERAL - Physical Exam Exam: See Below (see dictation) #1 Interpretation EKG Interpretation Comments: Heart rate = 69 bpm, normal sinus rhythm, normal QRS interval, no STEMI. EKG and rhythm strip interpreted by me at 0405 Course - Vital Signs Last Recorded V/S: Last Vital Signs Temp 99.5 F 01/30/21 03:31 Pulse 77 01/30/21 05:29 Resp 14 01/30/21 05:29 BP 125/72 01/30/21 05:29 Pulse Ox 96 01/30/21 05:29 - Orders/Labs/Meds Orders: Active Orders 24 hr Category Date Time Status Cardiac Monitoring [RC] . DIRECTED Care 01/30/21 03:42 Active PROCALCITONIN [REF] Stat Lab 01/30/21 03:40 Received Isolation [COMM] Routine Oth 01/30/21 03:43 Active Isolation [COMM] Stat Oth 01/30/21 03:42 Active Labs: Laboratory Tests 01/30/21 01/30/21 01/30/21 Range/Units 03:40 03:40 03:40 WBC 5.46 (4.0-11.0) K/uL RBC 4.84 (4.50-5.90) M/uL Hgb 14.2 (13.0-17.0) g/dL Hct 40.9 (38.0-50.0) % MCV 84.5 (80.0-98.0) fL MCH 29.3 (27.0-32.0) pg MCHC 34.7 (31.0-37.0) g/dL RDW Std Deviation 40.3 (28.0-62.0) fl RDW Coeff of Aruna 13 (11.0-15.0) % Plt Count 227 (150-400) K/uL MPV 10.10 (7.40-12.00) fL Neut % (Auto) 81.5 H (48.0-80.0) % Lymph % (Auto) 10.1 L (16.0-40.0) % Terrell % (Auto) 8.4 (0.0-15.0) % Eos % (Auto) 0.0 (0.0-7.0) % Baso % (Auto) 0.0 (0.0-1.5) % Neut # (Auto) 4.5 (1.4-5.7) K/uL Lymph # (Auto) 0.6 (0.6-2.4) K/uL Terrell # (Auto) 0.5 (0.0-0.8) K/uL Eos # (Auto) 0.0 (0.0-0.7) K/uL Baso # (Auto) 0.0 (0.0-0.1) K/uL Nucleated RBC % 0.0 /100WBC Nucleated RBCs # 0 K/uL INR D-Dimer, Quantitative (0.0-0.50) mg/L FEU Sodium 138 (136-148) mmol/L Potassium 3.7 (3.5-5.1) mmol/L Chloride 100 (98-107) mmol/L Carbon Dioxide 27.9 (21.0-32.0) mmol/L BUN 19 H (7.0-18.0) mg/dL Creatinine 1.2 (0.8-1.3) mg/dL Est Cr Clr Drug Dosing 100.04 mL/min Estimated GFR (MDRD) > 60.0 ml/min Glucose 128 H (74-106) mg/dL Lactic Acid (0.4-2.0) mmol/L Calcium 8.5 (8.5-10.1) mg/dL Ferritin 699 H (26-388) ng/mL Total Bilirubin 0.5 (0.2-1.0) mg/dL Direct Bilirubin 0.10 (0.0-0.5) mg/dL Indirect Bilirubin 0.40 AST 43 H (15-37) IU/L ALT 40 (14-63) IU/L Alkaline Phosphatase 70 (46-116) U/L Lactate Dehydrogenase 226 (81-234) U/L Creatine Kinase 277 (26-308) U/L Troponin I < 0.050 (0.000-0.056) ng/mL C-Reactive Protein 17.80 H (0.00-0.90) mg/dL Total Protein 7.3 (6.4-8.2) g/dL Albumin 3.1 L (3.4-5.0) g/dL Globulin 4.2 H (2.6-4.0) g/dL Albumin/Globulin Ratio 0.7 L (0.9-1.6) SARS-CoV-2 RNA (ATIF) (NEGATIVE) 01/30/21 01/30/21 01/30/21 Range/Units 03:40 03:40 03:45 WBC (4.0-11.0) K/uL RBC (4.50-5.90) M/uL Hgb (13.0-17.0) g/dL Hct (38.0-50.0) % MCV (80.0-98.0) fL MCH (27.0-32.0) pg MCHC (31.0-37.0) g/dL RDW Std Deviation (28.0-62.0) fl RDW Coeff of Aruna (11.0-15.0) % Plt Count (150-400) K/uL MPV (7.40-12.00) fL Neut % (Auto) (48.0-80.0) % Lymph % (Auto) (16.0-40.0) % Terrell % (Auto) (0.0-15.0) % Eos % (Auto) (0.0-7.0) % Baso % (Auto) (0.0-1.5) % Neut # (Auto) (1.4-5.7) K/uL Lymph # (Auto) (0.6-2.4) K/uL Terrell # (Auto) (0.0-0.8) K/uL Eos # (Auto) (0.0-0.7) K/uL Baso # (Auto) (0.0-0.1) K/uL Nucleated RBC % /100WBC Nucleated RBCs # K/uL INR 1.04 D-Dimer, Quantitative 0.71 H (0.0-0.50) mg/L FEU Sodium (136-148) mmol/L Potassium (3.5-5.1) mmol/L Chloride (98-107) mmol/L Carbon Dioxide (21.0-32.0) mmol/L BUN (7.0-18.0) mg/dL Creatinine (0.8-1.3) mg/dL Est Cr Clr Drug Dosing mL/min Estimated GFR (MDRD) ml/min Glucose (74-106) mg/dL Lactic Acid (0.4-2.0) mmol/L Calcium (8.5-10.1) mg/dL Ferritin (26-388) ng/mL Total Bilirubin (0.2-1.0) mg/dL Direct Bilirubin (0.0-0.5) mg/dL Indirect Bilirubin AST (15-37) IU/L ALT (14-63) IU/L Alkaline Phosphatase (46-116) U/L Lactate Dehydrogenase (81-234) U/L Creatine Kinase (26-308) U/L Troponin I (0.000-0.056) ng/mL C-Reactive Protein (0.00-0.90) mg/dL Total Protein (6.4-8.2) g/dL Albumin (3.4-5.0) g/dL Globulin (2.6-4.0) g/dL Albumin/Globulin Ratio (0.9-1.6) SARS-CoV-2 RNA (ATIF) POSITIVE H (NEGATIVE) 01/30/21 Range/Units 04:00 WBC (4.0-11.0) K/uL RBC (4.50-5.90) M/uL Hgb (13.0-17.0) g/dL Hct (38.0-50.0) % MCV (80.0-98.0) fL MCH (27.0-32.0) pg MCHC (31.0-37.0) g/dL RDW Std Deviation (28.0-62.0) fl RDW Coeff of Aruna (11.0-15.0) % Plt Count (150-400) K/uL MPV (7.40-12.00) fL Neut % (Auto) (48.0-80.0) % Lymph % (Auto) (16.0-40.0) % Terrell % (Auto) (0.0-15.0) % Eos % (Auto) (0.0-7.0) % Baso % (Auto) (0.0-1.5) % Neut # (Auto) (1.4-5.7) K/uL Lymph # (Auto) (0.6-2.4) K/uL Terrell # (Auto) (0.0-0.8) K/uL Eos # (Auto) (0.0-0.7) K/uL Baso # (Auto) (0.0-0.1) K/uL Nucleated RBC % /100WBC Nucleated RBCs # K/uL INR D-Dimer, Quantitative (0.0-0.50) mg/L FEU Sodium (136-148) mmol/L Potassium (3.5-5.1) mmol/L Chloride (98-107) mmol/L Carbon Dioxide (21.0-32.0) mmol/L BUN (7.0-18.0) mg/dL Creatinine (0.8-1.3) mg/dL Est Cr Clr Drug Dosing mL/min Estimated GFR (MDRD) ml/min Glucose (74-106) mg/dL Lactic Acid 1.2 (0.4-2.0) mmol/L Calcium (8.5-10.1) mg/dL Ferritin (26-388) ng/mL Total Bilirubin (0.2-1.0) mg/dL Direct Bilirubin (0.0-0.5) mg/dL Indirect Bilirubin AST (15-37) IU/L ALT (14-63) IU/L Alkaline Phosphatase (46-116) U/L Lactate Dehydrogenase (81-234) U/L Creatine Kinase (26-308) U/L Troponin I (0.000-0.056) ng/mL C-Reactive Protein (0.00-0.90) mg/dL Total Protein (6.4-8.2) g/dL Albumin (3.4-5.0) g/dL Globulin (2.6-4.0) g/dL Albumin/Globulin Ratio (0.9-1.6) SARS-CoV-2 RNA (ATIF) (NEGATIVE) Meds: Medications Discontinued Medications Generic Name Dose Route Start Last Admin Trade Name Pasqualeq PRN Reason Stop Dose Admin Lactated Ringer's 1,000 mls @ 999 mls/hr 01/30/21 03:44 01/30/21 04:02 Ringers, Lactated IV 01/30/21 04:44 999 mls/hr .BOLUS ONE Administration Ketorolac Tromethamine 30 mg 01/30/21 05:29 01/30/21 05:38 Ketorolac 30 Mg/Ml Sdv IVPUSH 01/30/21 05:30 30 mg ONETIME ONE Administration Ondansetron HCl 4 mg 01/30/21 03:44 01/30/21 03:59 Ondansetron 4 Mg Tab.Dis PO 01/30/21 03:45 Not Given ONETIME ONE Ondansetron HCl 4 mg 01/30/21 03:58 01/30/21 04:03 Ondansetron 4 Mg/2 Ml Sdv IVPUSH 01/30/21 03:59 4 mg ONETIME ONE Administration Ondansetron HCl 4 mg 01/30/21 04:38 01/30/21 04:48 Ondansetron 4 Mg/2 Ml Sdv IVPUSH 01/30/21 04:39 4 mg ONETIME ONE Administration Promethazine HCl 12.5 mg 01/30/21 04:38 01/30/21 04:48 Promethazine 25 Mg/Ml Sdv IM 01/30/21 04:39 12.5 mg ONETIME ONE Administration - Re-Assessments/Exams Free Text/Narrative Re-Assessment/Exam: 01/30/21 06:36 After IV fluids and Zofran in the ER, the patient improved and is currently stable for discharge. I performed a repeat exam and did not appreciate new abnormal findings. Patient exhibits normal vital signs and has a normal gait on road test. He is not hypoxic. I advised the patient to return to the ER for reevaluation if symptoms worsened, including fever, worsening dyspnea, hypoxia less than 90%, or any other worrisome symptoms. I instructed the patient to follow up with their PCP within 2-3 days. MEDICAL DECISION MAKING: I reviewed the patients past medical records, lab and radiographic findings. I discussed the case with the patient. My differential diagnosis included: Covid, viral pneumonia, influenza, electrolyte abnormality. This patient was evaluated for the symptoms described in the history of present illness. They were evaluated in the context of the global COVID-19 pandemic, which necessitated consideration that the patient might be at risk for infection with the SARS-CoV-2 virus that causes COVID-19. Institutional protocols and algorithms that pertain to the evaluation of patients at risk for COVID-19 are in a state of rapid change based on information released by regulatory bodies including the CDC and federal and state organizations. These policies and algorithms were followed during the patient's care. I wore full PPE, N95, face shield, gown and gloves throughout my evaluation and care of this patient. I recommended home isolation. given home isolation instructions. The patient is well appearing, not in respiratory distress, not hypoxic, no tachyneia, no retractions. I instructed patient to return immediately for worsening symptoms, sob, chest pain, lightheadedness or other concerns. I instructed him to use a pulse oximeter at home to return if he desats to less than 90%. His chest x-ray demonstrates findings consistent with viral Covid, I do not suspect bacterial consolidation needing antibiotics. Patient voiced understanding and questions answered. Departure - Departure Time of Disposition: 06:38 Disposition: Home, Self-Care 01 Condition: Good Clinical Impression: COVID-19 - Discharge Information *PRESCRIPTION DRUG MONITORING PROGRAM REVIEWED*: Not Applicable *COPY OF PRESCRIPTION DRUG MONITORING REPORT IN PATIENT AMEE: Not Applicable Prescriptions: Benzonatate 100 mg PO BID #10 capsule Ondansetron [Zofran ODT] 4 mg PO Q6H PRN #12 tab.dis PRN Reason: Vomiting Instructions: COVID-19 Frequently Asked Questions, COVID-19 Vaccine Information, What You Should Know About COVID-19 to Protect Yourself and Others - CDC, How to Wear and Take Off Your Mask - CDC (08/15/2020), COVID-19: What to Do if You Are Sick - [facility] (05/16/2020) Referrals: Jayesh Reyes MD [Primary Care Provider] - 3 Days Forms: ED Department Discharge Additional Instructions: The need for follow-up, as well as the timing and circumstances, are variable depending upon the specifics of your emergency department visit. If you don't have a primary care physician on staff, we will provide you with a referral. We always advise you to contact your personal physician following an emergency department visit to inform them of the circumstance of the visit and for follow-up with them and/or the need for any referrals to a consulting specialist. The emergency department will also refer you to a specialist when appropriate. This referral assures that you have the opportunity for follow-up care with a specialist. All of these measure are taken in an effort to provide you with optimal care, which includes your follow-up. Under all circumstances we always encourage you to contact your private physician who remains a resource for coordinating your care. When calling for follow-up care, please make the office aware that this follow-up is from your recent emergency room visit. If for any reason you are refused follow-up, please contact the [facility] Emergency Department at and asked to speak to the emergency department charge nurse. If you do not have a primary care doctor, please follow up with the clinics below within 3-5 days. [facility] - Primary Care [address] [place] [id number] [id number] Sepsis Event Note (ED) - Focused Exam Vital Signs: Vital Signs Temp Pulse Resp BP Pulse Ox 01/30/21 05:29 77 14 125/72 96 01/30/21 03:31 99.5 F 67 20 113/74 98 - My Orders Last 24 Hours: My Active Orders 01/30/21 03:40 PROCALCITONIN [REF] Stat 01/30/21 03:42 Cardiac Monitoring [RC] . DIRECTED Isolation [COMM] Stat 01/30/21 03:43 Isolation [COMM] Routine - Assessment/Plan Last 24 Hours: My Active Orders 01/30/21 03:40 PROCALCITONIN [REF] Stat 01/30/21 03:42 Cardiac Monitoring [RC] . DIRECTED Isolation [COMM] Stat 01/30/21 03:43 Isolation [COMM] Routine
[2021-01-30] MEDS ORDERED: Ondansetron 4 MG/2 ML SDV IVPUSH ONE ×2 (03:58→04:38)
[2021-01-30 04:20] LABS: BLOOD UREA NITROGEN,BUN 19 mg/dL (7.0-18.0); CARBON DIOXIDE,CO2 27.9 mmol/L (21.0-32.0); CHLORIDE,CL 100 mmol/L (98-107); GLUCOSE RANDOM 128 mg/dL (74-106); POTASSIUM,K 3.7 mmol/L (3.5-5.1); SODIUM,NA 138 mmol/L (136-148)
--- NOTE | 2021-01-30 04:34 | CR ---
Indication: Chest pain and shortness of breath Technique: Chest 1 view Comparison: No December 24, 2016 ne Findings/Impression: New patchy infiltrates throughout the right lung and at the left lung base concerning for infection, including COVID-19. No pneumothorax or effusion. Normal cardiomediastinal silhouette. No acute osseous abnormality. Dictated by Lore Chavez MD @ 01/30/2021 4:32:57 AM (Electronically Signed)
[2021-01-30] MEDS ORDERED: Promethazine 25 MG/ML SDV IM ONE (04:38)
[2021-01-30] MEDS ORDERED: Ketorolac 30 MG/ML SDV IVPUSH ONE (05:29)
[2021-01-30 07:01] VITALS: BP 116/70; PULSE 62
== END 2021-01-30 06:56 | disposition home or self-care (01) ==
LOC: MW.ED 03:21
DX: U07.1 COVID-19 (principal)
CPT/HCPCS: 36415; 71045; 80048; 80076; 82550; 82728; 83605; 83615; 84145; 84484; 85025; 85379; 85610; 86140; 87635; 87804; 93005; 96372; 96374; 96375; 96376; 99284; J1885; J2405; J2550; J7120; U0002

== ENCOUNTER 2023-03-08 04:06 | Emergency (ER) | payer OTHER ==
[2023-03-08] MEDS ORDERED: Ketorolac 30 MG/ML SDV IVPUSH ONE (04:09)
[2023-03-08] MEDS ORDERED: Sodium Chloride 0.9% 1,000 ML IV ONE (04:09)
[2023-03-08] MEDS ORDERED: Ondansetron 4 MG/2 ML SDV IVPUSH ONE (04:09)
[2023-03-08] MEDS ORDERED: Morphine 4 MG/ML Syringe IVPUSH ONE ×2 (04:12→06:27)
[2023-03-08 04:17] VITALS: BP 105/74; PULSE 64
[2023-03-08 04:25] LABS: BASOPHILS ABSOLUTE AUTO 0.03 K/uL (0.00-0.20); BASOPHILS PERCENT AUTO 0.5 % (0.0-1.0); EOSINOPHILS ABSOLUTE AUTO 0.37 K/uL (0.00-0.45); EOSINOPHILS PERCENT AUTO 5.6 % (0.0-6.0); HEMATOCRIT 39.6 % (42.0-52.0); HEMOGLOBIN 13.6 g/dL (14.0-18.0); IMMATURE GRAN ABSOLUTE AUTO 0.01 K/uL (0.00-0.05); IMMATURE GRAN PERCENT AUTO 0.2 % (0.0-0.4); LYMPHOCYTES ABSOLUTE AUTO 1.67 K/uL (1.00-4.80); LYMPHOCYTES PERCENT AUTO 25.1 % (24.0-44.0); MEAN CORPUSCULAR HEMOGLOBIN 29.1 pg (28.0-32.0); MEAN CORPUSCULAR HGB CONC 34.3 g/dL (32.0-36.0); MEAN CORPUSCULAR VOLUME 84.6 fL (83.0-99.0); MEAN PLATELET VOLUME 10.3 fL (9.4-12.4); MONOCYTES ABSOLUTE AUTO 0.42 K/uL (0.00-0.80); MONOCYTES PERCENT AUTO 6.3 % (0.0-8.0); NEUTROPHILS ABSOLUTE AUTO 4.15 K/uL (1.80-7.70); NEUTROPHILS PERCENT AUTO 62.3 % (41.0-71.0); PLATELET COUNT,PLT 238 K/uL (150-400); RED BLOOD CELL COUNT 4.68 M/uL (4.52-5.90); WHITE BLOOD CELL COUNT,WBC 6.65 K/uL (3.9-11.3)
[2023-03-08 04:43] LABS: BILIRUBIN,URINE NEGATIVE (NEGATIVE); COLOR,URINE YELLOW; GLUCOSE,URINE NEGATIVE (NEGATIVE); KETONES,URINE TRACE mg/dL (NEGATIVE); LEUKOCYTE ESTERASE,URINE NEGATIVE (NEGATIVE); NITRITE,URINE NEGATIVE (NEGATIVE); OCCULT BLOOD,URINE LARGE (NEGATIVE); PH,URINE 5.5 (5.0-8.0); PROTEIN,URINE NEGATIVE (NEGATIVE); UROBILINOGEN,URINE 0.2 EU/dL (<2.0)
[2023-03-08] MEDS ORDERED: Iopamidol 755 MG/ML 500 ML Multipack Bottle IVPUSH ONE (04:44)
[2023-03-08 04:49] LABS: APPEARANCE,URINE HAZY
[2023-03-08 04:50] LABS: A/G RATIO 1.1 (0.9-1.6); ALBUMIN 3.9 g/dL (3.4-5.0); BILIRUBIN TOTAL 0.2 mg/dL (0.2-1.0); CALCIUM 9.2 mg/dL (8.5-10.1); CREATININE 1.5 mg/dL (0.8-1.3); EST CRCL DRUG DOSING (CG) 78.48 mL/min; POTASSIUM,K 3.4 mmol/L (3.5-5.1); PROTEIN TOTAL,TP 7.5 g/dL (6.4-8.2)
[2023-03-08 04:52] LABS: BACTERIA,URINE RARE (NEGATIVE); EPITHELIAL CELLS,URINE RARE (NONE-FEW); RBC,URINE 55-60 (0-2/HPF); WBC,URINE 0-1 (0-5/HPF)
== END 2023-03-08 06:39 | disposition home or self-care (01) ==
LOC: MW.ED 04:06
DX: N20.0 Calculus of kidney (principal)
CPT/HCPCS: 36415; 74177; 80053; 81001; 83690; 85025; 96361; 96374; 96375; 96376; 99284; J1885; J2270; J2405; J7030; Q9967